=== PATIENT | female | born 1960 | race Caucasian/White ===

== ENCOUNTER 2021-05-08 15:16 | Emergency (ER) | payer MEDICARE, OTHER, SELFPAY ==
--- NOTE | ~2021-05-08 | XR_ITS ---
EXAMINATION: XR hip LT 2V w AP pelvis DATE: 05/08/2021 16:12 INDICATION: Left hip pain. TECHNIQUE: An anteroposterior view of the pelvis and 2 views of left hip were obtained. COMPARISON: None. FINDINGS: Bone alignment is normal. No fracture. There is mild osteoarthritis of the hips. There is m oderate lumbar spondylosis. IMPRESSION: 1. Mild osteoarthritis of the hips. Reviewed, dictated and finalized at location A.
[2021-05-08 15:33] VITALS: BP 139/108; PULSE 59; RESP 16; TEMP 36.3; O2SAT 100
--- NOTE | 2021-05-08 15:37 | ED.GENADULT ---
HPI - General Adult General Chief complaint: Extremity Problem,Nontraumatic Stated complaint: lt hip pain Time Seen by Provider: 05/08/21 15:37 Source: patient, family (spouse (Eva gave permission to speak in front of)) and RN notes reviewed Mode of arrival: wheelchair Limitations: no limitations History of Present Illness HPI narrative: 60-year-old female presents with complaints of left hip pain for the past 4-5 days. Eva reports she started having pain in LT hip without injury. Ibuprofen 400mg last on 05/08/2021 without relief. Denies radiation of pain. ?No numbness or tingling or bleeding. ?No swelling. ?No loss of mobility. Exacerbating factor consists of weight. No relieving factors. Denies recent travel or long car rides. No history of DVT or PE. No chest pain or dyspnea. Remains active. ?The patient reports she has not been diagnosed with COVID-19. The patient reports she received 2 Pfizer COVID-19 vaccines. The patient reports she is not waiting for the results of a COVID-19 lab test. ?The patient reports she does not have fever, chills, weakness, or fatigue. ?The patient reports she does not have a new or worsening cough. The patient reports she does not have any rhinorrhea, congestion, sore throat, loss of taste and/or smell, abdominal pain, and diarrhea. ?Tolerating po intake well. ?Denies concerns for COVID-19 or exposures. ?At this time, the patient is not suspected of having COVID-19. Some parts of this dictation were generated by voice recognition software and may contain typographical and/or grammatical inaccuracies. Related Data Home Medications Medication Instructions Recorded Confirmed hydrocodone 5 mg-acetaminophen 325 1 tablet PO Q6H PRN 03/28/20 03/28/20 mg tablet nadolol 05/08/21 Allergies Allergy/AdvReac Type Severity Reaction Status Date / Time No Known Allergies Allergy Verified 03/28/20 16:20 Review of Systems Review of Systems: CONSTITUTIONAL: Denies fever, chills, sweats. EYES: Denies visual changes, redness, discharge. ENT: Denies rhinorrhea, congestion, sore throat, otalgia. CARDIOVASCULAR: Denies chest pain, palpitations, edema. RESPIRATORY: Denies dyspnea, wheezing, cough. GASTROINTESTINAL: Denies abdominal pain, nausea, vomiting, diarrhea. GENITOURINARY: Denies dysuria, hematuria, abnormal discharge SKIN: Denies rash or itching. MUSCULOSKELETAL: Denies acute back pain or myalgia. Complains of LT hip pain, NEUROLOGIC: Denies numbness, or focal weakness. PSYCHIATRIC: Denies anxiety or depression. All systems reviewed & are unremarkable except as noted in HPI and below. [facility] Past Medical History Medical History (Updated 05/08/21 @ 16:30 by JUAN A Borges) Anxiety Crying for unknown reason Depression Essential (primary) hypertension Fibromyalgia GERD without esophagitis Psoriasis Psoriatic arthritis Seasonal allergies Type 2 diabetes mellitus without complication, without long-term current use of insulin Surgical History Surgical History (Updated 05/08/21 @ 16:02 by JUAN A Borges) History of section History of hernia surgery History of hysterectomy Family History Family History Mother Family history of chronic obstructive pulmonary disease Hypertension Father Patient's father is in good health Grandparent Diabetes mellitus Family history of alcoholism Sibling Diabetes mellitus Other Family history of arthritis Family history of cardiovascular disease Family history of heart disease in male family member before age 55 Social History Social History (Updated 05/08/21 @ 16:03 by JUAN A Borges) Smoking status: Never smoker Tobacco type: cigarettes Second hand tobacco smoke exposure: Yes Alcohol intake: current Alcohol use details: consumes beer socailly Substance use: never Substance use type: does not use Living arrangement
[2021-05-08] MEDS: KETOROLAC (*BKC) 60 MG/2 ML VIAL IM (16:01)
[2021-05-08] MEDS: ONDANSETRON INJ 4 MG/2 ML VIAL 8 MG IM (16:21)
== END 2021-05-08 16:43 | disposition home or self-care (01) ==
PROVIDERS: Emergency Provider Nurse Practitioner Family; PCP Family Medicine
DX: M16.12 Unilateral primary osteoarthritis, left hip (principal); I10 Essential (primary) hypertension; M79.7 Fibromyalgia; G21.9 Secondary parkinsonism, unspecified; L40.50 Arthropathic psoriasis, unspecified; E11.9 Type 2 diabetes mellitus without complications; Z79.4 Long term (current) use of insulin
CPT/HCPCS: 73502; 96372; 99214; G0463; J1885; J2405

== ENCOUNTER 2021-05-24 15:38 | Emergency (ER) | payer MEDICARE, OTHER, SELFPAY ==
[2021-05-24 15:43] VITALS: BP 174/88; PULSE 77; RESP 18; O2SAT 100
[2021-05-24 15:47] LABS: Glucose Point of Care 395 mg/dl (65-105)
[2021-05-24 19:20] VITALS: BP 160/89; PULSE 64; RESP 17; TEMP 36.3; O2SAT 100
[2021-05-24 19:44] LABS: Basophils Absolute Auto 0.1 K/mm3 (0.0-0.1); Eosinophils Absolute Auto 0.2 K/mm3 (0-0.3); Eosinophils Percent Auto 3.4 % (0-4.4); Hematocrit 41.3 % (37.0-47.0); Hemoglobin 14.9 g/dL (12.0-15.0); Immature Granulocyte Absolute 0.01 K/mm3 (0.00-0.031); Immature Granulocyte Percent A 0.1 % (0-0.5); Lymphocytes Absolute Auto 2.53 K/mm3 (0.9-3.2); Lymphocytes Percent Auto 37.8 % (18.3-44.2); Mean Corpuscular HGB Conc 36.1 g/dl (32-36); Mean Corpuscular Hemoglobin 33.3 pg (26-34); Mean Corpuscular Volume 92.4 fl (80-100); Mean Platelet Volume 10.3 fl (7.4-10.4); Monocytes Absolute Auto 0.6 K/mm3 (0.1-0.6); Monocytes Percent Auto 8.7 % (2.6-8.5); Neutrophils Absolute Auto 3.3 K/mm3 (1.3-6.7); Platelet Count Result 179 k/mm3 (150-375); Red Blood Count 4.47 M/mm3 (4.2-5.4); Red Cell Distribution Width 11.5 % (11.5-14.5); White Blood Count 6.7 K/mm3 (4.5-10.0)
[2021-05-24 19:56] LABS: Alanine Aminotransferase 39 U/L (4-35); Albumin Level 3.9 g/dL (3.5-5.1); Alkaline Phosphatase 146 U/L (38-126); Anion Gap 8 mmol/L (8-16); Aspartate Amino Transferase 56 U/L (14-36); Bilirubin,Total 0.9 mg/dL (0.2-1.3); Blood Urea Nitrogen 12 mg/dL (7-17); Calcium 8.9 mg/dL (8.4-10.2); Carbon Dioxide 27 mmol/L (22-30); Chloride 94 mmol/L (98-107); Estimated CRCL calculation 98 ml/min; Estimated Glomerular Filt Rate > 60; Glucose 322 mg/dL (65-110); Potassium 3.5 mmol/L (3.4-5.0); Sodium 129 mmol/L (137-145)
[2021-05-24 20:02] VITALS: BP 164/96; PULSE 58; RESP 14; O2SAT 99
[2021-05-24] MEDS: LACTATED RINGERS 1,000 ML 999 ML IV CONT ×2 (20:09)
--- NOTE | 2021-05-24 20:38 | ED.RECABL ---
HPI - Recheck/Abnormal Lab/Rx General Chief Complaint: Recheck/Abnormal Lab/Rx Stated Complaint: blood sugar >600 Time Seen by Provider: 05/24/21 19:20 Source: patient Mode of arrival: ambulatory Limitations: no limitations History of Present Illness HPI narrative: 60-year-old female Here for high blood sugar Patient had not been to see her PCP for quite some time and had discontinued Metformin on her own months ago Yesterday she had her first scheduled appointment and had blood drawn and received a call from the office in the afternoon stating that her blood sugar was very high and that she ought to be evaluated in the ED She did alter her glipizide to a total of 20 mg a day based upon that visit She does not really feel bad, not having nausea or vomiting, no fever is urinating a lot, maybe a little weak She did wonder if she might of had Covid in mid April because she felt very bad for a few days She has received the [email or web address] Covid vaccination earlier this year Related Data Home Medications Medication Instructions Recorded Confirmed naltrexone 50 mg tablet 3 mg PO DAILY tablet 05/23/21 05/23/21 Allergies Allergy/AdvReac Type Severity Reaction Status Date / Time No Known Allergies Allergy Verified 05/23/21 16:04 Review of Systems Review of Systems: All systems reviewed & are unremarkable except as noted in HPI and below Constitutional: Constitutional: Reports no additional constitutional complaints, Denies chills, Reports fatigue, Denies fever(s) and Denies headache(s) Eyes: Eyes: Reports no additional eye complaints and Denies change in vision ENT: Denies headache(s) and Denies sore throat Cardiovascular: Cardiovascular: Denies chest pain and Denies dyspnea Respiratory: Respiratory: Denies cough and Denies dyspnea Gastrointestinal: Gastrointestinal: Denies abdominal pain, Denies diarrhea, Denies nausea and Denies vomiting Genitourinary: Genitourinary: Denies urinary frequency, Reports nocturia, Denies dysuria and Denies urinary incontinence Musculoskeletal: Musculoskeletal: Denies deformity, Denies arthralgias, Denies joint swelling and Denies numbness Integumentary/Breasts: Skin/Breast: Denies rash and Denies wounds Neurologic: Denies headache(s), Denies focal weakness and Denies numbness Psychiatric: Psychiatric: Reports no additional psychiatric complaints Endocrine: Endocrine: Reports no additional endocrine complaints Hematologic/Lymphatic: Hematologic/Lymphatic: Reports no additional hematologic/lymphatic complaints Allergic/Immunologic: Allergic/Immunologic: Reports no additional allergic/immunologic complaints [facility] Past Medical History Medical History (Updated 05/24/21 @ 20:39 by Mu Ramon MD) Anxiety Depression Essential (primary) hypertension Fibromyalgia GERD without esophagitis Liver disease, chronic Psoriasis Psoriatic arthritis Seasonal allergies Type 2 diabetes mellitus without complication, without long-term current use of insulin Surgical History Surgical History History of section History of hernia surgery History of hysterectomy Family History Family History Mother Family history of chronic obstructive pulmonary disease Hypertension Father Patient's father is in good health Grandparent Diabetes mellitus Family history of alcoholism Sibling Diabetes mellitus Other Family history of arthritis Family history of cardiovascular disease Family history of heart disease in male family member before age 55 Social History Social History Smoking status: Never smoker Tobacco type: cigarettes Second hand tobacco smoke exposure: Yes Alcohol intake: current Alcohol use details: consumes beer socailly Substance use: never Substance use type: does not use Additional occupa
[2021-05-24 21:09] LABS: Hemoglobin A1C 11.7 % (<5.7)
[2021-05-24 21:13] VITALS: BP 157/94; PULSE 60; RESP 14; O2SAT 100
[2021-05-24 21:21] LABS: Glucose Point of Care 258 mg/dl (65-105)
== END 2021-05-24 21:24 | disposition home or self-care (01) ==
PROVIDERS: Emergency Provider Emergency Medicine; PCP Family Medicine
DX: E11.65 Type 2 diabetes mellitus with hyperglycemia (principal); I10 Essential (primary) hypertension; M79.7 Fibromyalgia; K21.9 Gastro-esophageal reflux disease without esophagitis; K76.9 Liver disease, unspecified; L40.50 Arthropathic psoriasis, unspecified; Z79.84 Long term (current) use of oral hypoglycemic drugs; Z91.14 Patient's other noncompliance with medication regimen
CPT/HCPCS: 36415; 80053; 82010; 82948; 83036; 85025; 96360; 99283; J7120

== ENCOUNTER 2022-01-31 11:55 | Emergency (ER) | payer MEDICARE, OTHER, SELFPAY ==
[2022-01-31 12:06] VITALS: BP 169/102; PULSE 75; RESP 20; TEMP 36.2; O2SAT 100
--- NOTE | 2022-01-31 12:32 | ED.GENADULT ---
HPI - General Adult General Chief complaint: Back Pain/Injury Stated complaint: PAIN Time Seen by Provider: 01/31/22 12:20 Source: patient and RN notes reviewed Mode of arrival: ambulatory Limitations: no limitations History of Present Illness HPI narrative: Patient presents today complaining of pain to the soft tissue of her left medial buttock x2 months that has been getting worse recently. She has been taking Tylenol and ibuprofen without relief. Pain is worsened when she sits, and especially when she goes over bumps in her car. Denies recent illness or fever. States she had a boil on her buttock months ago, but this has since resolved. She has an appoint with her GLOST TILE SHADER next week, but could not wait due to pain. Denies pain when she strains to have a bowel movement. MD complaint: Left buttock pain Related Data Home Medications Medication Instructions Recorded Confirmed naltrexone 50 mg tablet 3 mg PO DAILY tablet 05/23/21 01/31/22 aspirin 81 mg tablet,delayed 81 mg PO DAILY 06/14/21 01/31/22 release empagliflozin [Jardiance] mg 01/31/22 semaglutide [Ozempic] mg SUBCUT 01/31/22 Allergies Allergy/AdvReac Type Severity Reaction Status Date / Time No Known Allergies Allergy Verified 01/31/22 12:09 Review of Systems Review of Systems: CONSTITUTIONAL: Denies body aches, fever, chills, or sweats. EYES: Denies visual changes, redness, or discharge. ENT: Denies rhinorrhea, congestion, sore throat, or otalgia. CARDIOVASCULAR: Denies chest pain, palpitations, or edema. RESPIRATORY: Denies cough or dyspnea. GASTROINTESTINAL: Denies abdominal pain, nausea, vomiting, or diarrhea. GENITOURINARY: Denies dysuria or hematuria. SKIN: Denies rash, itching, or wounds+ left buttock pain. MUSCULOSKELETAL: Denies back pain, joint pain, or myalgia. NEUROLOGIC: Denies headache, numbness, tingling, or weakness. PSYCH: Denies depression or anxiety. [facility] Past Medical History Medical History Anxiety Depression Essential (primary) hypertension Fibromyalgia GERD without esophagitis Liver disease, chronic Psoriasis Psoriatic arthritis Seasonal allergies Type 2 diabetes mellitus without complication, without long-term current use of insulin Surgical History Surgical History History of section (~2000) History of hernia surgery (Unknown) History of hysterectomy (Unknown) Family History Family History Mother Family history of chronic obstructive pulmonary disease Hypertension Father Patient's father is in good health Grandparent Diabetes mellitus Family history of alcoholism Sibling Diabetes mellitus Other Family history of arthritis Family history of cardiovascular disease Family history of heart disease in male family member before age 55 Social History Social History Smoking status: Never smoker Tobacco type: cigarettes Second hand tobacco smoke exposure: Yes Alcohol intake: current Alcohol use details: consumes beer socailly Substance use: never Substance use type: does not use 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 Please see nursing chart for further information. There is no relevant family history pertinent to the presenting complaint Exam Narrative: GENERAL: Well-appearing, well-nourished, and in no acute distress. HEAD: Normocephalic, atraumatic. EYES: EOMI. No redness or drainage. Conjunctivae normal. ENT: Mucous membranes pink and mo
[2022-01-31 12:40] VITALS: BP 145/86
== END 2022-01-31 12:40 | disposition home or self-care (01) ==
PROVIDERS: Emergency Provider Nurse Practitioner; PCP Obstetrics & Gynecology
DX: M79.10 Myalgia, unspecified site (principal); I10 Essential (primary) hypertension; M79.7 Fibromyalgia; K21.9 Gastro-esophageal reflux disease without esophagitis; L40.50 Arthropathic psoriasis, unspecified; E11.9 Type 2 diabetes mellitus without complications; K76.9 Liver disease, unspecified; Z79.84 Long term (current) use of oral hypoglycemic drugs
CPT/HCPCS: 99212; G0463

== ENCOUNTER 2022-12-12 14:24 | Outpatient (CLI) | payer MEDICARE, OTHER, SELFPAY ==
--- NOTE | ~2022-12-12 | MM_ITS ---
EXAMINATION: MM screening antoinette BI w sravan HISTORY: Screening mammogram TECHNIQUE: Craniocaudal and mediolateral oblique 3-D tomosynthesis images were obtained and synthetic 2-D images were generated. CAD analysis was submitted and interpreted. COMPARISON: 08/13/2011, 06/06/2009 BREAST PARENCHYMAL COMPOSITION: The breasts are almost entirely fatty. FINDINGS: No suspicious mass, calcification, or architectural distortion are identified in either brigida ast to suggest malignancy. There has been no suspicious interval change. IMPRESSION: 1. No mammographic evidence of malignancy. 2. Recommend routine screening mammography in one year. BI-RADS Category 1: Negative Reviewed, dictated and finalized at location A. MIXER
== END 2022-12-12 14:25 | disposition home or self-care (01) ==
PROVIDERS: PCP Family Medicine; Visit Provider Obstetrics & Gynecology
DX: Z12.31 Encounter for screening mammogram for malignant neoplasm of breast (principal)
CPT/HCPCS: 77063; 77067

== ENCOUNTER 2023-05-29 13:08 | Outpatient (CLI) | payer MEDICARE, OTHER, SELFPAY ==
--- NOTE | ~2023-05-29 | CT_ITS ---
EXAMINATION: CT sinus wo con DATE: 05/29/2023 13:31 INDICATION: Chronic ethmoidal sinusitis TECHNIQUE: Computed tomography (CT) of the paranasal sinuses was performed without intravenous contra st. The dose-length product was 287.97 mGy-cm. Automated exposure control and iterative reconstructio n technique were employed. COMPARISON: None FINDINGS: There is extensive mucosal thickening of the left maxillary, ethmoid, sphenoid and frontal sinuses. Mastoids are pneumatized. No significant nasal septal deviation there is occlusion of the le ft ostiomeatal unit. IMPRESSION: 1. Extensive sinusitis of the left paranasal sinuses with occlusion of the ostiomeatal unit. Reviewed, dictated and finalized at location L. IMPRESSION: 1. Extensive sinusitis of the left paranasal sinuses with occlusion of the osti omeatal unit.
== END 2023-05-29 13:09 ==
LOC: MICIMG 13:10
PROVIDERS: PCP Family Medicine; Visit Provider Otolaryngology
DX: J32.2 Chronic ethmoidal sinusitis (principal)
CPT/HCPCS: 70486

== ENCOUNTER 2023-08-14 12:07 | Outpatient (CLI) | payer MEDICARE, OTHER, SELFPAY ==
--- NOTE | 2023-08-14 12:36 | ECG_ITS ---
Measurements Intervals [place] Rate: 66 P: 31 DE: 245 QRS: -27 QRSD: 91 T: 6 QT: 403 QTc: 422 Interpretive Statements SINUS RHYTHM WITH FIRST DEGREE AV BLOCK VOLTAGE CRITERIA FOR LV POOR R WAVE PROGRESSION, ANTERIOR LEADS BORDERLINE T WAVE ABNORMALITY- ANT/INF LEADS BASELINE ARTIFACT- I, II, III, AVR, AVL, AVF, V1-V6 BORDERLINE ECG NO PREVIOUS ECG AVAILABLE FOR COMPARISON Electronically Signed On 08-14-2023 12:57:15 [employer] by Geoff Bishop D.O.
[2023-08-14 13:12] LABS: Anion Gap 8 mmol/L (8-16); Blood Urea Nitrogen 11 mg/dL (7-17); Calcium 9.5 mg/dL (8.4-10.2); Carbon Dioxide 31 mmol/L (22-30); Chloride 96 mmol/L (98-107); Estimated Glomerular Filt Rate > 60; Glucose 151 mg/dL (65-110); Potassium 4.6 mmol/L (3.4-5.0); Sodium 135 mmol/L (137-145)
[2023-08-14 13:14] LABS: INR 1.1; Partial Thromboplastin Time 30.6 SECONDS (22.3-36.8); Prothrombin Time 14.5 Seconds (11.1-14.7)
== END 2023-08-14 12:08 | disposition home or self-care (01) ==
LOC: ANHSURGERY 12:14
PROVIDERS: Anesthesiology; PCP Family Medicine; Visit Provider Otolaryngology
DX: Z01.818 Encounter for other preprocedural examination (principal); K76.9 Liver disease, unspecified; E11.9 Type 2 diabetes mellitus without complications; R94.31 Abnormal electrocardiogram [ECG] [EKG]
CPT/HCPCS: 36415; 80048; 85610; 85730; 93005

== ENCOUNTER 2023-08-15 02:58 | Day surgery (SDC) | payer MEDICARE, OTHER, SELFPAY ==
[2023-08-12 12:23] VITALS: BMI 32.0
--- NOTE | 2023-08-12 12:30 | PC.NURSE ---
Report to the Outpatient Waiting Room, entrance under the green pavilion located off [facility], at time 10:00 on date 08/15/23. Planned Procedure Time: 12:00. Time changes happen often and if your time is changed the preop area will call you the afternoon before. - You and your visitor will be asked to self-screen and do not enter if you have any COVID symptoms. - A mask is optional within the hospital at this time. Patients may have clear liquids (water, carbonated beverages, clear teas, apple juice) until 3 hours prior to surgery (9:00) with a maximum of 20 ounces. - No food from midnight until time of surgery Take the following medications with a SIP of water the morning of surgery: AMLODIPINE, BUPROPION, DOXYCYCLINE, NADOLOL, PREDNISONE DO NOT STOP ANY OF YOUR OTHER PRESCRIPTION MEDICATIONS PRIOR TO SURGERY ?EXCEPT THE FOLLOWING Medications to discontinue per physician: VITAMINS/SUPPLEMENTS Date to take last dose: NO MORE UNTIL AFTER SURGERY PT HAS ALREADY STOPPED ASPIRIN. Please no make-up, nail cuban, hairspray, perfume, deodorant, or body powder the day of surgery. No jewelry (including any body piercings) or valuables the day of surgery, leave them at home. Please take a shower or bath the night before, or the morning of, surgery with an antibacterial soap. Wear comfortable, loose fitting clothing. - Jewelry must be removed prior to entering the operating room. Rings and piercings that are not removed may be cut off. - The hospital will not accept responsibility for valuables. - Please leave all valuables, including medications, at home the day of surgery. If you are going home after surgery, a licensed sprinkler driver must drive you home. - NO public transportation without another adult if you receive anesthesia. - We recommend that an adult stay with you for 24 hours following discharge. - We also recommend that you do not drive, make important decision, drink alcoholic beverages, or take any drugs that were not prescribed by your health care provider for at least 24 hours after your discharge time. Follow any additional instructions given to you from your surgeon. If you or anyone in your household have experienced Covid symptoms in the past week, please notify your surgeon or the nurse liaison at the phone number below for possible testing. Telephone instructions given to PT - FLAQUITO RIDLEY and asked if any additional questions and then verbalized understanding. Patient advised to call surgeon office or pre surgery nurse liaison [phone] if any additional questions.
--- NOTE | 2023-08-14 17:25 | PM.IMHP ---
H&P: HPI History of Present Illness Date/Time: 08/14/23 17:25 Chief Complaint: Septal deviation chronic sinusitis turbinate hypertrophy Narrative: planned procedure Review of Systems Review of Systems: All systems reviewed & are unremarkable except as noted in HPI and below [facility] Past Medical History Medical History (Updated 07/30/23 @ 12:18 by Christy Eckert APRN) Anxiety Depression Essential (primary) hypertension Fibromyalgia GERD without esophagitis Liver disease, chronic Major depressive disorder, single episode, unspecified Obesity, unspecified Polyosteoarthritis, unspecified Psoriasis Psoriatic arthritis Pure hypercholesterolemia Recurrent URI (upper respiratory infection) Seasonal allergies Type 2 diabetes mellitus without complication, without long-term current use of insulin Surgical History Surgical History History of section (~1999) History of hernia surgery (Unknown) History of hysterectomy (Unknown) History of ovarian cystectomy chocolate cyst Family History Family History Mother Family history of chronic obstructive pulmonary disease Hypertension Depression Father No problems noted. Grandparent Diabetes mellitus Family history of alcoholism Acute myocardial infarction Depression Heart disease Hypertension Sibling Diabetes mellitus Depression Hypertension Other Cerebrovascular accident neice-drug induced Depression aunt Hypertension aunt Other Family history of arthritis Family history of heart disease in male family member before age 55 Social History Social History Smoking status: Never smoker Tobacco type: cigarettes Second hand tobacco smoke exposure: Yes Alcohol intake: current Drinks per week: 4 Alcohol use details: consumes beer socially Substance use: current Substance use type: marijuana Other substance usage details: occasional use Lack of Transportation: YES Lack of Food: Never True Current Housing: I Have Housing Concerned About Future Housing: No Difficulty Paying Gas/Electric Bills: Decline to Answer Difficulty Paying for Meds: No Currently Unemployed: No Education: High School Diploma/GED Difficulty w/ Childcare or Family Care: No Living arrangements: with family Occupation/Education: other 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 concerns: No Meds Home Medications and Allergies Home Medications Medication Instructions Recorded Confirmed Type blood sugar diagnostic #100 ea 05/24/21 07/30/23 Rx blood-glucose meter #1 ea 05/24/21 07/30/23 Rx aspirin 81 mg tablet,delayed 81 mg PO DAILY 06/14/21 08/12/23 History release lancets (Accu-Chek Softclix #100 ea 10/10/21 07/30/23 Rx Lancets) metformin 500 mg tablet,extended 1,000 mg PO BID #360 tabs 03/11/23 08/12/23 Rx release 24hr nadolol 20 mg tablet 40 mg PO DAILY #180 tabs 04/29/23 08/12/23 Rx amlodipine 5 mg tablet 5 mg PO DAILY #90 tabs 05/02/23 08/12/23 Rx atorvastatin 10 mg tablet (Lipitor) 10 mg PO DAILY #90 tabs 05/21/23 08/12/23 Rx blood sugar diagnostic (Accu-Chek #300 ea 05/21/23 07/30/23 Rx Guide test strips) blood-glucose meter (Accu-Chek #1 ea 05/21/23 07/30/23 Rx Guide Glucose Meter) blood-glucose sensor (Dexcom G7 #9 ea 05/21/23 07/30/23 Rx Sensor device) fluticasone propionate 50 See Rx Instructions .Route 05/21/23 08/12/23 History mcg/actuation nasal .COMPLEX PRN Congestion spray,suspension glipizide 10 mg tablet, extended 10 mg PO BID #60 tabs 06/20/23 08/12/23 Rx release 24 hr semaglutide 1 mg/dose (4 mg/3 mL) See Rx Ins
[2023-08-15] VITALS (14 sets, daily range): BP systolic 131–159; BP diastolic 67–95; PULSE 62–66; RESP 11–22; TEMP 36.2–36.6; O2SAT 94–100; BMI 31.6
--- NOTE | 2023-08-15 07:19 | WPDHPUPDATE1 ---
History and Physical Update Update Date/Time: 08/15/23 07:19 History and Physical has been reviewed, including an updated exam of the patient. There are NO changes in the patient's condition. Risks, benefits, and alternatives have been discussed and questions answered. Patient agrees to proceed with procedure.
[2023-08-15 11:04] LABS: Glucose Point of Care 185 mg/dl (65-105)
[2023-08-15] MEDS: ACETAMINOPHEN 500 MG TABLET 1000 MG PO (11:11)
--- NOTE | 2023-08-15 12:02 | WPDANESEPPF ---
Anes - Initial Pre Proc Eval Procedure: Operation Date: 08/15/23 12:00 Proposed Procedures p Image Guided Bilateral Turbinate Reduction with Outfracture, Left Side Maxillary Antrostomy, Left Ethmoidectomy, Left Frontal Sinusotomy, Left Sphenoidotomy with Tissue Removal - Antony Martinez MD s Endoscopic Septoplasty - Antony Martinez MD Date/Time: 08/15/23 12:02 Surgeon: Antony Martinez MD Pre Op Diagnosis: Chr Sinusitis, Dev Nasal Septum (cont) Patient Data Age: 62 Gender: F Height: 1.6 m Weight: 80.9 kg Last Vital Signs Temp 36.6 C 08/15/23 10:06 Pulse 64 08/15/23 10:06 Resp 18 08/15/23 10:06 BP 146/82 H 08/15/23 10:06 Pulse Ox 100 08/15/23 10:06 O2 Del Method Room Air 08/15/23 10:06 Allergies Allergy/AdvReac Type Severity Reaction Status Date / Time No Known Allergies Allergy Verified 08/15/23 10:29 Home Medications Medication Instructions Recorded Confirmed Type blood sugar diagnostic #100 ea 05/24/21 07/30/23 Rx blood-glucose meter #1 ea 05/24/21 07/30/23 Rx aspirin 81 mg tablet,delayed 81 mg PO DAILY 06/14/21 08/15/23 History release lancets (Accu-Chek Softclix #100 ea 10/10/21 07/30/23 Rx Lancets) metformin 500 mg tablet,extended 1,000 mg PO BID #360 tabs 03/11/23 08/15/23 Rx release 24hr nadolol 20 mg tablet 40 mg PO DAILY #180 tabs 04/29/23 08/15/23 Rx amlodipine 5 mg tablet 5 mg PO DAILY #90 tabs 05/02/23 08/15/23 Rx atorvastatin 10 mg tablet (Lipitor) 10 mg PO DAILY #90 tabs 05/21/23 08/15/23 Rx blood sugar diagnostic (Accu-Chek #300 ea 05/21/23 07/30/23 Rx Guide test strips) blood-glucose meter (Accu-Chek #1 ea 05/21/23 07/30/23 Rx Guide Glucose Meter) blood-glucose sensor ([employer] G7 #9 ea 05/21/23 07/30/23 Rx Sensor device) fluticasone propionate 50 See Rx Instructions .Route 05/21/23 08/15/23 History mcg/actuation nasal .COMPLEX PRN Congestion spray,suspension glipizide 10 mg tablet, extended 10 mg PO BID #60 tabs 06/20/23 08/15/23 Rx release 24 hr semaglutide 1 mg/dose (4 mg/3 mL) See Rx Instructions .Route 06/30/23 08/15/23 Rx subcutaneous pen injector (Ozempic) .COMPLEX #3 mL dextromethorphan 20 mg-quinidine 1 cap PO Q12H #60 caps 07/10/23 08/15/23 Rx 10 mg capsule (Nuedexta) empagliflozin 25 mg tablet 25 mg PO DAILY 1 month #30 tabs 07/29/23 08/15/23 Rx (Jardiance) bupropion HCl 300 mg 24 hr tablet, 300 mg PO QAM #90 tabs 07/30/23 08/15/23 Rx extended release (Wellbutrin XL) meloxicam 7.5 mg tablet 7.5 mg PO DAILY #30 tabs 07/30/23 08/15/23 Rx doxycycline hyclate 100 mg capsule 100 mg PO Q12H 14 days #28 caps 08/10/23 08/10/23 Rx prednisone 5 mg tablet 5 mg PO .daily #14 tabs 08/10/23 08/10/23 Rx deucravacitinib 6 mg tablet 6 mg PO DAILY 08/12/23 08/15/23 History (Sotyktu) melatonin 10 mg tablet 10 mg PO HS PRN Insomnia 08/12/23 08/15/23 History valsartan 160 1 tablet PO DAILY #90 tabs 08/13/23 Rx mg-hydrochlorothiazide 12.5 mg tablet Laboratory Tests 08/15/23 10:59 POC Capillary Glucose 185 H mg/dl (65-105) Patient hx anesthesia problems: none Family hx anesthesia problems: none Results Review: All pre-operative results and documents have been reviewed as part of the pre-operative evaluation. [facility] Past Medical History Medical History Anxiety Depression Essential (primary) hypertension Fibromyalgia GERD without esophagitis Liver disease, chronic Major depressive disorder, single episode, unspecified Obesity, unspecified Polyosteoarthritis, unspecified Psoriasis Psoriatic arthritis Pure hypercholesterolemia Recurrent URI (upper respiratory infection) Seasonal allergies Type 2 diabetes mellitus without complication, without long-term current use of insulin Surgical History Surgical History History of section (~1999) History of hernia surgery (Unknown) Histor
[2023-08-15] MEDS: LACTATED RINGERS 1,000 ML 30 ML IV CONT (12:11)
[2023-08-15] MEDS: MIDAZOLAM HCL (*CRX) 2 MG/2 ML VIAL IV PUSH (12:12)
[2023-08-15] MEDS: ceFAZolin 2 GM/D5W 50 ML 2 GM/50 ML BAG IVPB (12:37)
[2023-08-15] MEDS: LIDO 1%/EPINEPHRINE 1:100,000 50 ML VIAL 10 ML INFILTRATE (13:08)
[2023-08-15] MEDS: OXYMETAZOLINE HCL 0.05% NAS 15 ML BTL (*BKC) 1 SPRAY NASAL (13:09)
[2023-08-15] MEDS: ONDANSETRON INJ 4 MG/2 ML VIAL IV PUSH ×2 (15:41→16:03)
--- NOTE | 2023-08-15 15:41 | W.PM.PROC2 ---
Procedure Note - Detailed Date of Procedure 08/15/23 Pre-op Diagnosis Chr Sinusitis, Dev Nasal Septum, odontogenic sinusitis Post-op Diagnosis Same Procedure Performed Left middle turbinectomy, left maxillary antrostomy with tissue removal endoscopic image guided, left total ethmoidectomy image guided endoscopic, left image guided endoscopic sphenoidotomy with tissue removed, bilateral inferior turbinate reduction with outfracture Surgeon Antony Martinez MD Anesthesia General Indications See above Findings Copious amounts of diseased tissue and purulence located within all the aforementioned sinuses. The tissue was so inflamed I was unable to successfully perform frontal sinusotomy. The left lamina appeared thin and from the copious amounts of purulence located against it. When the eyeball was pushed the lamina bulge however the bone still appeared intact. Description of Procedure Patient identified consent verified in the preoperative holding area. The patient was brought to the operating room. Time-out performed. General anesthesia induced endotracheal tube secured airway. Patient prepped draped position procedure confirm 2nd time-out performed. Image guidance initiated confirmed. Afrin-soaked pledgets placed on left side for 5 minutes then. 0 degree endoscope utilized. The septum was slightly obstructive however the middle turbinate appeared nonviable completely full of purulence. Decision was made to perform middle turbinectomy local was injected straight through cuts utilized to cut the middle turbinate stump was cauterized with Bovie suction electrocautery setting of 15. Maxillary antrostomy was performed with double ball-tip probe straight through cut backbiter down-biting stone burger image guidance and microdebrider. Copious amounts of purulence. Inflamed tissue. This was taken from the uncinate all way posteriorly to the back wall the maxillary sinus. Ethmoidectomy performed with Kerrison and microdebrider. Bleeding was an issue we had to stop frequently to packed with Afrin-soaked pledgets and irrigated with warm sterile saline. The same unable to take ethmoids all the way to the skull base. Before the ethmoid along the orbit were completely removed the orbit to the eyeball was pushed on a slight bulge was noted in the nasal passage. The decision was made to avoid debriding any tissue were ethmoids along the orbit given that the infection and likely thin the lamina significantly since the CT scan. Sphenoidotomy was performed with image guidance Kerrison as well as sphenoid punch. The posterior septal artery was cauterized to prevent any bleeding due to hello I had to take the sphenoid to remove all the tissue from it. This was done with the microdebrider and copious amounts of irrigation flushed out all the diseased tissue and purulence. Maxillary sinus on the left had also be copiously irrigated with about half a L saline to remove all the purulence located within it debrider was utilized to remove the diseased tissue from maxillary sinus. I was unable to cannulate the frontal sinus and the decision was made because of the inflammation bleeding as well as possibly dehiscent orbit to avoid performing frontal sinusotomy at this time. Turbinates were outfractured prior for access on the right for breathing on the left for access the inferior turbinates. Blood loss about 150 cc. I performed all dictated portions of procedure. Care the patient given Anesthesiology. No pack was placed on the left side. Patient had vision in the left eye with full extraocular following the procedure. Estimated Blood Loss -150.0 Drains No Packing No Pathology None sent Complications No immediate complications Condition Stable Disposition PACU [facility] Billing Surgery - Charge Forward: Surgery Billing
[2023-08-15 15:46] LABS: Glucose Point of Care 205 mg/dl (65-105)
[2023-08-15] MEDS: fentaNYL CITRATE INJ (*CRX) 100 MCG/2 ML VIAL 25 MCG IV PUSH (16:24)
[2023-08-15] MEDS: SCOPOLAMINE 1.5 MG PATCH TRANSDERM (16:31)
[2023-08-15] MEDS: FAMOTIDINE 20 MG/2 ML VIAL IV PUSH (17:14)
== END 2023-08-15 18:26 | disposition home or self-care (01) ==
PROVIDERS: PCP Family Medicine; Visit Provider Otolaryngology
PROC: (CPT 31267; principal; 2023-08-15 12:00)
DX: J32.9 Chronic sinusitis, unspecified (principal); J34.2 Deviated nasal septum; J34.3 Hypertrophy of nasal turbinates; I10 Essential (primary) hypertension; E11.9 Type 2 diabetes mellitus without complications; K76.9 Liver disease, unspecified; M79.7 Fibromyalgia; K21.9 Gastro-esophageal reflux disease without esophagitis; E78.00 Pure hypercholesterolemia, unspecified; L40.50 Arthropathic psoriasis, unspecified; L40.9 Psoriasis, unspecified; F41.9 Anxiety disorder, unspecified; F32.9 Major depressive disorder, single episode, unspecified; E66.9 Obesity, unspecified; Z68.31 Body mass index [BMI] 31.0-31.9, adult; F12.90 Cannabis use, unspecified, uncomplicated; Z79.82 Long term (current) use of aspirin; Z79.84 Long term (current) use of oral hypoglycemic drugs; Z79.85 Long-term (current) use of injectable non-insulin antidiabetic drugs
CPT/HCPCS: 31267; 31259; 30930; 61782; 82948; A9270; J0690; J1100; J2250; J2405; J2704; J2710; J3010; J7120

== ENCOUNTER 2023-10-01 13:41 | Outpatient (CLI) | payer MEDICARE, OTHER, SELFPAY ==
--- NOTE | ~2023-10-01 | XR_ITS ---
EXAM: XR lumbar spine 2-3V DATE: 10/01/2023 14:07 HISTORY: M79.606 - Pain in leg, unspecified . COMPARISON: None available. FINDINGS: Cholecystectomy clips. Scattered vascular calcifications. Pelvic phleboliths. 5 nonrib-bear ing lumbar-type vertebral bodies. Pedicles intact. 4 mm anterolisthesis at L4-5. Vertebral body heigh ts preserved. Multilevel mild disc space narrowing and moderate marginal osteophytosis. Mild lower nisreen mbar facet hypertrophy and sclerosis. No fracture or dislocation. IMPRESSION: Grade 1 anterolisthesis at L4-5. Multilevel moderate degenerative disc disease. Multileve l mild facet arthropathy. Reviewed, dictated and finalized at location K. ELING STOREKEEPER IMPRESSION: Grade 1 anterolisthesis at L4-5. Multilevel moderate degenerative d isc disease. Multilevel mild facet arthropathy.
--- NOTE | ~2023-10-01 | XR_ITS ---
XR ankle RT 2V 10/01/2023 14:07 Indication: Right ankle pain Procedure: 2 views right ankle Comparison: No prior studies for comparison. Findings: There is anatomic alignment. No acute fracture. There is a degenerative calcaneal enthesoph yte. No foreign bodies. Impression: 1: No significant bone or joint abnormality. Reviewed, dictated and finalized at location B. E STREAM COACH Impression: 1: No significant bone or joint abnormality.
--- NOTE | ~2023-10-01 | XR_ITS ---
EXAM: XR tibia fibula RT 2V DATE: 10/01/2023 14:07 HISTORY: M79.606 - Pain in leg, unspecified . COMPARISON: X-ray ankle 10/01/2023; x-ray knee 06/21/2010. FINDINGS: Minimally decreased mineralization. No fracture or dislocation. No lytic or blastic lesion . Joint spaces are maintained. No erosion or periosteal change. Soft tissues within normal limits. IMPRESSION: No acute osseous finding in the right tibia/fibula. Reviewed, dictated and finalized at location K. NING MULE OPERATOR
== END 2023-10-01 13:42 ==
PROVIDERS: PCP Nurse Practitioner Family; Visit Provider Nurse Practitioner Family
DX: M43.06 Spondylolysis, lumbar region (principal); M51.36 Other intervertebral disc degeneration, lumbar region
CPT/HCPCS: 72100; 73590; 73600

== ENCOUNTER 2023-10-20 19:15 | Outpatient (NON) | payer MEDICARE, SELFPAY | END 2023-10-20 19:16 | disposition home or self-care (01) | LOC: ANHLAB 19:20 | PROVIDERS: PCP Nurse Practitioner Family; Visit Provider Otolaryngology | DX: J32.9 Chronic sinusitis, unspecified (principal) | CPT/HCPCS: 87070; 87075; 87205 ==

== ENCOUNTER 2023-11-05 14:29 | Outpatient (CLI) | payer MEDICARE, SELFPAY ==
--- NOTE | ~2023-11-05 | CT_ITS ---
EXAMINATION: CT sinus wo con DATE: 11/05/2023 15:09 INDICATION: Chronic sinusitis TECHNIQUE: Computed tomography (CT) of the paranasal sinuses was performed without contrast. Iterativ e reconstruction technique was employed. Exam dose: 369.33 mGy-cm total exam DLP. COMPARISON: 05/25/2023 CT sinuses FINDINGS: There is interval surgical intervention with left nasal antral window since 05/25/2023. However, there is severe mucoperiosteal thickening of left maxillary sinus, nearly complete opacifica tion of the left ethmoid air cells and completely opacified left frontal and sphenoid sinuses. With the exception of minimal soft tissue thickening of the right ethmoid air cells, the right perone al sinuses are clear. Normal development and aeration of the mastoid air cells bilaterally. Slight rightward deviation of the nasal septum. There is resection of the left middle nasal turbinate . There is moderate soft tissue swelling of the remaining nasal turbinates. The right ostiomeatal uni t is patent. IMPRESSION: Interval left nasal antral windows since 05/25/2023; however, there is persistent complet e opacification of the left frontal and sphenoid sinuses, extensive opacification of the left ethmoid air cells and severe mucoperiosteal thickening of the left maxillary ostium Reviewed, dictated and finalized at Location A. Reviewed, dictated and finalized at location B. FORMER IMPRESSION: Interval left nasal antral windows since 05/25/2023; however, there is persistent complete opacification of the left frontal and sphenoid sinuses, extensive opacification of the left ethmoid air cells and severe mucoperiostea l thickening of the left maxillary ostium
--- NOTE | ~2023-11-05 | US_ITS ---
EXAMINATION: US venous doppler LE DATE: 11/05/2023 15:35 INDICATION: Right lower limb pain TECHNIQUE: Grayscale ultrasound images without and with compression and Doppler ultrasound images of the right lower extremity veins were obtained. COMPARISON: None. FINDINGS: The visualized portions of right common femoral vein, profunda (deep) femoral vein, femoral vein, pop liteal vein, peroneal trunk, posterior tibial veins, peroneal veins and greater saphenous vein outflo w are patent. IMPRESSION: 1. No deep venous thrombosis in the right lower limb. Reviewed, dictated and finalized at location A. IC HEALTH NUTRITIONIST
== END 2023-11-05 14:30 | disposition home or self-care (01) ==
PROVIDERS: PCP Otolaryngology; Visit Provider Nurse Practitioner Family
DX: J32.9 Chronic sinusitis, unspecified (principal); K04.7 Periapical abscess without sinus
CPT/HCPCS: 70486; 93971

== ENCOUNTER 2023-11-25 13:54 | Outpatient (CLI) | payer MEDICARE, SELFPAY ==
[2023-11-25 15:19] LABS: Anion Gap 9 mmol/L (8-16); Blood Urea Nitrogen 21 mg/dL (7-17); Calcium 10.1 mg/dL (8.4-10.2); Carbon Dioxide 31 mmol/L (22-30); Chloride 93 mmol/L (98-107); Estimated Glomerular Filt Rate 50; Glucose 156 mg/dL (65-110); Potassium 4.2 mmol/L (3.4-5.0); Sodium 133 mmol/L (137-145)
[2023-11-25 15:22] LABS: INR 1.1; Partial Thromboplastin Time 31.6 SECONDS (22.3-36.8); Prothrombin Time 14.5 Seconds (11.1-14.7)
== END 2023-11-25 13:55 | disposition home or self-care (01) ==
LOC: ANHSURGERY 13:57
PROVIDERS: Anesthesiology; PCP Family Medicine; Visit Provider Otolaryngology
DX: E11.9 Type 2 diabetes mellitus without complications (principal); K74.60 Unspecified cirrhosis of liver
CPT/HCPCS: 36415; 80048; 85610; 85730

== ENCOUNTER 2023-11-27 00:25 | Day surgery (SDC) | payer MEDICARE, SELFPAY ==
[2023-11-13 13:45] VITALS: BMI 30.5
--- NOTE | 2023-11-13 14:15 | PC.NURSE ---
Report to the Outpatient Waiting Room, entrance under the green pavilion located off [facility], at time __10:00AM on date ___11/27/23_. Planned Procedure Time: _12:00PM . Time changes happen often and if your time is changed the preop area will call you the afternoon before. - You and your visitor will be asked to self-screen and do not enter if you have any COVID symptoms. - A mask is optional within the hospital at this time. Patients may have clear liquids (water, carbonated beverages, clear teas, apple juice) until 3 hours prior to surgery with a maximum of 20 ounces. - No food from midnight until time of surgery. Take the following medications with a SIP of water the morning of surgery: _AMLODIPINE, BUPROPION, NADOLOL, NUEDEXTA. TAKE OXYCODONE NEEDED DO NOT STOP ANY OF YOUR OTHER PRESCRIPTION MEDICATIONS PRIOR TO SURGERY ?EXCEPT THE FOLLOWING Medications to discontinue per physician __HOLD ASPIRIN 7 DAYS PRE-OP PER DR DIAZ- LAST DOSE 11/19/23.____ HOLD ALL VITAMINS/SUPPLEMENTS 3 DAYS PRE-OP PER ANESTHESIA- LAST DOSE 11/23/23. Please no make-up, nail czech, hairspray, perfume, deodorant, or body powder the day of surgery. No jewelry (including any body piercings) or valuables the day of surgery, leave them at home. Please take a shower or bath the night before, or the morning of, surgery with an antibacterial soap. Wear comfortable, loose fitting clothing. - Jewelry must be removed prior to entering the operating room. Rings and piercings that are not removed may be cut off. - The hospital will not accept responsibility for valuables. - Please leave all valuables, including medications, at home the day of surgery. If you are going home after surgery, a licensed stock car driver must drive you home. - NO public transportation without another adult if you receive anesthesia. - We recommend that an adult stay with you for 24 hours following discharge. - We also recommend that you do not drive, make important decision, drink alcoholic beverages, or take any drugs that were not prescribed by your health care provider for at least 24 hours after your discharge time. Follow any additional instructions given to you from your surgeon. If you or anyone in your household have experienced Covid symptoms in the past week, please notify your surgeon or the nurse liaison at the phone number below for possible testing. Telephone instructions given to ____PATIENT and asked if any additional questions and then verbalized understanding. Patient advised to call surgeon office or pre surgery nurse liaison [phone] if any additional questions.
--- NOTE | 2023-11-26 16:11 | PM.IMHP ---
H&P: HPI History of Present Illness Date/Time: 11/26/23 16:11 Chief Complaint: chronic sinusitis recurrent sinusitis Narrative: planned procedure Review of Systems Review of Systems: All systems reviewed & are unremarkable except as noted in HPI and below PMFSH Past Medical History Medical History Anxiety Depression Essential (primary) hypertension Fibromyalgia GERD without esophagitis Liver disease, chronic Major depressive disorder, single episode, unspecified Obesity, unspecified Polyosteoarthritis, unspecified Psoriasis Psoriatic arthritis Pure hypercholesterolemia Recurrent URI (upper respiratory infection) Seasonal allergies Type 2 diabetes mellitus without complication, without long-term current use of insulin Surgical History Surgical History History of section (~1999) History of hernia surgery (Unknown) History of hysterectomy (Unknown) History of ovarian cystectomy chocolate cyst Family History Family History Mother Family history of chronic obstructive pulmonary disease Hypertension Depression Father No problems noted. Grandparent Diabetes mellitus Family history of alcoholism Acute myocardial infarction Depression Heart disease Hypertension Sibling Diabetes mellitus Depression Hypertension Other Cerebrovascular accident neice-drug induced Depression aunt Hypertension aunt Other Family history of arthritis Family history of heart disease in male family member before age 55 Social History Social History Smoking status: Never smoker Tobacco type: cigarettes Second hand tobacco smoke exposure: Yes Alcohol intake: current Drinks per week: 4 Alcohol use details: consumes beer socially Substance use: current Substance use type: marijuana Other substance usage details: OCCASSIONALLY SMOKES MARIJUANA FOR PAIN RELIEF Lack of Transportation: YES Lack of Food: Never True Current Housing: I Have Housing Concerned About Future Housing: No Difficulty Paying Gas/Electric Bills: Decline to Answer Difficulty Paying for Meds: No Currently Unemployed: No Education: High School Diploma/GED Difficulty w/ Childcare or Family Care: No Living arrangements: with family Additional living arrangements comments: HUSB Occupation/Education: other 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 concerns: No Meds Home Medications and Allergies Home Medications Medication Instructions Recorded Confirmed Type blood sugar diagnostic #100 ea 05/24/21 10/20/23 Rx blood-glucose meter #1 ea 05/24/21 10/20/23 Rx aspirin 81 mg tablet,delayed 81 mg PO DAILY 06/14/21 11/13/23 History release lancets (Accu-Chek Softclix #100 ea 10/10/21 10/20/23 Rx Lancets) blood sugar diagnostic (Accu-Chek #300 ea 05/21/23 10/20/23 Rx Guide test strips) blood-glucose meter (Accu-Chek #1 ea 05/21/23 10/20/23 Rx Guide Glucose Meter) blood-glucose sensor ([employer] G7 #9 ea 05/21/23 10/20/23 Rx Sensor device) fluticasone propionate 50 See Rx Instructions .Route 05/21/23 11/13/23 History mcg/actuation nasal .COMPLEX PRN Congestion spray,suspension empagliflozin 25 mg tablet 25 mg PO DAILY 1 month #30 tabs 07/29/23 11/13/23 Rx (Jardiance) deucravacitinib 6 mg tablet 6 mg PO DAILY 08/12/23 11/13/23 History (Sotyktu) melatonin 10 mg tablet 10 mg PO HS PRN Insomnia 08/12/23 11/13/23 History atorvastatin 10 mg tablet (Lipitor) 10 mg PO DAILY #90 tabs 08/19/23 11/13/23 Rx glipizide 10 mg tablet, extended 10 mg PO BID #60 tabs
[2023-11-27] VITALS (12 sets, daily range): BP systolic 88–144; BP diastolic 51–103; PULSE 55–64; RESP 12–20; TEMP 36.1–36.4; O2SAT 98–100
[2023-11-27 10:39] LABS: Glucose Point of Care 114 mg/dl (65-105)
[2023-11-27] MEDS: LACTATED RINGERS 1,000 ML 30 ML IV CONT ×2 (10:50→15:24)
--- NOTE | 2023-11-27 11:04 | SUR.PREOP ---
1010-Pt states she hasn't sleep for days and have such sinus drainage and have had nausea and vomiting for 2 days Denies fever or covid exposure-states is because I need to have this sinus surgery Pt also reports she has taken DM medicines as documented and has only eaten jello for last 2 days. Pt has called nurse liason and left messages since last Friday reporting she feels so bad she did not want to come for testing and multiple reschedules for testing. 1035-Dr. Gregory aware of above and will initiate IV and bolus with 1 liter.
--- NOTE | 2023-11-27 11:12 | SUR.PREOP ---
1040-Pt aware Dr. Martinez delays self 15-30 . Late [id number] w/pt that she does want to continue with surgery today.
--- NOTE | 2023-11-27 11:19 | SUR.PREOP ---
1115-IV bolus continues-pt states I feel better .
--- NOTE | 2023-11-27 11:48 | WPDANESEPPF ---
Anes - Initial Pre Proc Eval Procedure: Operation Date: 11/27/23 12:00 Proposed Procedures p Revision Image Guided Left Side Maxillary Antrostomy, Left Total Ethmoidectomy, Left Sphenotomy, Left Frontal Sinusotomy - Antony Martinez MD Date/Time: 11/27/23 11:48 Surgeon: Antony Martinez MD Pre Op Diagnosis: chronic sinusitis Patient Data Age: 63 Gender: F Height: 1.59 m Weight: 73.5 kg Last Vital Signs Temp 36.4 C 11/27/23 10:14 Pulse 64 11/27/23 10:14 Resp 20 11/27/23 10:14 BP 121/77 11/27/23 10:14 Pulse Ox 100 11/27/23 10:14 O2 Del Method Room Air 11/27/23 10:14 Allergies Allergy/AdvReac Type Severity Reaction Status Date / Time No Known Allergies Allergy Verified 11/13/23 13:34 Home Medications Medication Instructions Recorded Confirmed Type blood sugar diagnostic #100 ea 05/24/21 10/20/23 Rx blood-glucose meter #1 ea 05/24/21 10/20/23 Rx aspirin 81 mg tablet,delayed 81 mg PO DAILY 06/14/21 11/27/23 History release lancets (Accu-Chek Softclix #100 ea 10/10/21 10/20/23 Rx Lancets) blood sugar diagnostic (Accu-Chek #300 ea 05/21/23 10/20/23 Rx Guide test strips) blood-glucose meter (Accu-Chek #1 ea 05/21/23 10/20/23 Rx Guide Glucose Meter) blood-glucose sensor ([employer] G7 #9 ea 05/21/23 10/20/23 Rx Sensor device) fluticasone propionate 50 See Rx Instructions .Route 05/21/23 11/13/23 History mcg/actuation nasal .COMPLEX PRN Congestion spray,suspension empagliflozin 25 mg tablet 25 mg PO DAILY 1 month #30 tabs 07/29/23 11/27/23 Rx (Jardiance) deucravacitinib 6 mg tablet 6 mg PO DAILY 08/12/23 11/27/23 History (Sotyktu) melatonin 10 mg tablet 10 mg PO HS PRN Insomnia 08/12/23 11/27/23 History atorvastatin 10 mg tablet (Lipitor) 10 mg PO DAILY #90 tabs 08/19/23 11/27/23 Rx glipizide 10 mg tablet, extended 10 mg PO BID #60 tabs 08/25/23 11/27/23 Rx release 24 hr meloxicam 7.5 mg tablet 7.5 mg PO DAILY #30 tabs 09/02/23 11/27/23 Rx oxycodone 5 mg tablet 5 mg PO QHS PRN pain #2 tabs 10/24/23 11/27/23 Rx bupropion HCl 300 mg 24 hr tablet, 300 mg PO QAM #90 tabs 11/04/23 11/13/23 Rx extended release (Wellbutrin XL) pantoprazole 40 mg tablet,delayed 40 mg PO QAM #90 tabs 11/05/23 11/27/23 Rx release amlodipine 5 mg tablet 5 mg PO QAM 11/13/23 11/27/23 History metformin 500 mg tablet,extended 1,000 mg PO BID 11/13/23 11/27/23 History release 24hr (osmotic) nadolol 20 mg tablet 40 mg PO QAM 11/13/23 11/27/23 History semaglutide 2 mg/dose (8 mg/3 mL) 2 mg (0.75 mL) subcut WEEKLY #3 mL 11/13/23 11/27/23 Rx subcutaneous pen injector (Ozempic) valsartan 160 1 tablet PO QAM 11/13/23 11/27/23 History mg-hydrochlorothiazide 12.5 mg tablet dextromethorphan 20 mg-quinidine 1 cap PO Q12H #60 caps 11/17/23 11/27/23 Rx 10 mg capsule (Nuedexta) doxycycline hyclate 100 mg capsule 100 mg PO BID #20 caps 11/21/23 11/21/23 Rx prednisone 10 mg tablet 10 mg PO .daily 7 days #7 tabs 11/21/23 11/21/23 Rx ondansetron 8 mg disintegrating 8 mg PO Q8H PRN nausea and 11/24/23 11/27/23 Rx tablet vomiting #15 tabs Laboratory Tests 11/27/23 10:26 POC Capillary Glucose 114 H mg/dl (65-105) Patient hx anesthesia problems: none Family hx anesthesia problems: none Results Review: All pre-operative results and documents have been reviewed as part of the pre-operative evaluation. [facility] Past Medical History Medical History Anxiety Depression Essential (primary) hypertension Fibromyalgia GERD without esophagitis Liver disease, chronic Major depressive disorder, single episode, unspecified Obesity, unspecified Polyosteoarthritis, unspecified Psoriasis Psoriatic arthritis Pure hypercholesterolemia Recurrent URI (upper respiratory infection) Seasonal allergies Type 2 diabetes mellitus without complication, without long-term current use of insulin Surgical History Surgical History
[2023-11-27] MEDS: MIDAZOLAM HCL (*CRX) 2 MG/2 ML VIAL IV PUSH (11:54)
[2023-11-27] MEDS: ACETAMINOPHEN 500 MG TABLET 1000 MG PO (11:54)
--- NOTE | 2023-11-27 12:16 | WPDHPUPDATE1 ---
History and Physical Update Update Date/Time: 11/27/23 12:16 History and Physical has been reviewed, including an updated exam of the patient. There are NO changes in the patient's condition. Risks, benefits, and alternatives have been discussed and questions answered. Patient agrees to proceed with procedure.
[2023-11-27] MEDS: ceFAZolin 2 GM/D5W 50 ML 2 GM/50 ML BAG IVPB (12:32)
[2023-11-27] MEDS: LIDO 1%/EPINEPHRINE 1:100,000 50 ML VIAL INFILTRATE (13:13)
--- NOTE | 2023-11-27 13:40 | SUR.OPER ---
Surgical Culture was taken from patient by and handed to Ashtyn florez. I, Myself, Sanjay Marina RN called DUSTIN Lyman to deliver specimen to pathology. The recipient of the pathological specimen was
[2023-11-27] MEDS: TOBRAMYCIN SULFATE 80 MG/2 ML VIAL 400 MG IRRIGATION ×2 (14:13→14:15)
[2023-11-27] MEDS: OXYMETAZOLINE HCL 0.05% NAS 15 ML BTL (*BKC) 1 SPRAY NASAL (14:17)
[2023-11-27 15:33] LABS: Glucose Point of Care 181 mg/dl (65-105)
--- NOTE | 2023-11-27 15:45 | W.PM.PROC2 ---
Procedure Note - Detailed Date of Procedure 11/27/23 Pre-op Diagnosis chronic sinusitis Post-op Diagnosis Same Procedure Performed Left left-sided image guided endoscopic maxillary antrostomy total ethmoidectomy sphenoidotomy frontal sinusotomy with propel stent placement Surgeon Antony Martinez MD Anesthesia General Indications see above Findings copious amounts of disease infected tissue copious amounts of purulence in the sphenoid and frontal. Description of Procedure Patient identified consent verified preop. Patient brought to the operating. Time-out performed. General anesthesia induced endotracheal tube secured airway. Patient prepped draped position procedure confirmed. Second time-out performed. Image guidance initiated confirmed less than 1 mm throughout. Afrin-soaked pledgets placed for 5 minutes on the left side than removed. 0 degree scope utilized. Entire case was performed under image guidance ethmoids performed with Kerrison microdebrider. Sphenoid performed with [place] Kerrison sphenoid punch frontals performed with PluggedInemann drill Kerrison draft instruments. The frontal outflow tracts which were 2 were drilled down to connect was widely patent propel stent was placed. Maxillary sinus was revised with backbiter straight through cut microdebrider 70 scope was utilized to ensure it connected. No injury to the anterior ethmoidal artery skull base orbit. Orbit was intact. Throughout the case was copiously irrigated with 2 L of sterile normal saline infused with 400 mg of tobramycin portal per L. bleeding was well controlled with intermittent application of Afrin-soaked pledgets and FloSeal. At the end we irrigated with 500 cc of sterile normal saline infused with tobramycin. Patient tolerated the procedure well. The purulence was also cultured prior to irrigation. Blood loss 100 cc. Propel stent placed in the frontal. Estimated Blood Loss 100 Drains No Packing No Pathology None sent Complications No immediate complications Condition Stable Disposition PACU [facility] Billing Surgery - Charge Forward: Surgery Billing
[2023-11-27] MEDS: ONDANSETRON INJ 4 MG/2 ML VIAL IV PUSH (15:57)
[2023-11-27] MEDS: diphenhydrAMINE HCl INJ 50 MG/ML VIAL 25 MG IV PUSH (16:32)
[2023-11-27] MEDS: SCOPOLAMINE 1 MG PATCH 1 PATCH TRANSDERM (16:34)
[2023-11-27] MEDS: oxyCODONE (*CRX) 5 MG/5 ML ORAL SOLN IR PO (17:17)
== END 2023-11-27 17:47 | disposition home or self-care (01) ==
PROVIDERS: PCP Family Medicine; Visit Provider Otolaryngology
PROC: (CPT 31256; principal; 2023-11-27 12:00)
DX: J01.90 Acute sinusitis, unspecified (principal); J34.89 Other specified disorders of nose and nasal sinuses; I10 Essential (primary) hypertension; E11.9 Type 2 diabetes mellitus without complications; K21.9 Gastro-esophageal reflux disease without esophagitis; E78.00 Pure hypercholesterolemia, unspecified; F41.9 Anxiety disorder, unspecified; F32.A Depression, unspecified; K76.9 Liver disease, unspecified; F32.9 Major depressive disorder, single episode, unspecified; F12.90 Cannabis use, unspecified, uncomplicated; J30.2 Other seasonal allergic rhinitis; Z98.890 Other specified postprocedural states; Z79.82 Long term (current) use of aspirin; Z79.84 Long term (current) use of oral hypoglycemic drugs; Z79.891 Long term (current) use of opiate analgesic; Z79.85 Long-term (current) use of injectable non-insulin antidiabetic drugs; Z79.52 Long term (current) use of systemic steroids; Z82.49 Family history of ischemic heart disease and other diseases of the circulatory system
CPT/HCPCS: 31256; 31287; 31253; 61782; 82948; 87070; 87075; 87205; A9270; C2625; J0690; J1100; J1200; J2250; J2405; J2704; J3010; J3260; J7120

== ENCOUNTER 2023-12-13 13:41 | Emergency (ER) | payer OTHER, MEDICARE, SELFPAY ==
[2023-12-13] VITALS (34 sets, daily range): BP systolic 127–159; BP diastolic 74–93; PULSE 61–70; RESP 12–25; TEMP 36–36.7; O2SAT 96–100
--- NOTE | ~2023-12-13 | XR_ITS ---
EXAMINATION: XR chest 1V portable DATE: 12/13/2023 14:43 INDICATION: Cough. Dyspnea. TECHNIQUE: A single frontal view of the chest was obtained. COMPARISON: Chest 2 views 01/14/2015 FINDINGS: There is mild atelectasis in right middle lower lung zones. No pleural effusion or pneumoth orax. The heart size is normal. IMPRESSION: 1. Mild atelectasis in right mid and lower lung zones. Reviewed, dictated and finalized at location E. ACUTE
--- NOTE | ~2023-12-13 | CT_ITS ---
EXAMINATION: CTA chest PE protocol DATE: 12/13/2023 14:55 INDICATION: Dyspnea. Recent surgery. TECHNIQUE: Computed tomography angiography (CTA) of the chest was performed with 100 mL Omnipaque-350 intravenous contrast timed to evaluate the pulmonary arteries. Coronal maximum intensity projection 3D-reconstructions were created by the technologist. Automated exposure control and iterative reconst ruction technique were employed. The dose-length product was 462.73 mGy-cm. COMPARISON: Chest CT 06/03/2018 FINDINGS: The lungs demonstrate mild atelectasis. No pleural effusion. The heart size is normal. No p ericardial effusion. There are changes of cholecystectomy. There is liver surface nodularity, consist ent with cirrhosis. There is mild thoracic spondylosis. IMPRESSION: 1. No pulmonary embolus. 2. Cirrhosis of the liver. Reviewed, dictated and finalized at location E. [facility] [employer]
--- NOTE | 2023-12-13 13:54 | ED.GENADULT ---
HPI - General Adult General Chief complaint: Shortness of Breath/Dyspnea Stated complaint: sob Time Seen by Provider: 12/13/23 13:48 Source: patient Mode of arrival: ambulatory Limitations: no limitations History of Present Illness HPI narrative: This is a 63-year-old female with history of DM, HTN, chronic sinusitis s/p sinus surgery 2 weeks ago who presents to the ED for chief complaint of shortness of breath. Reports she has felt very generally weak since surgery and that ?everything is getting worse? since the surgery. When I asked her to elaborate on everything she says ?I don't know. ? When asked about a cough she again tells me she does not know. She then goes on to tell me that she has been having a cough every night. Denies hemoptysis. Overall patient is a poor historian. Intermittently a arrives in tears during the history taking. Unable to tell me if she has had fevers or chills. Endorses nausea and poor appetite over the last couple of weeks. Denies chest pain, leg swelling. Related Data Home Medications Medication Instructions Recorded Confirmed aspirin 81 mg tablet,delayed 81 mg PO DAILY 06/14/21 12/08/23 release deucravacitinib 6 mg tablet 6 mg PO DAILY 08/12/23 12/08/23 (Sotyktu) melatonin 10 mg tablet 10 mg PO HS PRN Insomnia 08/12/23 12/08/23 amlodipine 5 mg tablet 5 mg PO QAM 11/13/23 12/08/23 metformin 500 mg tablet,extended 1,000 mg PO BID 11/13/23 12/08/23 release 24hr (osmotic) nadolol 20 mg tablet 40 mg PO QAM 11/13/23 12/08/23 valsartan 160 1 tablet PO QAM 11/13/23 12/08/23 mg-hydrochlorothiazide 12.5 mg tablet Allergies Allergy/AdvReac Type Severity Reaction Status Date / Time No Known Allergies Allergy Verified 12/08/23 16:07 Review of Systems Review of Systems: All systems as dictated in [facility] Past Medical History Medical History Anxiety Depression Essential (primary) hypertension Fibromyalgia GERD without esophagitis Liver disease, chronic Major depressive disorder, single episode, unspecified Obesity, unspecified Polyosteoarthritis, unspecified Psoriasis Psoriatic arthritis Pure hypercholesterolemia Recurrent URI (upper respiratory infection) Seasonal allergies Type 2 diabetes mellitus without complication, without long-term current use of insulin Surgical History Surgical History History of section (~1999) History of hernia surgery (Unknown) History of hysterectomy (Unknown) History of ovarian cystectomy chocolate cyst Family History Family History Mother Family history of chronic obstructive pulmonary disease Hypertension Depression Father No problems noted. Grandparent Diabetes mellitus Family history of alcoholism Acute myocardial infarction Depression Heart disease Hypertension Sibling Diabetes mellitus Depression Hypertension Other Cerebrovascular accident neice-drug induced Depression aunt Hypertension aunt Other Family history of arthritis Family history of heart disease in male family member before age 55 Social History Social History Smoking status: Never smoker Tobacco type: cigarettes Second hand tobacco smoke exposure: Yes Alcohol intake: current Drinks per week: 4 Alcohol use details: consumes beer socially Substance use: current Substance use type: marijuana Other substance usage details: OCCASSIONALLY SMOKES MARIJUANA FOR PAIN RELIEF Lack of Transportation: YES Lack of Food: Never True Current Housing: I Have Housing Concerned About Future Housing: No Difficulty Paying Gas/Electric Bills: Decline to Answer Difficulty Paying for Meds: No Currently Unemployed: No Education: High School Diploma/GED
--- NOTE | 2023-12-13 13:55 | ECG_ITS ---
Measurements Intervals [place] Rate: 66 P: 22 NM: 235 QRS: -28 QRSD: 88 T: 8 QT: 393 QTc: 412 Interpretive Statements SINUS RHYTHM WITH FIRST DEGREE AV BLOCK POOR R WAVE PROGRESSION, ANTERIOR LEADS BORDERLINE T WAVE ABNORMALITY- ANT/INF LEADS BASELINE ARTIFACT- I, II, III, AVL, AVF BORDERLINE ECG COMPARED TO ECG 08/14/2023 12:49:59 NO SIGNIFICANT CHANGES Electronically Signed On 12-13-2023 14:26:41 INDUSTRIAL HYGIENE TECHNICIAN by Geoff Bishop D.O.
[2023-12-13 14:15] LABS: Basophils Percent Auto 0.5 % (0.2-1.2); Eosinophils Absolute Auto 0.1 K/mm3 (0-0.3); Eosinophils Percent Auto 1.4 % (0-4.4); Hematocrit 42.1 % (37.0-47.0); Hemoglobin 15.2 g/dL (12.0-15.0); Immature Granulocyte Absolute 0.02 K/mm3 (0.00-0.031); Immature Granulocyte Percent A 0.2 % (0-0.5); Lymphocytes Absolute Auto 2.55 K/mm3 (0.9-3.2); Lymphocytes Percent Auto 29.9 % (18.3-44.2); Mean Corpuscular HGB Conc 36.1 g/dl (32-36); Mean Corpuscular Hemoglobin 31.8 pg (26-34); Mean Corpuscular Volume 88.1 fl (80-100); Mean Platelet Volume 9.7 fl (7.4-10.4); Monocytes Absolute Auto 0.8 K/mm3 (0.1-0.6); Monocytes Percent Auto 8.8 % (2.6-8.5); Neutrophils Absolute Auto 5.1 K/mm3 (1.3-6.7); Neutrophils Percent Auto 59.2 % (45.5-73.1); Platelet Count Result 230 k/mm3 (150-375); Red Blood Count 4.78 M/mm3 (4.2-5.4); Red Cell Distribution Width 13.1 % (11.5-14.5); White Blood Count 8.5 K/mm3 (4.5-10.0)
[2023-12-13 14:25] LABS: Lactic Acid Reflex 3.1 mmol/L (0.7-2.0)
[2023-12-13 14:30] LABS: Alanine Aminotransferase 15 U/L (6-35); Albumin Level 4.3 g/dL (3.5-5.1); Alkaline Phosphatase 84 U/L (38-126); Anion Gap 9 mmol/L (8-16); Aspartate Amino Transferase 33 U/L (14-36); Blood Urea Nitrogen 10 mg/dL (7-17); Calcium 9.7 mg/dL (8.4-10.2); Carbon Dioxide 26 mmol/L (22-30); Chloride 97 mmol/L (98-107); Estimated CRCL calculation 61 ml/min; Estimated Glomerular Filt Rate > 60; Glucose 117 mg/dL (65-110); Potassium 4.1 mmol/L (3.4-5.0); Sodium 132 mmol/L (137-145)
[2023-12-13 14:36] LABS: NT Pro B Type Natriuretic Pept 149 pg/mL (19.9-100)
[2023-12-13] MEDS: SODIUM CHLORIDE 0.9% IV 1,000 ML 999 ML IV CONT ×2 (14:37→15:25)
[2023-12-13 14:38] LABS: Troponin I < 0.012 ng/mL (0.000-0.034)
[2023-12-13 14:42] LABS: Appearance Urine Clear (Clear); Bilirubin Urine Negative (Negative); Blood Urine Negative (Negative); Color Urine Yellow (Yellow); Glucose Urine UA 3+ mg/dL (Negative); Ketones Urine Negative (Negative); Leukocyte Esterase Ur Negative LEU/UL (Negative); Nitrate Urine Negative (Negative); Protein Urine Negative (Negative); Specific Grav Ur 1.007 (1.001-1.035); Urobilinogen Urine 0.2 mg/dL (<2.0); pH Urine 7.5 (5.0-9.0)
[2023-12-13 15:02] LABS: Influenza A QL RT-PCR Negative (Negative); Influenza B QL RT-PCR Negative (Negative); RSV RNA, RT-PCR Negative (Negative); SARS-CoV-2 RNA PCR Negative (Negative)
[2023-12-13 15:12] LABS: Add Urine Microscopic? NO
[2023-12-13] MEDS: ONDANSETRON INJ 4 MG/2 ML VIAL IV PUSH (15:25)
[2023-12-13 17:18] LABS: Reflex Lactic Acid Yes or No Add Lactic
[2023-12-13 17:30] LABS: Lactic Acid Reflex 2.5 mmol/L (0.7-2.0)
== END 2023-12-13 17:57 | disposition home or self-care (01) ==
PROVIDERS: Emergency Provider Physician Assistant; PCP Family Medicine
DX: R53.81 Other malaise (principal); R53.83 Other fatigue; E11.9 Type 2 diabetes mellitus without complications; I10 Essential (primary) hypertension; Z20.822 Contact with and (suspected) exposure to COVID-19
CPT/HCPCS: 36415; 71045; 71275; 80053; 81003; 83605; 83880; 84484; 85025; 87637; 93005; 96361; 96374; 99284; J2405; J7030; Q9967

== ENCOUNTER 2024-04-27 11:27 | Emergency (ER) | payer OTHER, MEDICARE, SELFPAY ==
--- NOTE | ~2024-04-27 | CT_ITS ---
EXAMINATION: CT abdomen pelvis w con DATE: 04/27/2024 14:35 INDICATION: Suspicion. Abdominal discomfort and distention. TECHNIQUE: Computed tomography (CT) of the abdomen and pelvis was performed with 100 mL Omnipaque-350 intravenous contrast. Automated exposure control and iterative reconstruction technique were employe d. The dose-length product was 777.84 mGy-cm. COMPARISON: CT studies dated 09/14/2010 and 06/03/2018 FINDINGS: Mild bibasilar dependent atelectasis. Heart size is normal. No pericardial or pleural effusion. Focal hepatic steatosis at the ligamentum teres. Mild intra and extra hepatic biliary ductal dilation whic h is within normal limits post cholecystectomy with surgical clips the gallbladder fossa. Spleen, hendrickson creas, bilateral adrenal glands and kidneys are normal. No bowel obstruction. The appendix is not vis ualized. No pericecal inflammatory change to suggest acute appendicitis. There is been continued incr ease in size of a likely complex fluid collection with greater than simple fluid attenuation and some coarse calcifications located within the midline anterior abdominal wall loculated along the superfi cial margin of a likely ventral hernia mesh repair. The collection measures 13.2 cm craniocaudally an d 6.8 x 5.7 cm in maximal transaxial dimensions. No surrounding inflammatory stranding to suggest inf ection/abscess although blood could potentially account for the increased density. Differential would also include endometrioma. Bladder is normal. The uterus is not identified and has likely been surgi irais resected. No free intraperitoneal gas or fluid. No pathologically enlarged abdominal or pelvic lymphadenopathy. Mild lumbar and lower thoracic spondylosis. IMPRESSION: 1. Continued increase in size of a chronic likely loculated complex fluid collection along the superf icial margin of the mass of a likely prior ventral hernia repair as detailed above, now measuring 13. 2 x 6.8 x 5.7 cm. Reviewed, dictated and finalized at location A. IMPRESSION: 1. Continued increase in size of a chronic likely loculated complex fluid colle ction along the superficial margin of the mass of a likely prior ventral hernia repair as detailed above, now measuring 13.2 x 6.8 x 5.7 cm.
[2024-04-27 12:02] VITALS: BP 130/99; PULSE 65; RESP 15; O2SAT 98
[2024-04-27 12:15] LABS: Basophils Absolute Auto 0.1 K/mm3 (0.0-0.1); Eosinophils Absolute Auto 0.1 K/mm3 (0-0.3); Eosinophils Percent Auto 2.3 % (0-4.4); Hematocrit 40.8 % (37.0-47.0); Hemoglobin 13.7 g/dL (12.0-15.0); Immature Granulocyte Absolute 0.01 K/mm3 (0.00-0.031); Immature Granulocyte Percent A 0.2 % (0-0.5); Lymphocytes Absolute Auto 1.74 K/mm3 (0.9-3.2); Lymphocytes Percent Auto 30.2 % (18.3-44.2); Mean Corpuscular HGB Conc 33.6 g/dl (32-36); Mean Corpuscular Hemoglobin 31.2 pg (26-34); Mean Corpuscular Volume 92.9 fl (80-100); Monocytes Absolute Auto 0.7 K/mm3 (0.1-0.6); Monocytes Percent Auto 11.6 % (2.6-8.5); Neutrophils Absolute Auto 3.2 K/mm3 (1.3-6.7); Neutrophils Percent Auto 54.7 % (45.5-73.1); Platelet Count Result 223 k/mm3 (150-375); Red Blood Count 4.39 M/mm3 (4.2-5.4); Red Cell Distribution Width 13.7 % (11.5-14.5); White Blood Count 5.8 K/mm3 (4.5-10.0)
[2024-04-27 12:32] LABS: Alanine Aminotransferase 11 U/L (6-35); Albumin Level 4.2 g/dL (3.5-5.1); Alkaline Phosphatase 83 U/L (38-126); Anion Gap 13 mmol/L (4-12); Aspartate Amino Transferase 29 U/L (14-36); Bilirubin,Total 0.7 mg/dL (0.2-1.3); Blood Urea Nitrogen 13 mg/dL (7-17); Calcium 8.8 mg/dL (8.4-10.2); Carbon Dioxide 27 mmol/L (22-30); Chloride 99 mmol/L (98-107); Estimated CRCL calculation 68 ml/min; Estimated Glomerular Filt Rate > 60; Glucose 131 mg/dL (65-110); Lipase 165 U/L (23-300); Potassium 3.9 mmol/L (3.4-5.0); Sodium 139 mmol/L (137-145)
[2024-04-27 12:43] LABS: Appearance Urine Clear (Clear); Bacteria Urine None Seen /hpf; Bilirubin Urine Negative (Negative); Blood Urine Non-Hemolyzed Trace (Negative); Color Urine Yellow (Yellow); Glucose Urine UA Negative (Negative); Ketones Urine Negative (Negative); Leukocyte Esterase Ur Trace LEU/UL (Negative); Need Manual Microscopic Reviewed; Nitrate Urine Negative (Negative); Non Pathogenic Casts 0-2; Protein Urine Trace mg/dL (Negative); Specific Grav Ur 1.023 (1.001-1.035); Squamous Epithelial Cell Urine Moderate /hpf (Few); pH Urine 5.5 (5.0-9.0)
[2024-04-27 12:45] LABS: Add Urine Microscopic? YES
--- NOTE | 2024-04-27 14:13 | ED.ABDPAIN ---
HPI - Abdominal Pain General Chief Complaint: Abdominal Pain Stated Complaint: abdominal distention Time Seen by Provider: 04/27/24 12:49 History of Present Illness HPI narrative: 63-year-old female with history of hypertension, hyperlipidemia, diabetes presenting with abdominal distension. Patient states that she has not had a bowel movement for several weeks. States that her abdomen has been distending especially over the last few days. She has had some intermittent nausea with some decreased appetite but no vomiting. States that she has not passed gas for 2 days. Complains of abdominal discomfort but not outright pain. No dysuria or hematuria. No further complaints. Related Data Home Medications Medication Instructions Recorded Confirmed aspirin 81 mg tablet,delayed 81 mg PO DAILY 06/14/21 04/05/24 release melatonin 10 mg tablet 10 mg PO HS PRN Insomnia 08/12/23 04/05/24 amlodipine 5 mg tablet 5 mg PO QAM 11/13/23 04/05/24 metformin 500 mg tablet,extended 1,000 mg PO BID 11/13/23 04/05/24 release 24hr (osmotic) nadolol 20 mg tablet 40 mg PO QAM 11/13/23 04/05/24 valsartan 160 1 tablet PO QAM 11/13/23 04/05/24 mg-hydrochlorothiazide 12.5 mg tablet Allergies Allergy/AdvReac Type Severity Reaction Status Date / Time No Known Allergies Allergy Verified 04/05/24 13:41 Review of Systems Review of Systems: All systems reviewed & are unremarkable except as noted in HPI and below PMFSH Past Medical History Medical History Anxiety Depression Essential (primary) hypertension Fibromyalgia GERD without esophagitis Liver disease, chronic Major depressive disorder, single episode, unspecified Obesity, unspecified Polyosteoarthritis, unspecified Psoriasis Psoriatic arthritis Pure hypercholesterolemia Recurrent URI (upper respiratory infection) Seasonal allergies Type 2 diabetes mellitus without complication, without long-term current use of insulin Surgical History Surgical History History of section (~1999) History of hernia surgery (Unknown) History of hysterectomy (Unknown) History of ovarian cystectomy chocolate cyst Family History Family History Mother Family history of chronic obstructive pulmonary disease Hypertension Depression Father No problems noted. Grandparent Diabetes mellitus Family history of alcoholism Acute myocardial infarction Depression Heart disease Hypertension Sibling Diabetes mellitus Depression Hypertension Other Cerebrovascular accident neice-drug induced Depression aunt Hypertension aunt Other Family history of arthritis Family history of heart disease in male family member before age 55 Social History Social History Smoking status: Never smoker Tobacco type: cigarettes Second hand tobacco smoke exposure: Yes Alcohol intake: current Drinks per week: 4 Alcohol use details: consumes beer socially Substance use: current Substance use type: marijuana Other substance usage details: OCCASSIONALLY SMOKES MARIJUANA FOR PAIN RELIEF Lack of Transportation: YES Lack of Food: Never True Current Housing: I Have Housing Concerned About Future Housing: No Difficulty Paying Gas/Electric Bills: Decline to Answer Difficulty Paying for Meds: No Currently Unemployed: No Education: High School Diploma/GED Difficulty w/ Childcare or Family Care: No Living arrangements: with family Additional living arrangements comments: [place] Occupation/Education: other 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
[2024-04-27 14:16] VITALS: BP 143/86; PULSE 68; RESP 13; O2SAT 100
[2024-04-27] MEDS: SODIUM CHLORIDE 0.9% IV 1,000 ML 999 ML IV CONT (14:41)
[2024-04-27 15:01] VITALS: BP 115/94; PULSE 72; RESP 14; O2SAT 100
== END 2024-04-27 16:43 | disposition home or self-care (01) ==
PROVIDERS: Student in an Organized Health Care Education/Training Program; Emergency Provider Emergency Medicine; PCP Family Medicine
DX: K59.00 Constipation, unspecified (principal); K43.9 Ventral hernia without obstruction or gangrene; E78.5 Hyperlipidemia, unspecified; I10 Essential (primary) hypertension; E11.9 Type 2 diabetes mellitus without complications; Z79.84 Long term (current) use of oral hypoglycemic drugs; Z79.899 Other long term (current) drug therapy; Z79.82 Long term (current) use of aspirin
CPT/HCPCS: 36415; 74177; 80053; 81001; 83690; 85025; 87086; 87088; 96360; 99284; J7030; Q9967

== ENCOUNTER 2024-05-06 19:31 | Outpatient (NON) | payer OTHER, MEDICARE, SELFPAY | END 2024-05-06 19:32 | disposition home or self-care (01) | LOC: ANHOBOP 19:38 | PROVIDERS: PCP Family Medicine; Visit Provider Otolaryngology | DX: J34.89 Other specified disorders of nose and nasal sinuses (principal); J01.90 Acute sinusitis, unspecified | CPT/HCPCS: 87070; 87075; 87077; 87181; 87205 ==

== ENCOUNTER 2024-07-13 08:27 | Outpatient (CLI) | payer OTHER, MEDICARE, SELFPAY ==
--- NOTE | ~2024-07-13 | NM_ITS ---
EXAMINATION: NM kera stress w perfusion DATE: 07/13/2024 12:11 CDT INDICATION: Chest pain TECHNIQUE: Rest images were obtained following intravenous administration of 10.5 mCi Tc99m tetrofosm in (Myoview). The patient was infused intravenously with Lexiscan (regadenoson). Then, 34.3 mCi Tc99m tetrofosmin (Myoview) was administered intravenously, and stress images were obtained. Data was jinny nstructed into short axis and horizontal and vertical long axis SPECT images. Gated SPECT images were also obtained. COMPARISON: None. FINDINGS: There is no definite reversible or fixed perfusion abnormality to suggest ischemia or infar ction. There is no segmental wall motion abnormality. Left ventricular ejection fraction measures 7 4%. IMPRESSION: 1. No definite ischemia or infarct. 2. Normal left ventricular ejection fraction measuring 74%. Reviewed, dictated and finalized at location B.
--- NOTE | 2024-07-13 08:36 | ECHO_ITS ---
Patient Info Name: Eva Bergman Age: 63 years : 1960 Gender: Female Ht: 63 in Wt: 170 lbs BSA: 1.88 m2 HR: 63 bpm BP: 136 / 81 mmHg Technical Quality: Poor, Fair Exam Date: 07/13/2024 8:55 AM Exam Location: Echo Lab Patient Status: Outpatient Admit Date: 07/13/2024 Staff Ordering Physician: Geoff Bishop DO Autism Motor Specialist: Avis Strange RDCS Attending Provider: Geoff Bishop DO Referring Physician: Dario VILLALOBOS; Exam Type: CA echo dop color flow w con Study Info Indications R06.09 - Other forms of dyspnea Complete two-dimensional, color flow and Doppler transthoracic echocardiogram is performed with contrast to opacify the left ventricle and to improve the deliniation of the left ventricle endocardial borders. Contrast/Agitated Saline Contrast/Ag. Saline: Definity Amount: 3.00 ml Administered By: Avis Strange RDCS New IV Access: Antecubital Space and Left Reason for Poor Study: poor echocardiographic windows Summary 1. Definity contrast administered improved wall motion interpretation. 2. Left ventricular chamber dimension is normal. 3. Left ventricular systolic function is normal, estimated at 65-70%. 4. The left ventricular diastolic function is grade I diastolic dysfunction. 5. E/e' 12 is mildly elevated. 6. There is mild aortic valve sclerosis. 7. No pulmonary hypertension, estimated pulmonary arterial systolic pressure is 24 mmHg. Left Ventricle E/e' 12 is mildly elevated. Definity contrast administered improved wall motion interpretation. Left ventricular chamber dimension is normal. Left ventricular systolic function is normal, estimated at 65-70%. The left ventricular diastolic function is grade I diastolic dysfunction. Right Ventricle Right ventricular chamber dimension is normal. Right ventricular systolic function is normal. Left Atria Left atrial chamber dimension is normal. Right Atria Right atrial chamber dimension is normal. Aortic Valve The aortic valve is trileaflet. There is mild aortic valve sclerosis. There is no aortic valve stenosis. There is no aortic valve regurgitation. Pulmonic Valve There is no pulmonic regurgitation. Mitral Valve There is no mitral valve stenosis. There is no mitral valve regurgitation. Tricuspid Valve There is no tricuspid valve regurgitation. No pulmonary hypertension, estimated pulmonary arterial systolic pressure is 24 mmHg. Pericardium/Pleural There is no pericardial effusion. Inferior Vena Cava Normal inferior vena cava with >50% collapse upon inspiration consistent with normal right atrial pressure, 5 mmHg. Aorta The aortic root size at the sinus of Valsalva is normal. Left Ventricular Outflow Tract Name Value Normal LVOT 2D LVOT Diameter 1.88 cm LVOT Doppler LVOT Peak Gradient 5 mmHg LVOT Mean Gradient 3 mmHg LVOT VTI 25.27 cm LVOT VTI/AV VTI Ratio 0.99 LVOT Stroke Volume 70.06 ml LVOT CO 4.29 l/min LVOT CI 2.29 L/min/m2 Pulmonic Valve
--- NOTE | 2024-07-13 08:36 | EST_ITS ---
Patient Info Name: Eva Bergman Age: 63 years : 1960 Gender: Female Ht: 63 in Wt: 170 lbs BSA: 1.88 m2 HR: 63 bpm BP: 135 / 78 mmHg Heart Rhythm: Sinus Rhythm Exam Date: 07/13/2024 10:35 AM Exam Location: Echo Lab Patient Status: Outpatient Admit Date: 07/13/2024 Staff Ordering Physician: Geoff Bishop DO Attending Provider: Geoff Bishop DO Exercise Technologist: Karen Moulton CT Exam Type: CA stress kera w NM Study Info Indications R06.09 - Other forms of dyspnea A regadenoson stress test was performed. Summary 1. 1. Negative lexiscan stress test for ischemic ST changes by ECG criteria. 2. 2. Stable hemodynamics throughout the test. 3. 3. Nuclear scan to follow and will be reported separately. Please correlate with it. 4. 4. Patient informed of the above results. Protocol: Lexiscan Stress ECG Details Stage: REST Duration (min): 2 min : 30 sec HR (bpm): 63 SBP (mmHg): 135 DBP (mmHg): 78 Stage: REST Duration (min): 7 min : 31 sec HR (bpm): 62 SBP (mmHg): 135 DBP (mmHg): 78 Stage: STAGE 1 Duration (min): 1 min : 0 sec HR (bpm): 71 SBP (mmHg): 139 DBP (mmHg): 77 Stage: RECOVERY Duration (min): 1 min : 0 sec HR (bpm): 69 SBP (mmHg): 139 DBP (mmHg): 77 Stage: RECOVERY Duration (min): 2 min : 0 sec HR (bpm): 67 SBP (mmHg): 139 DBP (mmHg): 77 Stage: RECOVERY Duration (min): 3 min : 0 sec HR (bpm): 67 SBP (mmHg): 132 DBP (mmHg): 75 Stage: RECOVERY Duration (min): 4 min : 0 sec HR (bpm): 68 SBP (mmHg): 132 DBP (mmHg): 75 Stage: RECOVERY Duration (min): 5 min : 0 sec HR (bpm): 67 SBP (mmHg): 128 DBP (mmHg): 75 Stage: RECOVERY Duration (min): 6 min : 0 sec HR (bpm): 67 SBP (mmHg): 128 DBP (mmHg): 75 Stage: RECOVERY Duration (min): 7 min : 0 sec HR (bpm): 67 SBP (mmHg): 130 DBP (mmHg): 75 Stage: RECOVERY Duration (min): 7 min : 46 sec HR (bpm): 67 SBP (mmHg): 130 DBP (mmHg): 75 Rest HR: 62 bpm Peak HR: 73 bpm Rest Sys BP: 135 mmHg Peak Sys BP: 139 mmHg Max Pred HR: 155 bpm % Max Pred HR: 47 % Target HR: 132 bpm Max RPP: 10,147 bpm*mmHg Termination Reason: Completed protocol Cardiac Symptoms: Shortness of breath Total Time: 1 min : 0 sec Rest Dodge BP: 78 mmHg Peak Dodge BP: 77 mmHg Total Dose: 0.4 mg Resting ECG Sinus rhythm. Stress ECG No ST changes. Arrhythmias None. Report Signatures
[2024-07-13] MEDS: PERFLUTREN LIPID MICROSPHERES 1.5 ML VIAL DILUTED TO 10 ML TOTAL VOLUME IV PUSH (09:50)
--- NOTE | 2024-07-13 10:12 | IVDEFINITY ---
Prior to administration of IV Definity the patient was educated on the risks and benefits of the imaging enhancing agent including potential adverse side effects. The patient verbalized understanding. Allergies were verified. No exclusion criteria were identified and at least one of the following inclusion criteria were met: 1) physician request, 2) patient technically difficult to image (per the [place] Society of Echocardiography guidelines of two or more segments not discernable within the apical view), or 3) questionable left ventricular function. ?
== END 2024-07-13 08:28 | disposition home or self-care (01) ==
PROVIDERS: PCP Family Medicine; Visit Provider Internal Medicine Cardiovascular Disease
DX: R07.9 Chest pain, unspecified (principal); R06.09 Other forms of dyspnea
CPT/HCPCS: 78452; 93017; A9502; C8929; J2785; Q9957

== ENCOUNTER 2024-12-29 17:00 | Outpatient (CLI) | payer OTHER, MEDICARE, SELFPAY ==
--- OUTSIDE RECORDS SUMMARY | 2024-12-29 17:22 | XMS_ITS | Encounter Summary ---
Author Organization [facility] Address 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
--- OUTSIDE RECORDS SUMMARY | 2024-12-29 17:22 | XMS_ITS | Encounter Summary ---
Author Organization [facility] Address [address] [place] [address] Care Team Providers Care Reliability Technicians Name Role Phone Unavailable Primary Care Provider Unavailabl e Encounter Details Date Type Department Care Team (Late st Contact Info) Description 01/25/1999 Outpatient Historical HIS MD Ld VO Jorge A, MD [address] [facility] [address] [place] [address] Social History Tobacco Use Types Packs/Day Years Used Date Smoking Tobacco: Never Assessed Comments Unknown Sex and Gender Information Value Date Recorded Sex Assigned at Not on file Legal Sex Female 4:27 AM DATA CONTROL CLERK Gender Identity Not on file Sexual Orientation Not on file documented as of this encounter Plan of Treatment Not on file documented as of this encounter Visit Diagnoses Not on filedocumented in this encounter
--- OUTSIDE RECORDS SUMMARY | 2024-12-29 17:22 | XMS_ITS | Encounter Summary ---
Author Organization [facility] Address [address] [place] [address] Care Team Providers Care Ramp Boss Name Role Phone Unavailable Primary Care Provider Unavailabl e Encounter Details Date Type Department Care Team (Late st Contact Info) Description 02/13/1999 Outpatient Historical HIS MD Ld VO Jorge A, MD [address] [facility] [address] [place] [address] Social History Tobacco Use Types Packs/Day Years Used Date Smoking Tobacco: Never Assessed Comments Unknown Sex and Gender Information Value Date Recorded Sex Assigned at Not on file Legal Sex Female 4:27 AM JUKE BOX SERVICER Gender Identity Not on file Sexual Orientation Not on file documented as of this encounter Plan of Treatment Not on file documented as of this encounter Visit Diagnoses Not on filedocumented in this encounter
--- OUTSIDE RECORDS SUMMARY | 2024-12-29 17:22 | XMS_ITS | Encounter Summary ---
Author Organization [facility] Address [address] [place] [address] Care Team Providers Care Polarity Tester Name Role Phone Unavailable Primary Care Provider Unavailabl e Encounter Details Date Type Department Care Team (Late st Contact Info) Description 02/24/1999 Outpatient Historical HIS MD Ld VO Jorge A, MD [address] [facility] [address] [place] [address] Social History Tobacco Use Types Packs/Day Years Used Date Smoking Tobacco: Never Assessed Comments Unknown Sex and Gender Information Value Date Recorded Sex Assigned at Not on file Legal Sex Female 4:27 AM ISOTOPE TECHNICIAN Gender Identity Not on file Sexual Orientation Not on file documented as of this encounter Plan of Treatment Not on file documented as of this encounter Visit Diagnoses Not on filedocumented in this encounter
--- OUTSIDE RECORDS SUMMARY | 2024-12-29 17:22 | XMS_ITS | Encounter Summary ---
Author Organization [facility] Address 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
--- OUTSIDE RECORDS SUMMARY | 2024-12-29 17:22 | XMS_ITS | Encounter Summary ---
Author Organization [facility] Address [address] [place] [address] Care Team Providers Care Epic Interface Analyst Name Role Phone Unavailable Primary Care Provider Unavailabl e Encounter Details Date Type Department Care Team (Late st Contact Info) Description 02/28/1999 Outpatient Historical HIS MD Ld VO Jorge A, MD [address] [facility] [address] [place] [address] Social History Tobacco Use Types Packs/Day Years Used Date Smoking Tobacco: Never Assessed Comments Unknown Sex and Gender Information Value Date Recorded Sex Assigned at Not on file Legal Sex Female 4:27 AM MEDICATION MANAGER Gender Identity Not on file Sexual Orientation Not on file documented as of this encounter Plan of Treatment Not on file documented as of this encounter Visit Diagnoses Not on filedocumented in this encounter
--- OUTSIDE RECORDS SUMMARY | 2024-12-29 17:22 | XMS_ITS | Clinical Summary ---
Author Organization [facility] Address [address] Rodriguez: Epic Prelude ADT [place] [address] Care Team Providers Care Real Estate Valuer Name Role Phone Unavailable Primary Care Provider Unavailabl e Social History Tobacco Use Types Packs/Day Years Used Date Smoking Tobacco: Never Assessed Comments Unknown Sex and Gender Information Value Date Recorded Sex Assigned at Not on file Legal Sex Female 4:27 AM ACCOUNTING ANALYST Gender Identity Not on file Sexual Orientation Not on file Plan of Treatment Health Maintenance Due Date Last Done Comments DTAP/TDAP/TD VACCINES (1 - Tdap) 1977 BREAST CANCER SCREENING 1998 COLORECTAL SCREENING 2003 Colorectal Cancer Screening 2003 FIT-DNA Q 3 years 2003 FIT/FOBT Q 1 year 2003 Flex Sig/CT Colonography Q 5 years 2003 PNEUMOCOCCAL VACCINE 50+ YEARS (1 of 1 - PCV) 10/03/20 08 ZOSTER VACCINE (1 of 2) 2008 OSTEOPOROSIS SCREENING 2023 INFLUENZA VACCINE (#1) 2024 RSV VACCINE (60+ or ) (1 - 1-dose 75+ series) 2033
--- OUTSIDE RECORDS SUMMARY | 2024-12-29 17:22 | XMS_ITS | Encounter Summary ---
Author Organization [facility] Address [address] [place] [address] Care Team Providers Care Sign Artist Name Role Phone Unavailable Primary Care Provider Unavailabl e Encounter Details Date Type Department Care Team (Late st Contact Info) Description 01/02/1999 Outpatient Historical HIS MD Ld VO Jorge A, MD [address] [facility] [address] [place] [address] Social History Tobacco Use Types Packs/Day Years Used Date Smoking Tobacco: Never Assessed Comments Unknown Sex and Gender Information Value Date Recorded Sex Assigned at Not on file Legal Sex Female 4:27 AM FINE SANDER Gender Identity Not on file Sexual Orientation Not on file documented as of this encounter Plan of Treatment Not on file documented as of this encounter Visit Diagnoses Not on filedocumented in this encounter
--- OUTSIDE RECORDS SUMMARY | 2024-12-29 17:22 | XMS_ITS | Continuity of Care Document ---
Author Organization [facility] Address [address] [place] [address] Phone Care Team Providers Care Feller Buncher Operator Name Role Phone Kain Tellez Unavailable Unavailable Advance Directives Directive Yes / No Effective Date File Name No Information Encounters Encounter Description Practice Location Reason(s) For Visit Diagnoses Date Provider Providers Copied on Encounter [facility], [address], [place], [place], [id number], [place] tel:[phone] [facility] No Information [phone] Doisy Edward. [address] , [address], [place], [address], [place]. tel:[phone] Family History Family Member Type Diagnosis Age At Onset No Information Payers Payer name Insurance type Covered democrat ID Authoriza tion(s) No Information Social History [...]
--- OUTSIDE RECORDS SUMMARY | 2024-12-29 17:22 | XMS_ITS | Encounter Summary ---
Author Organization [facility] Address [address] [place] [address] Care Team Providers Care Mortgage Loan Underwriter Name Role Phone Unavailable Primary Care Provider Unavailabl e Encounter Details Date Type Department Care Team (Late st Contact Info) Description 02/22/1999 Outpatient Historical HIS MD Ld VO Jorge A, MD [address] [facility] [address] [place] [address] Social History Tobacco Use Types Packs/Day Years Used Date Smoking Tobacco: Never Assessed Comments Unknown Sex and Gender Information Value Date Recorded Sex Assigned at Not on file Legal Sex Female 4:27 AM CORE CUTTER AND REAMER Gender Identity Not on file Sexual Orientation Not on file documented as of this encounter Plan of Treatment Not on file documented as of this encounter Visit Diagnoses Not on filedocumented in this encounter
--- OUTSIDE RECORDS SUMMARY | 2024-12-29 17:22 | XMS_ITS | Encounter Summary ---
Author Organization [facility] Address [address] [place] [address] Care Team Providers Care Size Tester Name Role Phone Unavailable Primary Care Provider Unavailabl e Encounter Details Date Type Department Care Team (Late st Contact Info) Description 12/26/1998 Outpatient Historical HIS MD Ld VO Jorge A, MD [address] [facility] [address] [place] [address] Social History Tobacco Use Types Packs/Day Years Used Date Smoking Tobacco: Never Assessed Comments Unknown Sex and Gender Information Value Date Recorded Sex Assigned at Not on file Legal Sex Female 4:27 AM FLORICULTURIST Gender Identity Not on file Sexual Orientation Not on file documented as of this encounter Plan of Treatment Not on file documented as of this encounter Visit Diagnoses Not on filedocumented in this encounter
--- OUTSIDE RECORDS SUMMARY | 2024-12-29 17:22 | XMS_ITS | Encounter Summary ---
Author Organization [facility] Address [address] [place] [address] Care Team Providers Care Ruling Machine Operator Name Role Phone Unavailable Primary Care Provider Unavailabl e Encounter Details Date Type Department Care Team (Late st Contact Info) Description 02/26/1999 Outpatient Historical HIS MD Ld VO Jorge A, MD [address] [facility] [address] [place] [address] Social History Tobacco Use Types Packs/Day Years Used Date Smoking Tobacco: Never Assessed Comments Unknown Sex and Gender Information Value Date Recorded Sex Assigned at Not on file Legal Sex Female 4:27 AM SOCIAL SCIENCE TEACHER Gender Identity Not on file Sexual Orientation Not on file documented as of this encounter Plan of Treatment Not on file documented as of this encounter Visit Diagnoses Not on filedocumented in this encounter
--- OUTSIDE RECORDS SUMMARY | 2024-12-29 17:22 | XMS_ITS | Encounter Summary ---
Author Organization [facility] Address [address] [place] [address] Care Team Providers Care Threat Monitoring Analyst Name Role Phone Unavailable Primary Care Provider Unavailabl e Encounter Details Date Type Department Care Team (Late st Contact Info) Description 03/20/1999 Outpatient Historical HIS MD Ld VO Jorge A, MD [address] [facility] [address] [place] [address] Social History Tobacco Use Types Packs/Day Years Used Date Smoking Tobacco: Never Assessed Comments Unknown Sex and Gender Information Value Date Recorded Sex Assigned at Not on file Legal Sex Female 4:27 AM CARD LACER JACQUARD Gender Identity Not on file Sexual Orientation Not on file documented as of this encounter Plan of Treatment Not on file documented as of this encounter Visit Diagnoses Not on filedocumented in this encounter
--- OUTSIDE RECORDS SUMMARY | 2024-12-29 17:22 | XMS_ITS | Encounter Summary ---
Author Organization [facility] Address [address] [place] [address] Care Team Providers Care Soft Sugar Cutter Name Role Phone Unavailable Primary Care Provider Unavailabl e Encounter Details Date Type Department Care Team (Late st Contact Info) Description 11/03/1998 Outpatient Historical HIS MD Ld VO Jorge A, MD [address] [facility] [address] [place] [address] Social History Tobacco Use Types Packs/Day Years Used Date Smoking Tobacco: Never Assessed Comments Unknown Sex and Gender Information Value Date Recorded Sex Assigned at Not on file Legal Sex Female 4:27 AM ACADEMIC ASSOCIATE Gender Identity Not on file Sexual Orientation Not on file documented as of this encounter Plan of Treatment Not on file documented as of this encounter Visit Diagnoses Not on filedocumented in this encounter
--- OUTSIDE RECORDS SUMMARY | 2024-12-29 17:22 | XMS_ITS | Clinical Summary ---
Author Organization [email or web address] Address [address] [place] [address] Care Team Providers Care Dixonac Operator Name Role Phone Amado Juan MD Primary Care Provider Unavail able Source Comments [email or web address],non-owned Affiliates and Associated Physician Practices is amultiple site organization consisting of ambulatory clinics and hospital sitesin [place], [place], [place] and [place]. This disclosure is being madepursuant to the Care Everywhere program and may not contain all information available regarding this patient. Last updated 18.[email or web address] Allergies Active Allergy Reactions Criticality Noted Date Comments Ibuprofen Nausea and/or Vomiting 05/19/2019 Medications * Be aware that medications may not be up to date on this document. Alwaysverify current medications with the patient. Medication Sig Dispensed Refills Start Date End Date Status aspirin (ASPIRIN) 81 MG tabletIndications:O ther psoriasis,High risk medications (not anticoagulants) long-term use Take 1 tablet by mouth Active clonazePAM (KLONOPIN) 0.5 MG tabletIndications:O ther psoriasis,High risk medications (not anticoagulants) long-term use TAKE ONE TABLET 3 TIMES DAILY AND 1 ADDITIONAL TABLET NEEDED 0 03/31/2018 Active dextromethorphan-qu iNIDine (NUEDEXTA) 20-10 MG capsuleIndications: Other psoriasis,High risk medications (not anticoagulants) long-term use Take 1 capsule by mouth every 12 hours Active escitalopram (LEXAPRO) 20 MG tabletIndications:O ther psoriasis,High risk medications (not anticoagulants) long-term use Take 20 mg by mouth once daily 5 03/31/2018 Active glipiZIDE (GLUCOTROL) 5 MG tabletIndications:O ther psoriasis,High risk medications (not anticoagulants) long-term use TAKE ONE TABLET 3 TIMES DAILY 2 03/06/2018 Active metFORMIN (GLUCOPHAGE) 500 MG tabletIndications:O ther psoriasis,High risk medications (not anticoagulants) long-term use TAKE 1 TABLET 3 TIMES EVERY DAY WITH MEALS 3 03/06/2018 Active pantoprazole EC (PROTONIX) 40 MG tabletIndications:O ther psoriasis,High risk medications (not anticoagulants) long-term use 40 mg once daily 3 03/06/2018 Activ e valsartan-hydroCHLO ROthiazide (DIOVAN HCT) 160-12.5 MG tabletIndications:O ther psoriasis,High risk medications (not anticoagulants) long-term use Take 1 tablet by mouth once daily 2 03/23/2018 Active ibuprofen (MOTRIN) 800 MG tablet TK 1 T PO Q 6 H PRN 0 05/20/2018 Active adalimumab (HUMIRA PEN) 40 MG/0.8ML injectionIndication s:Other psoriasis Inject 2 pens as loading dose, then start maintenance in 8 days. 1 week supply. 2 Pen 05/19/2019 Active Additional Information Patient not taking.Reported on 11/29/2019 calcipotriene (DOVONEX) 0.005 % ointmentIndications :Other psoriasis Apply to plaques on extremities in the morning. 30 day supply. 120 g 5 05/19/2019 Active Ergocalciferol (VITAMIN D2 PO) Take 50,000 Units by mouth every 7 days Active nadolol (CORGARD) 20 MG tablet TAKE 2 TABLETS DAILY 60 tablet 11 11/21/2020 Active fluocinonide (LIDEX) 0.05 % ointmentIndications :Other psoriasis Apply to affected area for psoriasis twice daily as needed. 30 DS 60 g 2 12/07/2020 Active naltrexone 3 MG capsuleIndications: Psoriasis Take 1 (one) capsule by mouth at bedtime . 30 day supply 30 capsule 5 03/01/2021 Active Active Problems Problem Noted Date Diagnosed Date Anxiety and depression 05/17/2018 Arthritis 05/17/2018 Hypertension 05/17/2018 Psoriasis 05/17/2018 Type 2 diabetes mellitus 05/17/2018 Esophageal varices 02/27/2016 Overview (05/17/2018): Overview: 02/27/16 EGD: small esophageal varices, small gastric varix, mod PHG Granulomatous disease 10/19/2012 Overview (05/17/2018): Overview: Adenopathy in abdomen, granulomas on liver biopsy, PAUL 83. No official dx of sarcoidosis. 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 I'm opposed. 02/27/16 US: no focal lesions, no ascites mcm GERD (gastroesophageal reflux disease) 3 Overview (05/17/2018): Overview: 11/13/10 EGD: LA class A esophagitis, irregular z-line suggestive of Gama's (no biopsies due to cirrhosis) 02/27/16 EGD: no esophagitis, z-line still irregular suggestive of Gama's, no biopsies due to varices Hyperlipidemia 10/18/2012 Obesity 10/18/2012 Psoriatic arthritis 10/18/2012 Vitamin D deficiency 10/18/2012 Overview (05/17/2018): Overview: 03/12/11: 21.6 ng/ml 03/30/13: 25 ng/ml (discuss at next appt) Immunizations Name Administration Dates Next Due INFLUENZA VACCINE 08/05/2019 Family History Medical History Relation Name Comments Asthma Neg Hx CVA Neg Hx Cancer - Breast Neg Hx Cancer - Other Neg Hx Cancer - Skin, Melanoma Neg Hx Cancer - Skin, Non Melanoma Neg Hx Eczema Neg Hx Hemophilia Neg Hx Psoriasis Neg Hx Social History Tobacco Use Types Packs/Day Years Used Date Smoking Tobacco: Never Smokeless Tobacco: Never Alcohol Use Standard Drinks/Week Comments Yes 0 (1 standard drink = 0.6 oz pur e alcohol) occasionally Sex and Gender Information Value Date Recorded Sex Assigned at Not on file Gender Identity Not on file Sexual Orientation Not on file Last Filed Vital Signs Vital Sign Reading Time Taken Comments Blood Pressure 166/85 08/03/2018 1:30 PM CDT Pulse 54 08/03/2018 1:30 PM CDT Temperature 36.2 C (97.2 F) 08/03/2018 1:30 PM CDT Respiratory Rate 14 05/19/2017 12:57 PM CDT Oxygen Saturation 98% 08/03/2018 1:30 PM CDT Inhaled Oxygen Concentration - - Weight 97.5 kg (215 lb) 08/03/2018 1:30 PM CDT Height 157.5 cm (5' 2 ) 08/03/2018 1:30 PM CDT Body Mass Index 39.32 08/03/2018 1:30 PM CDT Plan of Treatment Health Maintenance Due Date Last Done Comments BONE DENSITY TESTING 1958 COLOGUARD (AGES 45-75) - COLON CA SCREENING 1958 COLON MONITORING 1958 COLONOSCOPY - COLON CA SCREENING 1958 CT COLONOGRAPHY - COLON CA SCREENING 1958 Colorectal Cancer Screening 1958 FIT - COLON CA SCREENING 1958 FLEX SIG - COLON CA SCREENING 1958 MAMMOGRAM 1958 MEDICARE AWV 12 MONTHS 1958 Opioid Medication Agreement - Annual 1958 HEPATITIS C SCREENING 09/28/1976 DTAP/TDAP/TD VACCINES (1 - Tdap) 1977 PNEUMOCOCCAL VACCINE 50+ (1 of 2 - PCV) 1977 DIABETES-STATIN 1998 ZOSTER VACCINE (1 of 2) 2008 HEPATITIS B VACCINE (1 of 3 - Risk 3-dose series) 2018 Respiratory Syncytial Virus (RSV) Vaccine Pt: or over 60 yrs (1 - Risk 60-74 years 1-dose series) 2018 DIABETES RETINOPATHY SCREENING 11/19/2018 03/08/2013 DIABETES-FOOT EXAM WITH MONOFILAMENT 11/19/2018 DIABETES-HGB A1C 11/19/2018 DIABETES-SERUM CREATININE 04/19/20202018, 06/02/2018, 05/16/2017, Additional history exists COVID-19 VACCINE ( - 2023- season) 2024 INFLUENZA VACCINE (#1) 2024 08/05/2019 DEPRESSION SCREENING 10/06/2024 DIABETES - URINE PROTEIN SCREENING 10/06/2024 HIB VACCINE Aged Out No longer eligi ble based on patient's age to complete this topic HPV VACCINE Aged Out No longer eligi ble based on patient's age to complete this topic MENINGOCOCCAL (Group B) VACCINE SHARED DECISION-MAKING Aged Out No longer eligible based on patient's age to complete this topic MENINGOCOCCAL GROUPS A/C/Y/W VACCINE Aged Out No longer eligible based on patient's age to complete this topic Procedures Procedure Name Priority Date/Time Associated Diagnosis Comments COMPREHENSIVE METABOLIC PANEL 04/19/2019 9:59 AM CDT from Last 3 Months or Most Recently Relevant to Health Maintenance Results * (ABNORMAL) COMPREHENSIVE METABOLIC PANEL (04/19/2019 9:59 AM CDT) Glucose 250(H) 65 - 99 mg/dL [facility] Comment: Fasting reference interval For someone without known diabetes, a glucose value >125 mg/dL indicates that they may have diabetes and this should be confirmed with a follow-up test. BUN 8 7 - 25 mg/dL [facility] Creatinine 0.69 0.50 - 0.99 mg/dL [facility] Comment: For patients >49 years of age, the reference limit for Creatinine is approximately 13% higher for people identified as -Bermudian. eGFR by MDRD 95 > OR = 60 mL/min/1 .73m2 [facility] eGFR by MDRD 110 > OR = 60 mL/min/1 .73m2 [facility] BUN/Creatinine Ratio NOT APPLICABLE 6 - 22 (calc) [facility] Sodium 135 135 - 146 mmol/L [facility] Potassium 4.7 3.5 - 5.3 mmol/L [facility] Chloride 94(L) 98 - 110 mmol/L [facility] CO2 32 20 - 32 mmol/L [facility] Calcium 9.1 8.6 - 10.4 mg/dL [facility] Protein Total 7.4 6.1 - 8.1 g/dL [facility] Albumin 3.7 3.6 - 5.1 g/dL [facility] Globulin Total 3.7 1.9 - 3.7 g/dL (calc) [facility] Albumin/Globulin Ratio 1.0 1.0 - 2.5 (calc) [facility] Bilirubin Total 0.8 0.2 - 1.2 mg/dL [facility] Alkaline Phosphatase 95 33 - 130 U/L [facility] AST 52(H) 10 - 35 U/L [facility] ALT 26 6 - 29 U/L [facility] Comment: REPORT COMMENT: NO DRAW FEE 2ND ORDER FASTING:YES Test Performed at: [email or web address] [id number] [id number] NITIN INFANTE DO,MPH 04/19/2019 9:59 AM CDT 04/19/2019 10:00 AM CDT Nasra Dsouza MD LAB - CHEMISTRY NICOLE MARTÍNEZ [facility] [address] [place] [address] from Last 3 Months or Most Recently Relevant to Health Maintenance Care Teams Dixonac Operator Relationship Specialty Start Date End Date Amado Juan MD PCP - General 03/17/18
--- OUTSIDE RECORDS SUMMARY | 2024-12-29 17:22 | XMS_ITS | Encounter Summary ---
Author Organization [facility] Address [address] [place] [address] Care Team Providers Care Mutuel Department Manager Name Role Phone Unavailable Primary Care Provider Unavailabl e Encounter Details Date Type Department Care Team (Late st Contact Info) Description 03/29/1999 Outpatient Historical HIS MD Ld VO Jorge A, MD [address] [facility] [address] [place] [address] Social History Tobacco Use Types Packs/Day Years Used Date Smoking Tobacco: Never Assessed Comments Unknown Sex and Gender Information Value Date Recorded Sex Assigned at Not on file Legal Sex Female 4:27 AM CANVAS WORKER Gender Identity Not on file Sexual Orientation Not on file documented as of this encounter Plan of Treatment Not on file documented as of this encounter Visit Diagnoses Not on filedocumented in this encounter
--- OUTSIDE RECORDS SUMMARY | 2024-12-29 17:22 | XMS_ITS | Encounter Summary ---
Author Organization [facility] Address [address] [place] [address] Care Team Providers Care Software Performance Engineer Name Role Phone Unavailable Primary Care Provider Unavailabl e Encounter Details Date Type Department Care Team (Late st Contact Info) Description 02/08/1999 Outpatient Historical HIS MD Ld VO Jorge A, MD [address] [facility] [address] [place] [address] Social History Tobacco Use Types Packs/Day Years Used Date Smoking Tobacco: Never Assessed Comments Unknown Sex and Gender Information Value Date Recorded Sex Assigned at Not on file Legal Sex Female 4:27 AM DRUM STOCK CLERK Gender Identity Not on file Sexual Orientation Not on file documented as of this encounter Plan of Treatment Not on file documented as of this encounter Visit Diagnoses Not on filedocumented in this encounter
--- OUTSIDE RECORDS SUMMARY | 2024-12-29 17:22 | XMS_ITS | Encounter Summary ---
Author Organization [facility] Address [address] [place] [address] Care Team Providers Care Turf Grower Name Role Phone Unavailable Primary Care Provider Unavailabl e Encounter Details Date Type Department Care Team (Late st Contact Info) Description 03/20/1999 Outpatient Historical HIS MD Ld VO Jorge A, MD [address] [facility] [address] [place] [address] Social History Tobacco Use Types Packs/Day Years Used Date Smoking Tobacco: Never Assessed Comments Unknown Sex and Gender Information Value Date Recorded Sex Assigned at Not on file Legal Sex Female 4:27 AM STRAINER MILL OPERATOR Gender Identity Not on file Sexual Orientation Not on file documented as of this encounter Plan of Treatment Not on file documented as of this encounter Visit Diagnoses Not on filedocumented in this encounter
--- OUTSIDE RECORDS SUMMARY | 2024-12-29 17:22 | XMS_ITS | Encounter Summary ---
Author Organization [facility] Address [address] [place] [address] Care Team Providers Care Sweep Press Operator Name Role Phone Unavailable Primary Care Provider Unavailabl e Encounter Details Date Type Department Care Team (Late st Contact Info) Description 02/08/1999 Outpatient Historical HIS MD Ld VO Jorge A, MD [address] [facility] [address] [place] [address] Social History Tobacco Use Types Packs/Day Years Used Date Smoking Tobacco: Never Assessed Comments Unknown Sex and Gender Information Value Date Recorded Sex Assigned at Not on file Legal Sex Female 4:27 AM SMALL ANIMAL CARETAKER Gender Identity Not on file Sexual Orientation Not on file documented as of this encounter Plan of Treatment Not on file documented as of this encounter Visit Diagnoses Not on filedocumented in this encounter
--- OUTSIDE RECORDS SUMMARY | 2024-12-29 17:22 | XMS_ITS | Encounter Summary ---
Author Organization [facility] Address [address] [place] [address] Care Team Providers Care Coding Validator Name Role Phone Unavailable Primary Care Provider Unavailabl e Encounter Details Date Type Department Care Team (Late st Contact Info) Description 02/08/1999 Outpatient Historical HIS MD Ld VO Jorge A, MD [address] [facility] [address] [place] [address] Social History Tobacco Use Types Packs/Day Years Used Date Smoking Tobacco: Never Assessed Comments Unknown Sex and Gender Information Value Date Recorded Sex Assigned at Not on file Legal Sex Female 4:27 AM PRODUCTION TESTER Gender Identity Not on file Sexual Orientation Not on file documented as of this encounter Plan of Treatment Not on file documented as of this encounter Visit Diagnoses Not on filedocumented in this encounter
--- OUTSIDE RECORDS SUMMARY | 2024-12-29 17:22 | XMS_ITS | Encounter Summary ---
Author Organization [facility] Address [address] [place] [address] Care Team Providers Care Photographer Scientific Name Role Phone Unavailable Primary Care Provider Unavailabl e Encounter Details Date Type Department Care Team (Late st Contact Info) Description 02/27/1999 Outpatient Historical HIS MD Ld VO Jorge A, MD [address] [facility] [address] [place] [address] Social History Tobacco Use Types Packs/Day Years Used Date Smoking Tobacco: Never Assessed Comments Unknown Sex and Gender Information Value Date Recorded Sex Assigned at Not on file Legal Sex Female 4:27 AM FLOOR SWEEPER Gender Identity Not on file Sexual Orientation Not on file documented as of this encounter Plan of Treatment Not on file documented as of this encounter Visit Diagnoses Not on filedocumented in this encounter
--- OUTSIDE RECORDS SUMMARY | 2024-12-29 17:22 | XMS_ITS | Encounter Summary ---
Author Organization [facility] Address [address] [place] [address] Care Team Providers Care Word Processing Specialist Name Role Phone Unavailable Primary Care Provider Unavailabl e Encounter Details Date Type Department Care Team (Late st Contact Info) Description 05/19/1999 Outpatient Historical HIS MD Ld VO Jorge A, MD [address] [facility] [address] [place] [address] Social History Tobacco Use Types Packs/Day Years Used Date Smoking Tobacco: Never Assessed Comments Unknown Sex and Gender Information Value Date Recorded Sex Assigned at Not on file Legal Sex Female 4:27 AM BRACE MAKER Gender Identity Not on file Sexual Orientation Not on file documented as of this encounter Plan of Treatment Not on file documented as of this encounter Visit Diagnoses Not on filedocumented in this encounter
[2024-12-29 17:47] LABS: Influenza A QL RT-PCR Negative (Negative); Influenza B QL RT-PCR Negative (Negative); SARS-CoV-2 RNA PCR Positive (Negative)
== END 2024-12-29 17:01 | disposition home or self-care (01) ==
LOC: ANHLAB 17:01
PROVIDERS: Visit Provider Family Medicine
DX: U07.1 COVID-19 (principal)
CPT/HCPCS: 87636

== ENCOUNTER 2025-02-17 10:42 | Outpatient (CLI) | payer MEDICARE, OTHER, SELFPAY ==
--- NOTE | ~2025-02-17 | CT_ITS ---
Non-contrast CT scan of the Abdomen and Pelvis Clinical indication: Contusion of abdominal wall Technique: 2.5 mm axial scans were obtained through the abdomen and pelvis without intravenous or or al contrast. Dose reduction technique was used on this scan by utilizing automated exposure control a nd iterative reconstruction technique. The dose-length product (DLP) was 762.35 mGy-cm. COMPARISON: 04/27/2024 Findings: Images through the lung bases reveal no abnormalities. There is no evidence of renal or ureteral calculi. The kidneys and the ureters are nondilated. The liver, spleen, pancreas, and adrenals appear normal. Cholecystectomy clips are present. There are atherosclerotic calcifications of the aorta. . There is no evidence of bowel obstruction. There is a prior herniorrhaphy, with masslike lesion or cy st encapsulated with the mesh, measuring 7.0 x 5.7 x 10.6 cm in size, essentially stable from prior e xam. Images through the pelvis were performed. There is no evidence of ascites or lymphadenopathy. Urinary bladder unremarkable. No pelvic mass. Impression: Stable large probable cystic collection adherent to or involving the anterior mesh from prior ventral herniorrhaphy. Reviewed, dictated and finalized at location M. Impression: Stable large probable cystic collection adherent to or involving the anterior m esh from prior ventral herniorrhaphy.
== END 2025-02-17 10:43 | disposition home or self-care (01) ==
LOC: MICIMG 10:44
PROVIDERS: PCP Family Medicine; Visit Provider Surgery
DX: S30.1XXD Contusion of abdominal wall, subsequent encounter (principal); Z98.890 Other specified postprocedural states; Z87.19 Personal history of other diseases of the digestive system
CPT/HCPCS: 74176

== ENCOUNTER 2025-03-08 14:12 | Outpatient (CLI) | payer MEDICARE, OTHER, SELFPAY ==
--- OUTSIDE RECORDS SUMMARY | 2025-03-08 14:16 | XMS_ITS | Encounter Summary ---
Author Organization [facility] Address [address] [place] [address] Care Team Providers Care Design Verification Engineer Name Role Phone Unavailable Primary Care Provider Unavailabl e Encounter Details Date Type Department Care Team (Late st Contact Info) Description 11/03/1998 Outpatient Historical HIS MD Ld VO Jorge A, MD [address] [facility] [address] [place] [address] Social History Tobacco Use Types Packs/Day Years Used Date Smoking Tobacco: Never Assessed Comments Unknown Sex and Gender Information Value Date Recorded Sex Assigned at Not on file Legal Sex Female 4:27 AM COLD WORKING SUPERVISOR Gender Identity Not on file Sexual Orientation Not on file documented as of this encounter Plan of Treatment Not on file documented as of this encounter Visit Diagnoses Not on filedocumented in this encounter
--- OUTSIDE RECORDS SUMMARY | 2025-03-08 14:16 | XMS_ITS | Encounter Summary ---
Author Organization [facility] Address [address] [place] [address] Care Team Providers Care Insulation Blanket Maker Name Role Phone Unavailable Primary Care Provider Unavailabl e Encounter Details Date Type Department Care Team (Late st Contact Info) Description 02/08/1999 Outpatient Historical HIS MD Ld VO Jorge A, MD [address] [facility] [address] [place] [address] Social History Tobacco Use Types Packs/Day Years Used Date Smoking Tobacco: Never Assessed Comments Unknown Sex and Gender Information Value Date Recorded Sex Assigned at Not on file Legal Sex Female 4:27 AM STOCKING INSPECTOR Gender Identity Not on file Sexual Orientation Not on file documented as of this encounter Plan of Treatment Not on file documented as of this encounter Visit Diagnoses Not on filedocumented in this encounter
--- OUTSIDE RECORDS SUMMARY | 2025-03-08 14:16 | XMS_ITS | Encounter Summary ---
Author Organization [facility] Address [address] [place] [address] Care Team Providers Care Machine Icer Name Role Phone Unavailable Primary Care Provider Unavailabl e Encounter Details Date Type Department Care Team (Late st Contact Info) Description 02/26/1999 Outpatient Historical HIS MD Ld VO Jorge A, MD [address] [facility] [address] [place] [address] Social History Tobacco Use Types Packs/Day Years Used Date Smoking Tobacco: Never Assessed Comments Unknown Sex and Gender Information Value Date Recorded Sex Assigned at Not on file Legal Sex Female 4:27 AM PARTS CLERK PLANT MAINTENANCE Gender Identity Not on file Sexual Orientation Not on file documented as of this encounter Plan of Treatment Not on file documented as of this encounter Visit Diagnoses Not on filedocumented in this encounter
--- OUTSIDE RECORDS SUMMARY | 2025-03-08 14:16 | XMS_ITS | Encounter Summary ---
Author Organization [facility] Address [address] [place] [address] Care Team Providers Care Hat Blocker Name Role Phone Unavailable Primary Care Provider Unavailabl e Encounter Details Date Type Department Care Team (Late st Contact Info) Description 12/26/1998 Outpatient Historical HIS MD Ld VO Jorge A, MD [address] [facility] [address] [place] [address] Social History Tobacco Use Types Packs/Day Years Used Date Smoking Tobacco: Never Assessed Comments Unknown Sex and Gender Information Value Date Recorded Sex Assigned at Not on file Legal Sex Female 4:27 AM SHOP BLACKSMITH Gender Identity Not on file Sexual Orientation Not on file documented as of this encounter Plan of Treatment Not on file documented as of this encounter Visit Diagnoses Not on filedocumented in this encounter
--- OUTSIDE RECORDS SUMMARY | 2025-03-08 14:16 | XMS_ITS | Encounter Summary ---
Author Organization [facility] Address [address] [place] [address] Care Team Providers Care Commercial Lender Name Role Phone Unavailable Primary Care Provider Unavailabl e Encounter Details Date Type Department Care Team (Late st Contact Info) Description 02/22/1999 Outpatient Historical HIS MD Ld VO Jorge A, MD [address] [facility] [address] [place] [address] Social History Tobacco Use Types Packs/Day Years Used Date Smoking Tobacco: Never Assessed Comments Unknown Sex and Gender Information Value Date Recorded Sex Assigned at Not on file Legal Sex Female 4:27 AM DIRECTOR SPECIALTY Gender Identity Not on file Sexual Orientation Not on file documented as of this encounter Plan of Treatment Not on file documented as of this encounter Visit Diagnoses Not on filedocumented in this encounter
--- OUTSIDE RECORDS SUMMARY | 2025-03-08 14:16 | XMS_ITS | Encounter Summary ---
Author Organization [facility] Address [address] [place] [address] Care Team Providers Care Cat And Dog Bather Name Role Phone Unavailable Primary Care Provider Unavailabl e Encounter Details Date Type Department Care Team (Late st Contact Info) Description 02/27/1999 Outpatient Historical HIS MD Ld VO Jorge A, MD [address] [facility] [address] [place] [address] Social History Tobacco Use Types Packs/Day Years Used Date Smoking Tobacco: Never Assessed Comments Unknown Sex and Gender Information Value Date Recorded Sex Assigned at Not on file Legal Sex Female 4:27 AM CONTRACT NEGOTIATOR Gender Identity Not on file Sexual Orientation Not on file documented as of this encounter Plan of Treatment Not on file documented as of this encounter Visit Diagnoses Not on filedocumented in this encounter
--- OUTSIDE RECORDS SUMMARY | 2025-03-08 14:16 | XMS_ITS | Encounter Summary ---
Author Organization [facility] Address [address] [place] [address] Care Team Providers Care Inventory Control Planner Name Role Phone Unavailable Primary Care Provider Unavailabl e Encounter Details Date Type Department Care Team (Late st Contact Info) Description 11/03/1998 Outpatient Historical HIS MD Ld VO Jorge A, MD [address] [facility] [address] [place] [address] Social History Tobacco Use Types Packs/Day Years Used Date Smoking Tobacco: Never Assessed Comments Unknown Sex and Gender Information Value Date Recorded Sex Assigned at Not on file Legal Sex Female 4:27 AM TOOL COORDINATOR Gender Identity Not on file Sexual Orientation Not on file documented as of this encounter Plan of Treatment Not on file documented as of this encounter Visit Diagnoses Not on filedocumented in this encounter
--- OUTSIDE RECORDS SUMMARY | 2025-03-08 14:16 | XMS_ITS | Encounter Summary ---
Author Organization [facility] Address [address] [place] [address] Care Team Providers Care Tool Die Maker Name Role Phone Unavailable Primary Care Provider Unavailabl e Encounter Details Date Type Department Care Team (Late st Contact Info) Description 03/29/1999 Outpatient Historical HIS MD Ld VO Jorge A, MD [address] [facility] [address] [place] [address] Social History Tobacco Use Types Packs/Day Years Used Date Smoking Tobacco: Never Assessed Comments Unknown Sex and Gender Information Value Date Recorded Sex Assigned at Not on file Legal Sex Female 4:27 AM PRACTICAL MINISTRIES PROFESSOR Gender Identity Not on file Sexual Orientation Not on file documented as of this encounter Plan of Treatment Not on file documented as of this encounter Visit Diagnoses Not on filedocumented in this encounter
--- OUTSIDE RECORDS SUMMARY | 2025-03-08 14:16 | XMS_ITS | Encounter Summary ---
Author Organization [facility] Address [address] [place] [address] Care Team Providers Care Patient Appointment Coordinator Name Role Phone Unavailable Primary Care Provider Unavailabl e Encounter Details Date Type Department Care Team (Late st Contact Info) Description 05/19/1999 Outpatient Historical HIS MD Ld VO Jorge A, MD [address] [facility] [address] [place] [address] Social History Tobacco Use Types Packs/Day Years Used Date Smoking Tobacco: Never Assessed Comments Unknown Sex and Gender Information Value Date Recorded Sex Assigned at Not on file Legal Sex Female 4:27 AM HOSPITAL PLAN ADMINISTRATOR Gender Identity Not on file Sexual Orientation Not on file documented as of this encounter Plan of Treatment Not on file documented as of this encounter Visit Diagnoses Not on filedocumented in this encounter
--- OUTSIDE RECORDS SUMMARY | 2025-03-08 14:16 | XMS_ITS | Clinical Summary ---
Author Organization [facility] Address [address] [facility] [address] Rodriguez: Epic Prelude ADT [place] [address] Care Team Providers Care Dispute Specialist Name Role Phone Unavailable Primary Care Provider Unavailabl e Social History Tobacco Use Types Packs/Day Years Used Date Smoking Tobacco: Never Assessed Comments Unknown Sex and Gender Information Value Date Recorded Sex Assigned at Not on file Legal Sex Female 4:27 AM DICTIONARY EDITOR Gender Identity Not on file Sexual Orientation [...]
--- OUTSIDE RECORDS SUMMARY | 2025-03-08 14:16 | XMS_ITS | Encounter Summary ---
Author Organization [facility] Address [address] [place] [address] Care Team Providers Care Certified Pathology Assistant Name Role Phone Unavailable Primary Care Provider Unavailabl e Encounter Details Date Type Department Care Team (Late st Contact Info) Description 02/24/1999 Outpatient Historical HIS MD Ld VO Jorge A, MD [address] [facility] [address] [place] [address] Social History Tobacco Use Types Packs/Day Years Used Date Smoking Tobacco: Never Assessed Comments Unknown Sex and Gender Information Value Date Recorded Sex Assigned at Not on file Legal Sex Female 4:27 AM HAT FORMING MACHINE OPERATOR Gender Identity Not on file Sexual Orientation Not on file documented as of this encounter Plan of Treatment Not on file documented as of this encounter Visit Diagnoses Not on filedocumented in this encounter
--- OUTSIDE RECORDS SUMMARY | 2025-03-08 14:16 | XMS_ITS | Encounter Summary ---
Author Organization [facility] Address [address] [place] [address] Care Team Providers Care Wood Casket Maker Name Role Phone Unavailable Primary Care Provider Unavailabl e Encounter Details Date Type Department Care Team (Late st Contact Info) Description 01/02/1999 Outpatient Historical HIS MD Ld VO Jorge A, MD [address] [facility] [address] [place] [address] Social History Tobacco Use Types Packs/Day Years Used Date Smoking Tobacco: Never Assessed Comments Unknown Sex and Gender Information Value Date Recorded Sex Assigned at Not on file Legal Sex Female 4:27 AM FICTION WRITER Gender Identity Not on file Sexual Orientation Not on file documented as of this encounter Plan of Treatment Not on file documented as of this encounter Visit Diagnoses Not on filedocumented in this encounter
--- OUTSIDE RECORDS SUMMARY | 2025-03-08 14:16 | XMS_ITS | Continuity of Care Document ---
Author Organization [facility] Address [address] [place] [address] Phone Care Team Providers Care Data Reviewer Name Role Phone Kain eTllez Unavailable Unavailable Advance Directives Directive Yes / No Effective Date File Name No Information Encounters Encounter Description Practice Location Reason(s) For Visit Diagnoses Date Provider Providers Copied on Encounter [facility], [address], [place], [place], [id number], [place] tel:[phone] [facility])[3] No Information [phone] Edward. [address] , [address], [place], [address], [place]. tel:[phone] Family History Family Member Type Diagnosis Age [...]
--- OUTSIDE RECORDS SUMMARY | 2025-03-08 14:16 | XMS_ITS | Encounter Summary ---
Author Organization [facility] Address [address] [place] [address] Care Team Providers Care Bi Technical Lead Name Role Phone Unavailable Primary Care Provider Unavailabl e Encounter Details Date Type Department Care Team (Late st Contact Info) Description 03/20/1999 Outpatient Historical HIS MD Ld VO Jorge A, MD [address] [facility] [address] [place] [address] Social History Tobacco Use Types Packs/Day Years Used Date Smoking Tobacco: Never Assessed Comments Unknown Sex and Gender Information Value Date Recorded Sex Assigned at Not on file Legal Sex Female 4:27 AM EMERGENCY COMMUNICATIONS OFFICER Gender Identity Not on file Sexual Orientation Not on file documented as of this encounter Plan of Treatment Not on file documented as of this encounter Visit Diagnoses Not on filedocumented in this encounter
--- OUTSIDE RECORDS SUMMARY | 2025-03-08 14:16 | XMS_ITS | Clinical Summary ---
Author Organization [facility] Address [address] [place] [address] Care Team Providers Care Bottle Dealer Name Role Phone Amado Juan MD Primary Care Provider Unavail able Source Comments [facility],non-owned Affiliates and Associated Physician Practices is amultiple site organization consisting of ambulatory clinics and hospital sitesin [place], [place], [place] and [place]. This disclosure is being madepursuant to the Care Everywhere program and may not contain all information available regarding this patient. Last updated 18.[facility] Allergies Active Allergy Reactions Criticality Noted Date Comments Ibuprofen Nausea and/or Vomiting 05/19/2019 Medications * Be aware that medications may not be up to date on this document. Alwaysverify current medications with the patient. aspirin (ASPIRIN) 81 MG tabletIndication s:Other psoriasis,High risk medications (not anticoagulants) long-term use Take 1 tablet by mouth Active clonazePAM (KLONOPIN) 0.5 MG tabletIndication s:Other psoriasis,High risk medications (not anticoagulants) long-term use TAKE ONE TABLET 3 TIMES DAILY AND 1 ADDITIONAL TABLET NEEDED 0 8 Active dextromethorphan -quiNIDine (NUEDEXTA) 20-10 MG capsuleIndicatio ns:Other psoriasis,High risk medications (not anticoagulants) long-term use Take 1 capsule by mouth every 12 hours Active escitalopram (LEXAPRO) 20 MG tabletIndication s:Other psoriasis,High risk medications (not anticoagulants) long-term use Take 20 mg by mouth once daily 5 8 Active glipiZIDE (GLUCOTROL) 5 MG tabletIndication s:Other psoriasis,High risk medications (not anticoagulants) long-term use TAKE ONE TABLET 3 TIMES DAILY 2 8 Active metFORMIN (GLUCOPHAGE) 500 MG tabletIndication s:Other psoriasis,High risk medications (not anticoagulants) long-term use TAKE 1 TABLET 3 TIMES EVERY DAY WITH MEALS 3 8 Active pantoprazole EC (PROTONIX) 40 MG tabletIndication s:Other psoriasis,High risk medications (not anticoagulants) long-term use 40 mg once daily 3 8 Active valsartan-hydroC HLOROthiazide (DIOVAN HCT) 160-12.5 MG tabletIndication s:Other psoriasis,High risk medications (not anticoagulants) long-term use Take 1 tablet by mouth once daily 2 8 Active ibuprofen (MOTRIN) 800 MG tablet TK 1 T PO Q 6 H PRN 0 8 Active adalimumab (HUMIRA PEN) 40 MG/0.8ML injectionIndicat ions:Other psoriasis Inject 2 pens as loading dose, then start maintenance in 8 days. 1 week supply. 2 Pen 9 Active Additional Information Patient not taking.Reported on 11/29/2019 calcipotriene (DOVONEX) 0.005 % ointmentIndicati ons:Other psoriasis Apply to plaques on extremities in the morning. 30 day supply. 120 g 5 9 Active Ergocalciferol (VITAMIN D2 PO) Take 50,000 Units by mouth every 7 days Active nadolol (CORGARD) 20 MG tablet TAKE 2 TABLETS DAILY 60 tablet 11 1 Active fluocinonide (LIDEX) 0.05 % ointmentIndicati ons:Other psoriasis Apply to affected area for psoriasis twice daily as needed. 30 DS 60 g 2 1 Active naltrexone 3 MG capsuleIndicatio ns:Psoriasis Take 1 (one) capsule by mouth at bedtime . 30 day supply 30 capsule 5 1 Active Active Problems Problem Noted Date Diagnosed [...] 25 ng/ml (discuss at next appt) Immunizations Immunization Administration Dates Next Due INFLUENZA VACCINE 08/05/2019 [...] = 0.6 oz pur e alcohol) occasionally Comments Unknown Sex and Gender Information Value Date Recorded Sex Assigned at Not on file Legal Sex Female 5:37 AM BUSINESS DEVELOPMENT AGENT Gender Identity Not on file Sexual Orientation [...] 1:30 PM CDT Height 157.5 cm (5' 2) 08/03/2018 1:30 PM CDT Body Mass Index [...] - COLON CA SCREENING 1958 MAMMOGRAM 1958 Opioid Medication Agreement - Annual 1958 HEPATITIS C SCREENING 09/28/1976 DTAP/TDAP/TD VACCINES (1 - Tdap) 1977 DIABETES-STATIN 1998 PNEUMOCOCCAL VACCINE 50+ (1 of 1 - PCV) 2008 ZOSTER VACCINE (1 of 2) 2008 DIABETES-FOOT EXAM WITH MONOFILAMENT 11/19/2018 DIABETES-HGB A1C 11/19/2018 DIABETES-SERUM CREATININE 04/19/20202018, 06/02/2018, 05/16/2017, Additional history exists COVID-19 VACCINE (1 - season) 2024 DEPRESSION SCREENING 10/06/2024 DIABETES - URINE PROTEIN SCREENING 10/06/2024 INFLUENZA VACCINE (Season Ended) 2025 08/05/2019 Respiratory Syncytial Virus (RSV) Vaccine Pt: or over 60 yrs (1 - 1-dose 75+ series) 2033 HEPATITIS B VACCINE Aged Out No longe r eligible based on patient's age to complete this topic HIB VACCINE Aged Out No longer eligi [...] approximately 13% higher for people identified as -Citizen Of [place]. eGFR by MDRD 95 > OR = [...] FEE 2ND ORDER FASTING:YES Test Performed at: [facility] [address] [id number] NITIN INFANTE DO,MPH 04/19/2019 9:59 AM CDT 04/19/2019 10:00 AM CDT us Aimauro Dsouza MD LAB - CHEMISTRY ORDERABLES Fi nal Result [facility] [address] [place] [address] from Last 3 Months or Most Recently Relevant to Health Maintenance Insurance MEDICARE [facility] MEDICARE Care Teams Bottle Dealer Relationship Specialty Start Date End Date Amado Juan MD PCP - General 03/17/18
--- OUTSIDE RECORDS SUMMARY | 2025-03-08 14:16 | XMS_ITS | Encounter Summary ---
Author Organization [facility] Address [address] [place] [address] Care Team Providers Care Sales And Marketing Intern Name Role Phone Unavailable Primary Care Provider Unavailabl e Encounter Details Date Type Department Care Team (Late st Contact Info) Description 03/20/1999 Outpatient Historical HIS MD Ld VO Jorge A, MD [address] [facility] [address] [place] [address] Social History Tobacco Use Types Packs/Day Years Used Date Smoking Tobacco: Never Assessed Comments Unknown Sex and Gender Information Value Date Recorded Sex Assigned at Not on file Legal Sex Female 4:27 AM NEON LIGHT INSTALLER Gender Identity Not on file Sexual Orientation Not on file documented as of this encounter Plan of Treatment Not on file documented as of this encounter Visit Diagnoses Not on filedocumented in this encounter
--- OUTSIDE RECORDS SUMMARY | 2025-03-08 14:16 | XMS_ITS | Encounter Summary ---
Author Organization [facility] Address [address] [place] [address] Care Team Providers Care Showcase Trimmer Name Role Phone Unavailable Primary Care Provider Unavailabl e Encounter Details Date Type Department Care Team (Late st Contact Info) Description 02/08/1999 Outpatient Historical HIS MD Ld VO Jorge A, MD [address] [facility] [address] [place] [address] Social History Tobacco Use Types Packs/Day Years Used Date Smoking Tobacco: Never Assessed Comments Unknown Sex and Gender Information Value Date Recorded Sex Assigned at Not on file Legal Sex Female 4:27 AM ACQUISITIONS EDITOR Gender Identity Not on file Sexual Orientation Not on file documented as of this encounter Plan of Treatment Not on file documented as of this encounter Visit Diagnoses Not on filedocumented in this encounter
--- OUTSIDE RECORDS SUMMARY | 2025-03-08 14:16 | XMS_ITS | Encounter Summary ---
Author Organization [facility] Address [address] [place] [address] Care Team Providers Care Tortilla Maker Name Role Phone Unavailable Primary Care Provider Unavailabl e Encounter Details Date Type Department Care Team (Late st Contact Info) Description 02/28/1999 Outpatient Historical HIS MD Ld VO Jorge A, MD [address] [facility] [address] [place] [address] Social History Tobacco Use Types Packs/Day Years Used Date Smoking Tobacco: Never Assessed Comments Unknown Sex and Gender Information Value Date Recorded Sex Assigned at Not on file Legal Sex Female 4:27 AM CREDIT CORRESPONDENCE CLERK Gender Identity Not on file Sexual Orientation Not on file documented as of this encounter Plan of Treatment Not on file documented as of this encounter Visit Diagnoses Not on filedocumented in this encounter
--- OUTSIDE RECORDS SUMMARY | 2025-03-08 14:16 | XMS_ITS | Encounter Summary ---
Author Organization [facility] Address [address] [place] [address] Care Team Providers Care Machinist Linotype Name Role Phone Unavailable Primary Care Provider Unavailabl e Encounter Details Date Type Department Care Team (Late st Contact Info) Description 02/13/1999 Outpatient Historical HIS MD Ld VO Jorge A, MD [address] [facility] [address] [place] [address] Social History Tobacco Use Types Packs/Day Years Used Date Smoking Tobacco: Never Assessed Comments Unknown Sex and Gender Information Value Date Recorded Sex Assigned at Not on file Legal Sex Female 4:27 AM LOZENGE MAKER HELPER Gender Identity Not on file Sexual Orientation Not on file documented as of this encounter Plan of Treatment Not on file documented as of this encounter Visit Diagnoses Not on filedocumented in this encounter
--- OUTSIDE RECORDS SUMMARY | 2025-03-08 14:16 | XMS_ITS | Encounter Summary ---
Author Organization [facility] Address [address] [place] [address] Care Team Providers Care Inside Sales Person Name Role Phone Unavailable Primary Care Provider Unavailabl e Encounter Details Date Type Department Care Team (Late st Contact Info) Description 02/08/1999 Outpatient Historical HIS MD Ld VO Jorge A, MD [address] [facility] [address] [place] [address] Social History Tobacco Use Types Packs/Day Years Used Date Smoking Tobacco: Never Assessed Comments Unknown Sex and Gender Information Value Date Recorded Sex Assigned at Not on file Legal Sex Female 4:27 AM AERIAL PHOTOGRAPH INTERPRETER Gender Identity Not on file Sexual Orientation Not on file documented as of this encounter Plan of Treatment Not on file documented as of this encounter Visit Diagnoses Not on filedocumented in this encounter
--- OUTSIDE RECORDS SUMMARY | 2025-03-08 14:16 | XMS_ITS | Encounter Summary ---
Author Organization [facility] Address [address] [place] [address] Care Team Providers Care Brim Plater Name Role Phone Unavailable Primary Care Provider Unavailabl e Encounter Details Date Type Department Care Team (Late st Contact Info) Description 01/25/1999 Outpatient Historical HIS MD Ld VO Jorge A, MD [address] [facility] [address] [place] [address] Social History Tobacco Use Types Packs/Day Years Used Date Smoking Tobacco: Never Assessed Comments Unknown Sex and Gender Information Value Date Recorded Sex Assigned at Not on file Legal Sex Female 4:27 AM CUTTING MACHINE TENDER Gender Identity Not on file Sexual Orientation Not on file documented as of this encounter Plan of Treatment Not on file documented as of this encounter Visit Diagnoses Not on filedocumented in this encounter
--- OUTSIDE RECORDS SUMMARY | 2025-03-08 14:16 | XMS_ITS | Encounter Summary ---
Author Organization [facility] Address [address] [place] [address] Care Team Providers Care Product Support Sales Representative Name Role Phone Unavailable Primary Care Provider Unavailabl e Encounter Details Date Type Department Care Team (Late st Contact Info) Description 03/20/1999 Outpatient Historical HIS MD Ld VO Jorge A, MD [address] [facility] [address] [place] [address] Social History Tobacco Use Types Packs/Day Years Used Date Smoking Tobacco: Never Assessed Comments Unknown Sex and Gender Information Value Date Recorded Sex Assigned at Not on file Legal Sex Female 4:27 AM SUEDING MACHINE TENDER Gender Identity Not on file Sexual Orientation Not on file documented as of this encounter Plan of Treatment Not on file documented as of this encounter Visit Diagnoses Not on filedocumented in this encounter
[2025-03-08 22:17] LABS: Rheumatoid Factor < 12.0 IU/ML (<12)
[2025-03-08 22:21] LABS: Alanine Aminotransferase 11 U/L (6-35); Albumin Level 4.1 g/dL (3.5-5.1); Alkaline Phosphatase 112 U/L (38-126); Anion Gap 9 mmol/L (4-12); Aspartate Amino Transferase 45 U/L (14-36); Bilirubin,Total 0.6 mg/dL (0.2-1.3); Blood Urea Nitrogen 18 mg/dL (7-17); CRP < 0.5 mg/dL (<1.0); Calcium 9.3 mg/dL (8.4-10.2); Carbon Dioxide 27 mmol/L (22-30); Chloride 97 mmol/L (98-107); Cholesterol 169 mg/dL (0-200); Estimated Glomerular Filt Rate 52; Glucose 175 mg/dL (65-110); HDL Direct 48 mg/dL; Potassium 4.4 mmol/L (3.4-5.0); Sodium 133 mmol/L (137-145); Total Protein 8.4 g/dL (6.3-8.2); Triglycerides 121 mg/dL (<150)
[2025-03-08 22:29] LABS: LDL Cholesterol Direct 83 mg/dL
[2025-03-08 23:29] LABS: Hemoglobin A1C 4.8 % (<5.7)
[2025-03-11 12:29] LABS: Anti Nuclear Antibody Pattern Nuclear, Speckled; Anti Nuclear Antibody Titer 1:40 titer
== END 2025-03-08 14:13 | disposition home or self-care (01) ==
PROVIDERS: PCP Family Medicine; Visit Provider Family Medicine
DX: M79.89 Other specified soft tissue disorders (principal); E11.9 Type 2 diabetes mellitus without complications; E55.9 Vitamin D deficiency, unspecified; E78.5 Hyperlipidemia, unspecified; I10 Essential (primary) hypertension
CPT/HCPCS: 36415; 80053; 80061; 82306; 83036; 86038; 86039; 86140; 86430

== ENCOUNTER 2025-03-08 14:35 | Outpatient (CLI) | payer OTHER, MEDICARE, SELFPAY ==
--- NOTE | ~2025-03-08 | XR_ITS ---
Thoracic spine: Clinical Indication: Back pain AP and lateral views were performed. No fracture is seen. There is normal alignment of the vertebrae. The intervertebral disc spaces appe ar normal. Paravertebral soft tissues appear normal. Impression: No significant abnormalities noted. Reviewed, dictated and finalized at [facility]. Impression: No significant abnormalities noted.
== END 2025-03-08 14:36 | disposition home or self-care (01) ==
PROVIDERS: PCP Nurse Practitioner Family; Visit Provider Nurse Practitioner Family
DX: M54.6 Pain in thoracic spine (principal)
CPT/HCPCS: 72070

== ENCOUNTER 2025-03-15 15:54 | Outpatient (NON) | payer OTHER, MEDICARE, SELFPAY ==
--- OUTSIDE RECORDS SUMMARY | 2025-03-15 17:06 | XMS_ITS | Encounter Summary ---
Author Organization [facility] Address [address] [place] [address] Care Team Providers Care Dairy Science Teacher Name Role Phone Unavailable Primary Care Provider Unavailabl e Encounter Details Date Type Department Care Team (Late st Contact Info) Description 03/29/1999 Outpatient Historical HIS MD Ld VO Jorge A, MD [address] [facility] [address] [place] [address] Social History Tobacco Use Types Packs/Day Years Used Date Smoking Tobacco: Never Assessed Comments Unknown Sex and Gender Information Value Date Recorded Sex Assigned at Not on file Legal Sex Female 4:27 AM DIANETIC COUNSELOR Gender Identity Not on file Sexual Orientation Not on file documented as of this encounter Plan of Treatment Not on file documented as of this encounter Visit Diagnoses Not on filedocumented in this encounter
--- OUTSIDE RECORDS SUMMARY | 2025-03-15 17:06 | XMS_ITS | Encounter Summary ---
Author Organization [facility] Address [address] [place] [address] Care Team Providers Care Accessioner Name Role Phone Unavailable Primary Care Provider Unavailabl e Encounter Details Date Type Department Care Team (Late st Contact Info) Description 02/08/1999 Outpatient Historical HIS MD Ld VO Jorge A, MD [address] [facility] [address] [place] [address] Social History Tobacco Use Types Packs/Day Years Used Date Smoking Tobacco: Never Assessed Comments Unknown Sex and Gender Information Value Date Recorded Sex Assigned at Not on file Legal Sex Female 4:27 AM FIG CAPRIFIER Gender Identity Not on file Sexual Orientation Not on file documented as of this encounter Plan of Treatment Not on file documented as of this encounter Visit Diagnoses Not on filedocumented in this encounter
--- OUTSIDE RECORDS SUMMARY | 2025-03-15 17:06 | XMS_ITS | Encounter Summary ---
Author Organization [facility] Address [address] [place] [address] Care Team Providers Care Patient Access Name Role Phone Unavailable Primary Care Provider Unavailabl e Encounter Details Date Type Department Care Team (Late st Contact Info) Description 02/24/1999 Outpatient Historical HIS MD Ld VO Jorge A, MD [address] [facility] [address] [place] [address] Social History Tobacco Use Types Packs/Day Years Used Date Smoking Tobacco: Never Assessed Comments Unknown Sex and Gender Information Value Date Recorded Sex Assigned at Not on file Legal Sex Female 4:27 AM CAR TRIMMER Gender Identity Not on file Sexual Orientation Not on file documented as of this encounter Plan of Treatment Not on file documented as of this encounter Visit Diagnoses Not on filedocumented in this encounter
--- OUTSIDE RECORDS SUMMARY | 2025-03-15 17:06 | XMS_ITS | Encounter Summary ---
Author Organization [facility] Address [address] [place] [address] Care Team Providers Care Email Marketing Assistant Name Role Phone Unavailable Primary Care Provider Unavailabl e Encounter Details Date Type Department Care Team (Late st Contact Info) Description 11/03/1998 Outpatient Historical HIS MD Ld VO Jorge A, MD [address] [facility] [address] [place] [address] Social History Tobacco Use Types Packs/Day Years Used Date Smoking Tobacco: Never Assessed Comments Unknown Sex and Gender Information Value Date Recorded Sex Assigned at Not on file Legal Sex Female 4:27 AM SUPERVISOR CAPACITOR PROCESSING Gender Identity Not on file Sexual Orientation Not on file documented as of this encounter Plan of Treatment Not on file documented as of this encounter Visit Diagnoses Not on filedocumented in this encounter
--- OUTSIDE RECORDS SUMMARY | 2025-03-15 17:06 | XMS_ITS | Encounter Summary ---
Author Organization [facility] Address [address] [place] [address] Care Team Providers Care Administrative Personal Assistant Name Role Phone Unavailable Primary Care Provider Unavailabl e Encounter Details Date Type Department Care Team (Late st Contact Info) Description 05/19/1999 Outpatient Historical HIS MD Ld VO Jorge A, MD [address] [facility] [address] [place] [address] Social History Tobacco Use Types Packs/Day Years Used Date Smoking Tobacco: Never Assessed Comments Unknown Sex and Gender Information Value Date Recorded Sex Assigned at Not on file Legal Sex Female 4:27 AM WHOLESALE BUYER Gender Identity Not on file Sexual Orientation Not on file documented as of this encounter Plan of Treatment Not on file documented as of this encounter Visit Diagnoses Not on filedocumented in this encounter
--- OUTSIDE RECORDS SUMMARY | 2025-03-15 17:06 | XMS_ITS | Encounter Summary ---
Author Organization [facility] Address [address] [place] [address] Care Team Providers Care Messenger Floorperson Name Role Phone Unavailable Primary Care Provider Unavailabl e Encounter Details Date Type Department Care Team (Late st Contact Info) Description 02/28/1999 Outpatient Historical HIS MD Ld VO Jorge A, MD [address] [facility] [address] [place] [address] Social History Tobacco Use Types Packs/Day Years Used Date Smoking Tobacco: Never Assessed Comments Unknown Sex and Gender Information Value Date Recorded Sex Assigned at Not on file Legal Sex Female 4:27 AM ROTATIONAL MOULDING OPERATOR Gender Identity Not on file Sexual Orientation Not on file documented as of this encounter Plan of Treatment Not on file documented as of this encounter Visit Diagnoses Not on filedocumented in this encounter
--- OUTSIDE RECORDS SUMMARY | 2025-03-15 17:06 | XMS_ITS | Encounter Summary ---
Author Organization [facility] Address [address] [place] [address] Care Team Providers Care Brush Filler Hand Name Role Phone Unavailable Primary Care Provider Unavailabl e Encounter Details Date Type Department Care Team (Late st Contact Info) Description 02/13/1999 Outpatient Historical HIS MD Ld VO Jorge A, MD [address] [facility] [address] [place] [address] Social History Tobacco Use Types Packs/Day Years Used Date Smoking Tobacco: Never Assessed Comments Unknown Sex and Gender Information Value Date Recorded Sex Assigned at Not on file Legal Sex Female 4:27 AM ETL APPLICATION DEVELOPER Gender Identity Not on file Sexual Orientation Not on file documented as of this encounter Plan of Treatment Not on file documented as of this encounter Visit Diagnoses Not on filedocumented in this encounter
--- OUTSIDE RECORDS SUMMARY | 2025-03-15 17:06 | XMS_ITS | Encounter Summary ---
Author Organization [facility] Address [address] [place] [address] Care Team Providers Care Senior Engineering Associate Name Role Phone Unavailable Primary Care Provider Unavailabl e Encounter Details Date Type Department Care Team (Late st Contact Info) Description 03/20/1999 Outpatient Historical HIS MD Ld VO Jorge A, MD [address] [facility] [address] [place] [address] Social History Tobacco Use Types Packs/Day Years Used Date Smoking Tobacco: Never Assessed Comments Unknown Sex and Gender Information Value Date Recorded Sex Assigned at Not on file Legal Sex Female 4:27 AM TECHNICAL TRAINING INSTRUCTOR Gender Identity Not on file Sexual Orientation Not on file documented as of this encounter Plan of Treatment Not on file documented as of this encounter Visit Diagnoses Not on filedocumented in this encounter
--- OUTSIDE RECORDS SUMMARY | 2025-03-15 17:06 | XMS_ITS | Encounter Summary ---
Author Organization [facility] Address [address] [place] [address] Care Team Providers Care Photogrammetric Surveyor Name Role Phone Unavailable Primary Care Provider Unavailabl e Encounter Details Date Type Department Care Team (Late st Contact Info) Description 02/27/1999 Outpatient Historical HIS MD Ld VO Jorge A, MD [address] [facility] [address] [place] [address] Social History Tobacco Use Types Packs/Day Years Used Date Smoking Tobacco: Never Assessed Comments Unknown Sex and Gender Information Value Date Recorded Sex Assigned at Not on file Legal Sex Female 4:27 AM BIAS CUTTER HELPER Gender Identity Not on file Sexual Orientation Not on file documented as of this encounter Plan of Treatment Not on file documented as of this encounter Visit Diagnoses Not on filedocumented in this encounter
--- OUTSIDE RECORDS SUMMARY | 2025-03-15 17:06 | XMS_ITS | Encounter Summary ---
Author Organization [facility] Address [address] [place] [address] Care Team Providers Care Patternator Name Role Phone Unavailable Primary Care Provider Unavailabl e Encounter Details Date Type Department Care Team (Late st Contact Info) Description 01/02/1999 Outpatient Historical HIS MD Ld VO Jorge A, MD [address] [facility] [address] [place] [address] Social History Tobacco Use Types Packs/Day Years Used Date Smoking Tobacco: Never Assessed Comments Unknown Sex and Gender Information Value Date Recorded Sex Assigned at Not on file Legal Sex Female 4:27 AM STAFFING BRANCH MANAGER Gender Identity Not on file Sexual Orientation Not on file documented as of this encounter Plan of Treatment Not on file documented as of this encounter Visit Diagnoses Not on filedocumented in this encounter
--- OUTSIDE RECORDS SUMMARY | 2025-03-15 17:06 | XMS_ITS | Encounter Summary ---
Author Organization [facility] Address [address] [place] [address] Care Team Providers Care Elevator Serviceman Name Role Phone Unavailable Primary Care Provider Unavailabl e Encounter Details Date Type Department Care Team (Late st Contact Info) Description 01/25/1999 Outpatient Historical HIS MD Ld VO Jorge A, MD [address] [facility] [address] [place] [address] Social History Tobacco Use Types Packs/Day Years Used Date Smoking Tobacco: Never Assessed Comments Unknown Sex and Gender Information Value Date Recorded Sex Assigned at Not on file Legal Sex Female 4:27 AM SUPERVISOR TYPE PHOTOGRAPHY Gender Identity Not on file Sexual Orientation Not on file documented as of this encounter Plan of Treatment Not on file documented as of this encounter Visit Diagnoses Not on filedocumented in this encounter
--- OUTSIDE RECORDS SUMMARY | 2025-03-15 17:06 | XMS_ITS | Clinical Summary ---
Author Organization [facility] Address [address] [facility] [address]: Epic Prelude ADT [place] [address] Care Team Providers Care Operations/Dispatch Name Role Phone Unavailable Primary Care Provider Unavailabl e Social History Tobacco Use Types Packs/Day Years Used Date Smoking Tobacco: Never Assessed Comments Unknown Sex and Gender Information Value Date Recorded Sex Assigned at Not on file Legal Sex Female 4:27 AM FORESTRY CONTRACTOR Gender Identity Not on file Sexual Orientation [...]
--- OUTSIDE RECORDS SUMMARY | 2025-03-15 17:06 | XMS_ITS | Encounter Summary ---
Author Organization [facility] Address [address] [place] [address] Care Team Providers Care Hand Tire Trimmer Name Role Phone Unavailable Primary Care Provider Unavailabl e Encounter Details Date Type Department Care Team (Late st Contact Info) Description 03/20/1999 Outpatient Historical HIS MD Ld VO Jorge A, MD [address] [facility] [address] [place] [address] Social History Tobacco Use Types Packs/Day Years Used Date Smoking Tobacco: Never Assessed Comments Unknown Sex and Gender Information Value Date Recorded Sex Assigned at Not on file Legal Sex Female 4:27 AM CONSTRUCTION ENGINEER Gender Identity Not on file Sexual Orientation Not on file documented as of this encounter Plan of Treatment Not on file documented as of this encounter Visit Diagnoses Not on filedocumented in this encounter
--- OUTSIDE RECORDS SUMMARY | 2025-03-15 17:06 | XMS_ITS | Encounter Summary ---
Author Organization [facility] Address [address] [place] [address] Care Team Providers Care Mechanical Service Specialist Name Role Phone Unavailable Primary Care Provider Unavailabl e Encounter Details Date Type Department Care Team (Late st Contact Info) Description 02/22/1999 Outpatient Historical HIS MD Ld VO Jorge A, MD [address] [facility] [address] [place] [address] Social History Tobacco Use Types Packs/Day Years Used Date Smoking Tobacco: Never Assessed Comments Unknown Sex and Gender Information Value Date Recorded Sex Assigned at Not on file Legal Sex Female 4:27 AM HOME HOUSEKEEPER Gender Identity Not on file Sexual Orientation Not on file documented as of this encounter Plan of Treatment Not on file documented as of this encounter Visit Diagnoses Not on filedocumented in this encounter
--- OUTSIDE RECORDS SUMMARY | 2025-03-15 17:06 | XMS_ITS | Encounter Summary ---
Author Organization [facility] Address [address] [place] [address] Care Team Providers Care Cosmetician Name Role Phone Unavailable Primary Care Provider Unavailabl e Encounter Details Date Type Department Care Team (Late st Contact Info) Description 11/03/1998 Outpatient Historical HIS MD Ld VO Jorge A, MD [address] [facility] [address] [place] [address] Social History Tobacco Use Types Packs/Day Years Used Date Smoking Tobacco: Never Assessed Comments Unknown Sex and Gender Information Value Date Recorded Sex Assigned at Not on file Legal Sex Female 4:27 AM PICKLE SORTER Gender Identity Not on file Sexual Orientation Not on file documented as of this encounter Plan of Treatment Not on file documented as of this encounter Visit Diagnoses Not on filedocumented in this encounter
--- OUTSIDE RECORDS SUMMARY | 2025-03-15 17:06 | XMS_ITS | Encounter Summary ---
Author Organization [facility] Address [address] [place] [address] Care Team Providers Care Glass Checker Name Role Phone Unavailable Primary Care Provider Unavailabl e Encounter Details Date Type Department Care Team (Late st Contact Info) Description 02/08/1999 Outpatient Historical HIS MD Ld VO Jorge A, MD [address] [facility] [address] [place] [address] Social History Tobacco Use Types Packs/Day Years Used Date Smoking Tobacco: Never Assessed Comments Unknown Sex and Gender Information Value Date Recorded Sex Assigned at Not on file Legal Sex Female 4:27 AM TECHNOLOGY METHODOLOGY CONSULTANT Gender Identity Not on file Sexual Orientation Not on file documented as of this encounter Plan of Treatment Not on file documented as of this encounter Visit Diagnoses Not on filedocumented in this encounter
--- OUTSIDE RECORDS SUMMARY | 2025-03-15 17:06 | XMS_ITS | Encounter Summary ---
Author Organization [facility] Address [address] [place] [address] Care Team Providers Care Telecom Coordinator Name Role Phone Unavailable Primary Care Provider Unavailabl e Encounter Details Date Type Department Care Team (Late st Contact Info) Description 02/26/1999 Outpatient Historical HIS MD Ld VO Jorge A, MD [address] [facility] [address] [place] [address] Social History Tobacco Use Types Packs/Day Years Used Date Smoking Tobacco: Never Assessed Comments Unknown Sex and Gender Information Value Date Recorded Sex Assigned at Not on file Legal Sex Female 4:27 AM GRINDER OPERATOR EXTERNAL TOOL Gender Identity Not on file Sexual Orientation Not on file documented as of this encounter Plan of Treatment Not on file documented as of this encounter Visit Diagnoses Not on filedocumented in this encounter
--- OUTSIDE RECORDS SUMMARY | 2025-03-15 17:06 | XMS_ITS | Encounter Summary ---
Author Organization [facility] Address [address] [place] [address] Care Team Providers Care Conservation Science Teacher Name Role Phone Unavailable Primary Care Provider Unavailabl e Encounter Details Date Type Department Care Team (Late st Contact Info) Description 12/26/1998 Outpatient Historical HIS MD Ld VO Jorge A, MD [address] [facility] [address] [place] [address] Social History Tobacco Use Types Packs/Day Years Used Date Smoking Tobacco: Never Assessed Comments Unknown Sex and Gender Information Value Date Recorded Sex Assigned at Not on file Legal Sex Female 4:27 AM MEDICAL RECORDS AUDITOR Gender Identity Not on file Sexual Orientation Not on file documented as of this encounter Plan of Treatment Not on file documented as of this encounter Visit Diagnoses Not on filedocumented in this encounter
--- OUTSIDE RECORDS SUMMARY | 2025-03-15 17:06 | XMS_ITS | Clinical Summary ---
Author Organization [facility] Address [address] [place] [address] Care Team Providers Care Commission Broker Name Role Phone Amado Juan MD Primary Care Provider Unavail able Source Comments [facility],non-owned Affiliates and Associated Physician Practices is amultiple site organization consisting of ambulatory clinics and hospital sitesin [place], [place], [place] and [place]. This disclosure is being madepursuant to the Care Everywhere program and may not contain all information available regarding this patient. Last updated 18.[facility] Allergies Active Allergy Reactions Criticality Noted Date [...] on file Legal Sex Female 5:37 AM BAR MANAGER Gender Identity Not on file Sexual [...] approximately 13% higher for people identified as -Bhutanese. eGFR by MDRD 95 > OR = [...] FEE 2ND ORDER FASTING:YES Test Performed at: [facility] [address] [id number] NITIN INFANTE DO,MPH 04/19/2019 9:59 AM CDT 04/19/2019 10:00 AM CDT us Aimauro Dsouza MD LAB - CHEMISTRY ORDERABLES Fi nal Result [facility] [address] [place] [address] from Last 3 Months or Most Recently Relevant to Health Maintenance Insurance MEDICARE [facility] MEDICARE Care Teams Commission Broker Relationship Specialty Start Date End Date Amado Juan MD PCP - General 03/17/18
--- OUTSIDE RECORDS SUMMARY | 2025-03-15 17:06 | XMS_ITS | Encounter Summary ---
Author Organization [facility] Address [address] [place] [address] Care Team Providers Care Sewing Machines Salesperson Name Role Phone Unavailable Primary Care Provider Unavailabl e Encounter Details Date Type Department Care Team (Late st Contact Info) Description 03/20/1999 Outpatient Historical HIS MD Ld VO Jorge A, MD [address] [facility] [address] [place] [address] Social History Tobacco Use Types Packs/Day Years Used Date Smoking Tobacco: Never Assessed Comments Unknown Sex and Gender Information Value Date Recorded Sex Assigned at Not on file Legal Sex Female 4:27 AM CLEANER FURNITURE Gender Identity Not on file Sexual Orientation Not on file documented as of this encounter Plan of Treatment Not on file documented as of this encounter Visit Diagnoses Not on filedocumented in this encounter
--- OUTSIDE RECORDS SUMMARY | 2025-03-15 17:06 | XMS_ITS | Encounter Summary ---
Author Organization [facility] Address [address] [place] [address] Care Team Providers Care Heating Equipment Installer Name Role Phone Unavailable Primary Care Provider Unavailabl e Encounter Details Date Type Department Care Team (Late st Contact Info) Description 02/08/1999 Outpatient Historical HIS MD Ld VO Jorge A, MD [address] [facility] [address] [place] [address] Social History Tobacco Use Types Packs/Day Years Used Date Smoking Tobacco: Never Assessed Comments Unknown Sex and Gender Information Value Date Recorded Sex Assigned at Not on file Legal Sex Female 4:27 AM CLAY STRUCTURE BUILDER AND SERVICER Gender Identity Not on file Sexual Orientation Not on file documented as of this encounter Plan of Treatment Not on file documented as of this encounter Visit Diagnoses Not on filedocumented in this encounter
--- OUTSIDE RECORDS SUMMARY | 2025-03-15 17:06 | XMS_ITS | Continuity of Care Document ---
Author Organization [facility] Address [address] [place] [address] Phone Care Team Providers Care Student Assistant Name Role Phone Kain Tellez Unavailable Unavailable Advance Directives Directive Yes / No Effective Date File Name No Information Encounters Encounter Description Practice Location Reason(s) For Visit Diagnoses Date Provider Providers Copied on Encounter [facility], [address], [place], [place], [id number], [place] tel:[phone] [facility] No Information [phone] Doisy Edward. [address] , [address], [place], [address], [place]. tel:[phone] Family History Family Member Type Diagnosis Age At Onset No Information Payers Payer name Insurance type Covered alliance party ID Authoriza tion(s) No Information Social [...]
== END 2025-03-15 15:55 | disposition home or self-care (01) ==
LOC: ANHGOSHLAB 15:55
PROVIDERS: PCP Nurse Practitioner Family; Visit Provider Otolaryngology
DX: J32.9 Chronic sinusitis, unspecified (principal)
CPT/HCPCS: 87070; 87075; 87181; 87205

== ENCOUNTER 2025-04-22 14:10 | Outpatient (CLI) | payer OTHER, MEDICARE, SELFPAY ==
--- NOTE | ~2025-04-22 | CT_ITS ---
EXAMINATION: CT sinus wo con DATE: 04/22/2025 14:34 INDICATION: Chronic maxillary sinusitis TECHNIQUE: Computed tomography (CT) of the paranasal sinuses was performed without intravenous contra st. The dose-length product was 184.92 mGy-cm. Automated exposure control and iterative reconstructio n technique were employed. COMPARISON: CT dated 11/05/2023 FINDINGS: There is near complete opacification of the left maxillary sinus with mucoperiosteal reacti on. There is mucosal thickening of the right maxillary sinus. There is opacification of the ethmoid, left frontal and sphenoid sinuses. Mastoids are pneumatized. There are changes of resection of the le ft ostiomeatal unit. IMPRESSION: 1. Severe pansinusitis with chronic findings of the left maxillary sinus. Reviewed, dictated and finalized at location A.
--- OUTSIDE RECORDS SUMMARY | 2025-04-22 14:15 | XMS_ITS | Encounter Summary ---
Author Organization [facility] Address [address] [place] [address] Care Team Providers Care Cnc Mill Set Up Operator Name Role Phone Unavailable Primary Care Provider Unavailabl e Encounter Details Date Type Department Care Team (Late st Contact Info) Description 01/25/1999 Outpatient Historical HIS MD Ld VO Jorge A, MD [address] [facility] [address] [place] [address] Social History Tobacco Use Types Packs/Day Years Used Date Smoking Tobacco: Never Assessed Comments Unknown Sex and Gender Information Value Date Recorded Sex Assigned at Not on file Legal Sex Female 4:27 AM DEPARTMENT TRAFFIC FREIGHT ROUTER Gender Identity Not on file Sexual Orientation Not on file documented as of this encounter Plan of Treatment Not on file documented as of this encounter Visit Diagnoses Not on filedocumented in this encounter
--- OUTSIDE RECORDS SUMMARY | 2025-04-22 14:15 | XMS_ITS | Encounter Summary ---
Author Organization [facility] Address [address] [place] [address] Care Team Providers Care Scout Sniper Name Role Phone Unavailable Primary Care Provider Unavailabl e Encounter Details Date Type Department Care Team (Late st Contact Info) Description 02/08/1999 Outpatient Historical HIS MD Ld VO Jorge A, MD [address] [facility] [address] [place] [address] Social History Tobacco Use Types Packs/Day Years Used Date Smoking Tobacco: Never Assessed Comments Unknown Sex and Gender Information Value Date Recorded Sex Assigned at Not on file Legal Sex Female 4:27 AM CLAY ARTISAN Gender Identity Not on file Sexual Orientation Not on file documented as of this encounter Plan of Treatment Not on file documented as of this encounter Visit Diagnoses Not on filedocumented in this encounter
--- OUTSIDE RECORDS SUMMARY | 2025-04-22 14:15 | XMS_ITS | Encounter Summary ---
Author Organization [facility] Address [address] [place] [address] Care Team Providers Care Lehr Tender Name Role Phone Unavailable Primary Care Provider Unavailabl e Encounter Details Date Type Department Care Team (Late st Contact Info) Description 02/08/1999 Outpatient Historical HIS MD Ld VO Jorge A, MD [address] [facility] [address] [place] [address] Social History Tobacco Use Types Packs/Day Years Used Date Smoking Tobacco: Never Assessed Comments Unknown Sex and Gender Information Value Date Recorded Sex Assigned at Not on file Legal Sex Female 4:27 AM HOME HEALTH CARE PROVIDER Gender Identity Not on file Sexual Orientation Not on file documented as of this encounter Plan of Treatment Not on file documented as of this encounter Visit Diagnoses Not on filedocumented in this encounter
--- OUTSIDE RECORDS SUMMARY | 2025-04-22 14:16 | XMS_ITS | Encounter Summary ---
Author Organization [facility] Address [address] [place] [address] Care Team Providers Care Assistant Bookkeeper Name Role Phone Unavailable Primary Care Provider Unavailabl e Encounter Details Date Type Department Care Team (Late st Contact Info) Description 11/03/1998 Outpatient Historical HIS MD Ld VO Jorge A, MD [address] [facility] [address] [place] [address] Social History Tobacco Use Types Packs/Day Years Used Date Smoking Tobacco: Never Assessed Comments Unknown Sex and Gender Information Value Date Recorded Sex Assigned at Not on file Legal Sex Female 4:27 AM CHANGE PERSON Gender Identity Not on file Sexual Orientation Not on file documented as of this encounter Plan of Treatment Not on file documented as of this encounter Visit Diagnoses Not on filedocumented in this encounter
--- OUTSIDE RECORDS SUMMARY | 2025-04-22 14:16 | XMS_ITS | Clinical Summary ---
Author Organization [facility] Address [address] Rodriguez: Epic Prelude ADT [place] [address] Care Team Providers Care Breeder Hen Service Technician Name Role Phone Unavailable Primary Care Provider Unavailabl e Social History Tobacco Use Types Packs/Day Years Used Date Smoking Tobacco: Never Assessed Comments Unknown Sex and Gender Information Value Date Recorded Sex Assigned at Not on file Legal Sex Female 4:27 AM CIGARETTE EXAMINER Gender Identity Not on file Sexual Orientation [...] 2008 OSTEOPOROSIS SCREENING 2023 INFLUENZA VACCINE (#1) 2025 RSV VACCINE (60+ or ) (1 - 1-dose 75+ series) 2033
--- OUTSIDE RECORDS SUMMARY | 2025-04-22 14:16 | XMS_ITS | Encounter Summary ---
Author Organization [facility] Address [address] [place] [address] Care Team Providers Care Sales Operations Lead Name Role Phone Unavailable Primary Care Provider Unavailabl e Encounter Details Date Type Department Care Team (Late st Contact Info) Description 02/13/1999 Outpatient Historical HIS MD Ld VO Jorge A, MD [address] [facility] [address] [place] [address] Social History Tobacco Use Types Packs/Day Years Used Date Smoking Tobacco: Never Assessed Comments Unknown Sex and Gender Information Value Date Recorded Sex Assigned at Not on file Legal Sex Female 4:27 AM RECEIVING TEAM MEMBER Gender Identity Not on file Sexual Orientation Not on file documented as of this encounter Plan of Treatment Not on file documented as of this encounter Visit Diagnoses Not on filedocumented in this encounter
--- OUTSIDE RECORDS SUMMARY | 2025-04-22 14:16 | XMS_ITS | Encounter Summary ---
Author Organization [facility] Address [address] [place] [address] Care Team Providers Care Power Regulator Name Role Phone Unavailable Primary Care Provider Unavailabl e Encounter Details Date Type Department Care Team (Late st Contact Info) Description 02/26/1999 Outpatient Historical HIS MD Ld VO Jorge A, MD [address] [facility] [address] [place] [address] Social History Tobacco Use Types Packs/Day Years Used Date Smoking Tobacco: Never Assessed Comments Unknown Sex and Gender Information Value Date Recorded Sex Assigned at Not on file Legal Sex Female 4:27 AM SENIOR PHP WEB DEVELOPER Gender Identity Not on file Sexual Orientation Not on file documented as of this encounter Plan of Treatment Not on file documented as of this encounter Visit Diagnoses Not on filedocumented in this encounter
--- OUTSIDE RECORDS SUMMARY | 2025-04-22 14:16 | XMS_ITS | Encounter Summary ---
Author Organization [facility] Address [address] [place] [address] Care Team Providers Care Set Up Mechanic Heading Machines Name Role Phone Unavailable Primary Care Provider Unavailabl e Encounter Details Date Type Department Care Team (Late st Contact Info) Description 02/22/1999 Outpatient Historical HIS MD Ld VO Jorge A, MD [address] [facility] [address] [place] [address] Social History Tobacco Use Types Packs/Day Years Used Date Smoking Tobacco: Never Assessed Comments Unknown Sex and Gender Information Value Date Recorded Sex Assigned at Not on file Legal Sex Female 4:27 AM CONSOLIDATION ACCOUNTANT Gender Identity Not on file Sexual Orientation Not on file documented as of this encounter Plan of Treatment Not on file documented as of this encounter Visit Diagnoses Not on filedocumented in this encounter
--- OUTSIDE RECORDS SUMMARY | 2025-04-22 14:16 | XMS_ITS | Encounter Summary ---
Author Organization [facility] Address [address] [place] [address] Care Team Providers Care Boarder Machine Name Role Phone Unavailable Primary Care Provider Unavailabl e Encounter Details Date Type Department Care Team (Late st Contact Info) Description 03/20/1999 Outpatient Historical HIS MD Ld VO Jorge A, MD [address] [facility] [address] [place] [address] Social History Tobacco Use Types Packs/Day Years Used Date Smoking Tobacco: Never Assessed Comments Unknown Sex and Gender Information Value Date Recorded Sex Assigned at Not on file Legal Sex Female 4:27 AM CHILDREN'S INSTITUTION ATTENDANT Gender Identity Not on file Sexual Orientation Not on file documented as of this encounter Plan of Treatment Not on file documented as of this encounter Visit Diagnoses Not on filedocumented in this encounter
--- OUTSIDE RECORDS SUMMARY | 2025-04-22 14:16 | XMS_ITS | Clinical Summary ---
Author Organization [facility] Address [address] [place] [address] Care Team Providers Care Construction Inspector Name Role Phone Amado Juan MD Primary Care Provider Unavail able Source Comments [facility],non-owned Affiliates and Associated Physician Practices is amultiple site organization consisting of ambulatory clinics and hospital sitesin [place], [place], [place] and [place]. This disclosure is being madepursuant to the Care Everywhere program and may not contain all information available regarding this patient. Last updated 18.[facility] Allergies Active Allergy Reactions Criticality Noted Date [...] on file Legal Sex Female 5:37 AM HOOKMAN Gender Identity Not on file Sexual Orientation [...] - URINE PROTEIN SCREENING 10/06/2024 INFLUENZA VACCINE (#1) 2025 08/05/2019 Respiratory Syncytial Virus (RSV) Vaccine [...] approximately 13% higher for people identified as -Faroese. eGFR by MDRD 95 > OR = [...] FEE 2ND ORDER FASTING:YES Test Performed at: [facility] [address] [address] NITIN INFANTE DO,MPH 04/19/2019 9:59 AM CDT 04/19/2019 10:00 AM CDT us Aimauro Dsouza MD LAB - CHEMISTRY ORDERABLES Fi nal Result [facility] [address] [place] [address] from Last 3 Months or Most Recently Relevant to Health Maintenance [place] [address] [place] [address] MEDICARE Care Teams Construction Inspector Relationship Specialty Start Date End Date Amado Juan MD PCP - General 03/17/18
--- OUTSIDE RECORDS SUMMARY | 2025-04-22 14:16 | XMS_ITS | Encounter Summary ---
Author Organization [facility] Address [address] [place] [address] Care Team Providers Care Crown Attacher Name Role Phone Unavailable Primary Care Provider Unavailabl e Encounter Details Date Type Department Care Team (Late st Contact Info) Description 03/29/1999 Outpatient Historical HIS MD Ld VO Jorge A, MD [address] [facility] [address] [place] [address] Social History Tobacco Use Types Packs/Day Years Used Date Smoking Tobacco: Never Assessed Comments Unknown Sex and Gender Information Value Date Recorded Sex Assigned at Not on file Legal Sex Female 4:27 AM NEUROLOGIST Gender Identity Not on file Sexual Orientation Not on file documented as of this encounter Plan of Treatment Not on file documented as of this encounter Visit Diagnoses Not on filedocumented in this encounter
--- OUTSIDE RECORDS SUMMARY | 2025-04-22 14:16 | XMS_ITS | Encounter Summary ---
Author Organization [facility] Address [address] [place] [address] Care Team Providers Care Carnival Worker Name Role Phone Unavailable Primary Care Provider Unavailabl e Encounter Details Date Type Department Care Team (Late st Contact Info) Description 03/20/1999 Outpatient Historical HIS MD Ld VO Jorge A, MD [address] [facility] [address] [place] [address] Social History Tobacco Use Types Packs/Day Years Used Date Smoking Tobacco: Never Assessed Comments Unknown Sex and Gender Information Value Date Recorded Sex Assigned at Not on file Legal Sex Female 4:27 AM LINER INSERTER Gender Identity Not on file Sexual Orientation Not on file documented as of this encounter Plan of Treatment Not on file documented as of this encounter Visit Diagnoses Not on filedocumented in this encounter
--- OUTSIDE RECORDS SUMMARY | 2025-04-22 14:16 | XMS_ITS | Encounter Summary ---
Author Organization [facility] Address [address] [place] [address] Care Team Providers Care Employment Interviewer Name Role Phone Unavailable Primary Care Provider Unavailabl e Encounter Details Date Type Department Care Team (Late st Contact Info) Description 02/27/1999 Outpatient Historical HIS MD Ld VO Jorge A, MD [address] [facility] [address] [place] [address] Social History Tobacco Use Types Packs/Day Years Used Date Smoking Tobacco: Never Assessed Comments Unknown Sex and Gender Information Value Date Recorded Sex Assigned at Not on file Legal Sex Female 4:27 AM ELECTRICAL PARTS RECONDITIONER Gender Identity Not on file Sexual Orientation Not on file documented as of this encounter Plan of Treatment Not on file documented as of this encounter Visit Diagnoses Not on filedocumented in this encounter
--- OUTSIDE RECORDS SUMMARY | 2025-04-22 14:16 | XMS_ITS | Encounter Summary ---
Author Organization [facility] Address 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
--- OUTSIDE RECORDS SUMMARY | 2025-04-22 14:16 | XMS_ITS | Encounter Summary ---
Author Organization [facility] Address [address] [place] [address] Care Team Providers Care Manager Shell Name Role Phone Unavailable Primary Care Provider Unavailabl e Encounter Details Date Type Department Care Team (Late st Contact Info) Description 01/02/1999 Outpatient Historical HIS MD Ld VO Jorge A, MD [address] [facility] [address] [place] [address] Social History Tobacco Use Types Packs/Day Years Used Date Smoking Tobacco: Never Assessed Comments Unknown Sex and Gender Information Value Date Recorded Sex Assigned at Not on file Legal Sex Female 4:[address] Gender Identity Not on file Sexual Orientation Not on file documented as of this encounter Plan of Treatment Not on file documented as of this encounter Visit Diagnoses Not on filedocumented in this encounter
--- OUTSIDE RECORDS SUMMARY | 2025-04-22 14:16 | XMS_ITS | Encounter Summary ---
Author Organization [facility] Address [address] [place] [address] Care Team Providers Care Morning Nanny Name Role Phone Unavailable Primary Care Provider Unavailabl e Encounter Details Date Type Department Care Team (Late st Contact Info) Description 11/03/1998 Outpatient Historical HIS MD Ld VO Jorge A, MD [address] [facility] [address] [place] [address] Social History Tobacco Use Types Packs/Day Years Used Date Smoking Tobacco: Never Assessed Comments Unknown Sex and Gender Information Value Date Recorded Sex Assigned at Not on file Legal Sex Female 4:27 AM LOCUM TENENS HOSPITALIST Gender Identity Not on file Sexual Orientation Not on file documented as of this encounter Plan of Treatment Not on file documented as of this encounter Visit Diagnoses Not on filedocumented in this encounter
--- OUTSIDE RECORDS SUMMARY | 2025-04-22 14:16 | XMS_ITS | Encounter Summary ---
Author Organization [facility] Address [address] [place] [address] Care Team Providers Care Unishear Operator Name Role Phone Unavailable Primary Care Provider Unavailabl e Encounter Details Date Type Department Care Team (Late st Contact Info) Description 12/26/1998 Outpatient Historical HIS MD Ld VO Jorge A, MD [address] [facility] [address] [place] [address] Social History Tobacco Use Types Packs/Day Years Used Date Smoking Tobacco: Never Assessed Comments Unknown Sex and Gender Information Value Date Recorded Sex Assigned at Not on file Legal Sex Female 4:27 AM QUENCHER OPERATOR Gender Identity Not on file Sexual Orientation Not on file documented as of this encounter Plan of Treatment Not on file documented as of this encounter Visit Diagnoses Not on filedocumented in this encounter
--- OUTSIDE RECORDS SUMMARY | 2025-04-22 14:16 | XMS_ITS | Encounter Summary ---
Author Organization [facility] Address [address] [place] [address] Care Team Providers Care Inspector Health Care Facilities Name Role Phone Unavailable Primary Care Provider Unavailabl e Encounter Details Date Type Department Care Team (Late st Contact Info) Description 02/08/1999 Outpatient Historical HIS MD Ld VO Jorge A, MD [address] [facility] [address] [place] [address] Social History Tobacco Use Types Packs/Day Years Used Date Smoking Tobacco: Never Assessed Comments Unknown Sex and Gender Information Value Date Recorded Sex Assigned at Not on file Legal Sex Female 4:27 AM PULMONARY CARE NURSE Gender Identity Not on file Sexual Orientation Not on file documented as of this encounter Plan of Treatment Not on file documented as of this encounter Visit Diagnoses Not on filedocumented in this encounter
--- OUTSIDE RECORDS SUMMARY | 2025-04-22 14:16 | XMS_ITS | Encounter Summary ---
Author Organization [facility] Address [address] [place] [address] Care Team Providers Care Green House Manager Name Role Phone Unavailable Primary Care Provider Unavailabl e Encounter Details Date Type Department Care Team (Late st Contact Info) Description 03/20/1999 Outpatient Historical HIS MD Ld VO Jorge A, MD [address] [facility] [address] [place] [address] Social History Tobacco Use Types Packs/Day Years Used Date Smoking Tobacco: Never Assessed Comments Unknown Sex and Gender Information Value Date Recorded Sex Assigned at Not on file Legal Sex Female 4:27 AM POWERHOUSE OPERATOR Gender Identity Not on file Sexual Orientation Not on file documented as of this encounter Plan of Treatment Not on file documented as of this encounter Visit Diagnoses Not on filedocumented in this encounter
--- OUTSIDE RECORDS SUMMARY | 2025-04-22 14:16 | XMS_ITS | Continuity of Care Document ---
Author Organization [facility] Address [address] [place] [address] Phone Care Team Providers Care Surveying Technician Name Role Phone Kain Tellez Unavailable Unavailable Advance Directives Directive Yes / No Effective Date File Name No Information Encounters Encounter Description Practice Location Reason(s) For Visit Diagnoses Date Provider Providers Copied on Encounter [facility], [address], [place], [place], [id number], [place] tel:[phone] [facility] No Information 2-199 9 Doisy Edward. [address], [place], [address], [place]. tel:[phone] Family History Family Member Type Diagnosis Age [...]
--- OUTSIDE RECORDS SUMMARY | 2025-04-22 14:16 | XMS_ITS | Encounter Summary ---
Author Organization [facility] Address [address] [place] [address] Care Team Providers Care Corporate Development Officer Name Role Phone Unavailable Primary Care Provider Unavailabl e Encounter Details Date Type Department Care Team (Late st Contact Info) Description 02/28/1999 Outpatient Historical HIS MD Ld VO Jorge A, MD [address] [facility] [address] [place] [address] Social History Tobacco Use Types Packs/Day Years Used Date Smoking Tobacco: Never Assessed Comments Unknown Sex and Gender Information Value Date Recorded Sex Assigned at Not on file Legal Sex Female 4:27 AM RF MANAGER Gender Identity Not on file Sexual Orientation Not on file documented as of this encounter Plan of Treatment Not on file documented as of this encounter Visit Diagnoses Not on filedocumented in this encounter
--- OUTSIDE RECORDS SUMMARY | 2025-04-22 14:16 | XMS_ITS | Encounter Summary ---
Author Organization [facility] Address [address] [place] [address] Care Team Providers Care Instrumentation Designer Name Role Phone Unavailable Primary Care Provider Unavailabl e Encounter Details Date Type Department Care Team (Late st Contact Info) Description 02/24/1999 Outpatient Historical HIS MD Ld VO Jorge A, MD [address] [facility] [address] [place] [address] Social History Tobacco Use Types Packs/Day Years Used Date Smoking Tobacco: Never Assessed Comments Unknown Sex and Gender Information Value Date Recorded Sex Assigned at Not on file Legal Sex Female 4:27 AM NEGATIVE SPOTTER Gender Identity Not on file Sexual Orientation Not on file documented as of this encounter Plan of Treatment Not on file documented as of this encounter Visit Diagnoses Not on filedocumented in this encounter
== END 2025-04-22 14:11 | disposition home or self-care (01) ==
PROVIDERS: PCP Nurse Practitioner Family; Visit Provider Otolaryngology
DX: J32.0 Chronic maxillary sinusitis (principal); J34.89 Other specified disorders of nose and nasal sinuses
CPT/HCPCS: 70486

== ENCOUNTER 2025-06-15 14:11 | Outpatient (CLI) | payer OTHER, MEDICARE, SELFPAY ==
--- OUTSIDE RECORDS SUMMARY | 1999-08-07 08:45 | XMS_ITS | Continuity of Care Document ---
Author Organization [facility] Address [address] [place] [address] Phone Care Team Providers Care Heat Engineering Teacher Name Role Phone Kain Tellez Unavailable Unavailable Advance Directives Directive Yes / No Effective Date File Name No Information Encounters Encounter Description Practice Location Reason(s) For Visit Diagnoses Date Provider Providers Copied on Encounter [facility], [address], [place], [place], [id number], [place] tel:[phone] [facility] No Information 2-199 9 Doisy Edward. [address] , [address], [place], [address], [place]. tel:[phone] Family History Family Member Type Diagnosis Age At Onset No Information Payers Payer name Insurance type Covered libertarian ID Authoriza tion(s) No Information Social History [...]
--- OUTSIDE RECORDS SUMMARY | 2025-06-15 14:46 | XMS_ITS | Encounter Summary ---
Author Organization [facility] Address 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
--- OUTSIDE RECORDS SUMMARY | 2025-06-15 14:46 | XMS_ITS | Encounter Summary ---
Author Organization [facility] Address [address] [place] [address] Care Team Providers Care Airborne Mission Systems Name Role Phone Unavailable Primary Care Provider Unavailabl e Encounter Details Date Type Department Care Team (Late st Contact Info) Description 02/26/1999 Outpatient Historical HIS MD Ld VO Jorge A, MD [address] [facility] [address] [place] [address] Social History Tobacco Use Types Packs/Day Years Used Date Smoking Tobacco: Never Assessed Comments Unknown Sex and Gender Information Value Date Recorded Sex Assigned at Not on file Legal Sex Female 4:27 AM INSTRUMENT DESIGNER Gender Identity Not on file Sexual Orientation Not on file documented as of this encounter Plan of Treatment Not on file documented as of this encounter Visit Diagnoses Not on filedocumented in this encounter
--- OUTSIDE RECORDS SUMMARY | 2025-06-15 14:46 | XMS_ITS | Encounter Summary ---
Author Organization [facility] Address [address] [place] [address] Care Team Providers Care Technical Support Engineer Name Role Phone Unavailable Primary Care Provider Unavailabl e Encounter Details Date Type Department Care Team (Late st Contact Info) Description 02/27/1999 Outpatient Historical HIS MD Ld VO Jorge A, MD [address] [facility] [address] [place] [address] Social History Tobacco Use Types Packs/Day Years Used Date Smoking Tobacco: Never Assessed Comments Unknown Sex and Gender Information Value Date Recorded Sex Assigned at Not on file Legal Sex Female 4:27 AM THERAPEUTIC RECREATION SPECIALIST Gender Identity Not on file Sexual Orientation Not on file documented as of this encounter Plan of Treatment Not on file documented as of this encounter Visit Diagnoses Not on filedocumented in this encounter
--- OUTSIDE RECORDS SUMMARY | 2025-06-15 14:46 | XMS_ITS | Encounter Summary ---
Author Organization [facility] Address [address] [place] [address] Care Team Providers Care City Bus Driver Name Role Phone Unavailable Primary Care Provider Unavailabl e Encounter Details Date Type Department Care Team (Late st Contact Info) Description 05/19/1999 Outpatient Historical HIS MD Ld VO Jorge A, MD [address] [facility] [address] [place] [address] Social History Tobacco Use Types Packs/Day Years Used Date Smoking Tobacco: Never Assessed Comments Unknown Sex and Gender Information Value Date Recorded Sex Assigned at Not on file Legal Sex Female 4:27 AM WHOLESALE ACCOUNT MANAGER Gender Identity Not on file Sexual Orientation Not on file documented as of this encounter Plan of Treatment Not on file documented as of this encounter Visit Diagnoses Not on filedocumented in this encounter
--- OUTSIDE RECORDS SUMMARY | 2025-06-15 14:46 | XMS_ITS | Clinical Summary ---
Author Organization [facility] Address [address] Rodriguez: Epic Prelude ADT [place] [address] Care Team Providers Care News Internship Name Role Phone Unavailable Primary Care Provider Unavailabl e Social History Tobacco Use Types Packs/Day Years Used Date Smoking Tobacco: Never Assessed Comments Unknown Sex and Gender Information Value Date Recorded Sex Assigned at Not on file Legal Sex Female 4:27 AM SPLICING MACHINE OPERATOR AUTOMATIC Gender Identity Not on file Sexual Orientation [...]
--- OUTSIDE RECORDS SUMMARY | 2025-06-15 14:46 | XMS_ITS | Encounter Summary ---
Author Organization [facility] Address [address] [place] [address] Care Team Providers Care Bleach Liquor Maker Name Role Phone Unavailable Primary Care Provider Unavailabl e Encounter Details Date Type Department Care Team (Late st Contact Info) Description 01/25/1999 Outpatient Historical HIS MD Ld VO Jorge A, MD [address] [facility] [address] [place] [address] Social History Tobacco Use Types Packs/Day Years Used Date Smoking Tobacco: Never Assessed Comments Unknown Sex and Gender Information Value Date Recorded Sex Assigned at Not on file Legal Sex Female 4:27 AM SPEECH COACH Gender Identity Not on file Sexual Orientation Not on file documented as of this encounter Plan of Treatment Not on file documented as of this encounter Visit Diagnoses Not on filedocumented in this encounter
--- OUTSIDE RECORDS SUMMARY | 2025-06-15 14:46 | XMS_ITS | Encounter Summary ---
Author Organization [facility] Address [address] [place] [address] Care Team Providers Care Baggage Handler Name Role Phone Unavailable Primary Care Provider Unavailabl e Encounter Details Date Type Department Care Team (Late st Contact Info) Description 12/26/1998 Outpatient Historical HIS MD Ld VO Jorge A, MD [address] [facility] [address] [place] [address] Social History Tobacco Use Types Packs/Day Years Used Date Smoking Tobacco: Never Assessed Comments Unknown Sex and Gender Information Value Date Recorded Sex Assigned at Not on file Legal Sex Female 4:27 AM BID WRITER Gender Identity Not on file Sexual Orientation Not on file documented as of this encounter Plan of Treatment Not on file documented as of this encounter Visit Diagnoses Not on filedocumented in this encounter
--- OUTSIDE RECORDS SUMMARY | 2025-06-15 14:46 | XMS_ITS | Encounter Summary ---
Author Organization [facility] Address [address] [place] [address] Care Team Providers Care Mid Level Game Designer Name Role Phone Unavailable Primary Care Provider Unavailabl e Encounter Details Date Type Department Care Team (Late st Contact Info) Description 02/08/1999 Outpatient Historical HIS MD Ld VO Jorge A, MD [address] [facility] [address] [place] [address] Social History Tobacco Use Types Packs/Day Years Used Date Smoking Tobacco: Never Assessed Comments Unknown Sex and Gender Information Value Date Recorded Sex Assigned at Not on file Legal Sex Female 4:27 AM WOOD BOX MAKER Gender Identity Not on file Sexual Orientation Not on file documented as of this encounter Plan of Treatment Not on file documented as of this encounter Visit Diagnoses Not on filedocumented in this encounter
--- OUTSIDE RECORDS SUMMARY | 2025-06-15 14:46 | XMS_ITS | Encounter Summary ---
Author Organization [facility] Address [address] [place] [address] Care Team Providers Care Lay Out Carpenter Name Role Phone Unavailable Primary Care Provider Unavailabl e Encounter Details Date Type Department Care Team (Late st Contact Info) Description 01/02/1999 Outpatient Historical HIS MD Ld VO Jorge A, MD [address] [facility] [address] [place] [address] Social History Tobacco Use Types Packs/Day Years Used Date Smoking Tobacco: Never Assessed Comments Unknown Sex and Gender Information Value Date Recorded Sex Assigned at Not on file Legal Sex Female 4:27 AM WIRE STEWARD Gender Identity Not on file Sexual Orientation Not on file documented as of this encounter Plan of Treatment Not on file documented as of this encounter Visit Diagnoses Not on filedocumented in this encounter
--- OUTSIDE RECORDS SUMMARY | 2025-06-15 14:46 | XMS_ITS | Encounter Summary ---
Author Organization [facility] Address [address] [place] [address] Care Team Providers Care Information Security Analyst Name Role Phone Unavailable Primary Care Provider Unavailabl e Encounter Details Date Type Department Care Team (Late st Contact Info) Description 02/13/1999 Outpatient Historical HIS MD Ld VO Jorge A, MD [address] [facility] [address] [place] [address] Social History Tobacco Use Types Packs/Day Years Used Date Smoking Tobacco: Never Assessed Comments Unknown Sex and Gender Information Value Date Recorded Sex Assigned at Not on file Legal Sex Female 4:27 AM BUTTER GRADER Gender Identity Not on file Sexual Orientation Not on file documented as of this encounter Plan of Treatment Not on file documented as of this encounter Visit Diagnoses Not on filedocumented in this encounter
--- OUTSIDE RECORDS SUMMARY | 2025-06-15 14:46 | XMS_ITS | Encounter Summary ---
Author Organization [facility] Address [address] [place] [address] Care Team Providers Care Janitor Custodian Name Role Phone Unavailable Primary Care Provider Unavailabl e Encounter Details Date Type Department Care Team (Late st Contact Info) Description 02/28/1999 Outpatient Historical HIS MD Ld VO Jorge A, MD [address] [facility] [address] [place] [address] Social History Tobacco Use Types Packs/Day Years Used Date Smoking Tobacco: Never Assessed Comments Unknown Sex and Gender Information Value Date Recorded Sex Assigned at Not on file Legal Sex Female 4:27 AM AUTOMOTIVE MANUFACTURER Gender Identity Not on file Sexual Orientation Not on file documented as of this encounter Plan of Treatment Not on file documented as of this encounter Visit Diagnoses Not on filedocumented in this encounter
--- OUTSIDE RECORDS SUMMARY | 2025-06-15 14:46 | XMS_ITS | Encounter Summary ---
Author Organization [facility] Address [address] [place] [address] Care Team Providers Care Revival Clerk Name Role Phone Unavailable Primary Care Provider Unavailabl e Encounter Details Date Type Department Care Team (Late st Contact Info) Description 03/20/1999 Outpatient Historical HIS MD Ld VO Jorge A, MD [address] [facility] [address] [place] [address] Social History Tobacco Use Types Packs/Day Years Used Date Smoking Tobacco: Never Assessed Comments Unknown Sex and Gender Information Value Date Recorded Sex Assigned at Not on file Legal Sex Female 4:27 AM DIE CAST TECHNICIAN Gender Identity Not on file Sexual Orientation Not on file documented as of this encounter Plan of Treatment Not on file documented as of this encounter Visit Diagnoses Not on filedocumented in this encounter
--- OUTSIDE RECORDS SUMMARY | 2025-06-15 14:46 | XMS_ITS | Encounter Summary ---
Author Organization [facility] Address [address] [place] [address] Care Team Providers Care Parcel Post Order Clerk Name Role Phone Unavailable Primary Care Provider Unavailabl e Encounter Details Date Type Department Care Team (Late st Contact Info) Description 03/20/1999 Outpatient Historical HIS MD Ld VO Jorge A, MD [address] [facility] [address] [place] [address] Social History Tobacco Use Types Packs/Day Years Used Date Smoking Tobacco: Never Assessed Comments Unknown Sex and Gender Information Value Date Recorded Sex Assigned at Not on file Legal Sex Female 4:27 AM RN LPN CNA Gender Identity Not on file Sexual Orientation Not on file documented as of this encounter Plan of Treatment Not on file documented as of this encounter Visit Diagnoses Not on filedocumented in this encounter
--- OUTSIDE RECORDS SUMMARY | 2025-06-15 14:46 | XMS_ITS | Encounter Summary ---
Author Organization [facility] Address [address] [place] [address] Care Team Providers Care Certified Indoor Environmentalist Name Role Phone Unavailable Primary Care Provider Unavailabl e Encounter Details Date Type Department Care Team (Late st Contact Info) Description 02/08/1999 Outpatient Historical HIS MD Ld VO Jorge A, MD [address] [facility] [address] [place] [address] Social History Tobacco Use Types Packs/Day Years Used Date Smoking Tobacco: Never Assessed Comments Unknown Sex and Gender Information Value Date Recorded Sex Assigned at Not on file Legal Sex Female 4:27 AM TOBACCO FARMWORKER Gender Identity Not on file Sexual Orientation Not on file documented as of this encounter Plan of Treatment Not on file documented as of this encounter Visit Diagnoses Not on filedocumented in this encounter
--- OUTSIDE RECORDS SUMMARY | 2025-06-15 14:46 | XMS_ITS | Encounter Summary ---
Author Organization [facility] Address [address] [place] [address] Care Team Providers Care Pipeline Controller Name Role Phone Unavailable Primary Care Provider Unavailabl e Encounter Details Date Type Department Care Team (Late st Contact Info) Description 02/22/1999 Outpatient Historical HIS MD Ld VO Jorge A, MD [address] [facility] [address] [place] [address] Social History Tobacco Use Types Packs/Day Years Used Date Smoking Tobacco: Never Assessed Comments Unknown Sex and Gender Information Value Date Recorded Sex Assigned at Not on file Legal Sex Female 4:27 AM SENIOR SHIPPING CLERK Gender Identity Not on file Sexual Orientation Not on file documented as of this encounter Plan of Treatment Not on file documented as of this encounter Visit Diagnoses Not on filedocumented in this encounter
--- OUTSIDE RECORDS SUMMARY | 2025-06-15 14:46 | XMS_ITS | Encounter Summary ---
Author Organization [facility] Address [address] [place] [address] Care Team Providers Care Pharmaceutical Salesperson Name Role Phone Unavailable Primary Care Provider Unavailabl e Encounter Details Date Type Department Care Team (Late st Contact Info) Description 11/03/1998 Outpatient Historical HIS MD Ld VO Jorge A, MD [address] [facility] [address] [place] [address] Social History Tobacco Use Types Packs/Day Years Used Date Smoking Tobacco: Never Assessed Comments Unknown Sex and Gender Information Value Date Recorded Sex Assigned at Not on file Legal Sex Female 4:27 AM SCREEN PRINTING MACHINE LOADER UNLOADER Gender Identity Not on file Sexual Orientation Not on file documented as of this encounter Plan of Treatment Not on file documented as of this encounter Visit Diagnoses Not on filedocumented in this encounter
--- OUTSIDE RECORDS SUMMARY | 2025-06-15 14:46 | XMS_ITS | Encounter Summary ---
Author Organization [facility] Address [address] [place] [address] Care Team Providers Care Biodiesel Technology Manager Name Role Phone Unavailable Primary Care Provider Unavailabl e Encounter Details Date Type Department Care Team (Late st Contact Info) Description 11/03/1998 Outpatient Historical HIS MD Ld VO Jorge A, MD [address] [facility] [address] [place] [address] Social History Tobacco Use Types Packs/Day Years Used Date Smoking Tobacco: Never Assessed Comments Unknown Sex and Gender Information Value Date Recorded Sex Assigned at Not on file Legal Sex Female 4:27 AM FLUE DUST LABORER Gender Identity Not on file Sexual Orientation Not on file documented as of this encounter Plan of Treatment Not on file documented as of this encounter Visit Diagnoses Not on filedocumented in this encounter
--- OUTSIDE RECORDS SUMMARY | 2025-06-15 14:46 | XMS_ITS | Encounter Summary ---
Author Organization [facility] Address [address] [place] [address] Care Team Providers Care Professional Nurse Name Role Phone Unavailable Primary Care Provider Unavailabl e Encounter Details Date Type Department Care Team (Late st Contact Info) Description 03/20/1999 Outpatient Historical HIS MD Ld VO Jorge A, MD [address] [facility] [address] [place] [address] Social History Tobacco Use Types Packs/Day Years Used Date Smoking Tobacco: Never Assessed Comments Unknown Sex and Gender Information Value Date Recorded Sex Assigned at Not on file Legal Sex Female 4:27 AM TRANSFORMER BUILDER Gender Identity Not on file Sexual Orientation Not on file documented as of this encounter Plan of Treatment Not on file documented as of this encounter Visit Diagnoses Not on filedocumented in this encounter
--- OUTSIDE RECORDS SUMMARY | 2025-06-15 14:46 | XMS_ITS | Encounter Summary ---
Author Organization [facility] Address [address] [place] [address] Care Team Providers Care Computer Information Systems Instructor Name Role Phone Unavailable Primary Care Provider Unavailabl e Encounter Details Date Type Department Care Team (Late st Contact Info) Description 02/08/1999 Outpatient Historical HIS MD Ld VO Jorge A, MD [address] [facility] [address] [place] [address] Social History Tobacco Use Types Packs/Day Years Used Date Smoking Tobacco: Never Assessed Comments Unknown Sex and Gender Information Value Date Recorded Sex Assigned at Not on file Legal Sex Female 4:27 AM PLANT SECURITY GUARD Gender Identity Not on file Sexual Orientation Not on file documented as of this encounter Plan of Treatment Not on file documented as of this encounter Visit Diagnoses Not on filedocumented in this encounter
--- OUTSIDE RECORDS SUMMARY | 2025-06-15 14:46 | XMS_ITS | Encounter Summary ---
Author Organization [facility] Address [address] [place] [address] Care Team Providers Care Counter Hop Name Role Phone Unavailable Primary Care Provider Unavailabl e Encounter Details Date Type Department Care Team (Late st Contact Info) Description 02/24/1999 Outpatient Historical HIS MD Ld VO Jorge A, MD [address] [facility] [address] [place] [address] Social History Tobacco Use Types Packs/Day Years Used Date Smoking Tobacco: Never Assessed Comments Unknown Sex and Gender Information Value Date Recorded Sex Assigned at Not on file Legal Sex Female 4:27 AM INTERMODAL DISPATCHER Gender Identity Not on file Sexual Orientation Not on file documented as of this encounter Plan of Treatment Not on file documented as of this encounter Visit Diagnoses Not on filedocumented in this encounter
--- OUTSIDE RECORDS SUMMARY | 2025-06-15 14:47 | XMS_ITS | Clinical Summary ---
Author Organization [facility] Address [address] [place] [address] Care Team Providers Care Vendor Management Consultant Name Role Phone Amado Juan MD Primary Care Provider Unavail able Source Comments [facility],non-owned Affiliates and Associated Physician Practices is amultiple site organization consisting of ambulatory clinics and hospital sitesin [place], [place], [place] and [place]. This disclosure is being madepursuant to the Care Everywhere program and may not contain all information available regarding this patient. Last updated 18.[facility] Allergies Active Allergy Reactions Criticality Noted Date [...] on file Legal Sex Female 5:37 AM LEAD AUDITOR Gender Identity Not on file Sexual [...] CREATININE 04/19/20202018, 06/02/2018, 05/16/2017, Additional history exists DEPRESSION SCREENING 10/06/2024 DIABETES - URINE PROTEIN SCREENING 10/06/2024 COVID-19 VACCINE (1 - season) 2025 INFLUENZA VACCINE (#1) 2025 08/05/2019 Respiratory Syncytial [...] approximately 13% higher for people identified as -[place]amo[place]. eGFR by MDRD 95 > OR = [...] FEE 2ND ORDER FASTING:YES Test Performed at: [facility] [id number] [id number] NITIN INFANTE DO,MPH 04/19/2019 9:59 AM CDT 04/19/2019 10:00 AM CDT us Aimauro Dsouza MD LAB - CHEMISTRY ORDERABLES Fi nal Result [facility] [address] [place] [address] from Last 3 Months or Most Recently Relevant to Health Maintenance Insurance MEDICARE [facility] MEDICARE Care Teams Vendor Management Consultant Relationship Specialty Start Date End Date Amado Juan MD PCP - General 03/17/18
[2025-06-15 18:59] LABS: INR 1.1; Prothrombin Time 14.8 Seconds (11.1-14.7)
[2025-06-15 19:00] LABS: Partial Thromboplastin Time 30.9 Seconds (22.3-36.8)
[2025-06-15 19:11] LABS: Anion Gap 9 mmol/L (4-12); Blood Urea Nitrogen 16 mg/dL (7-17); Calcium 9.2 mg/dL (8.4-10.2); Carbon Dioxide 30 mmol/L (22-30); Chloride 94 mmol/L (98-107); Estimated Glomerular Filt Rate 57; Glucose 108 mg/dL (65-110); Potassium 4.2 mmol/L (3.4-5.0); Sodium 133 mmol/L (137-145)
== END 2025-06-15 14:12 | disposition home or self-care (01) ==
LOC: ANHGOSHLAB 14:12
PROVIDERS: PCP Nurse Practitioner Family; Visit Provider Anesthesiology
DX: K76.9 Liver disease, unspecified (principal); E11.9 Type 2 diabetes mellitus without complications
CPT/HCPCS: 36415; 80048; 85610; 85730

== ENCOUNTER 2025-06-27 00:29 | Day surgery (SDC) | payer OTHER, MEDICARE, SELFPAY ==
[2025-06-14 15:16] VITALS: BMI 30.4
--- NOTE | 2025-06-14 15:29 | PC.NURSE ---
Report to the Outpatient Waiting Room, entrance under the green pavilion located off [facility], at time __10:00am on date __06/27/25 . Planned Procedure Time: __12:00pm .? Time changes happen often and if your time is changed the preop area will call you the afternoon before. - You and your visitor will be asked to self-screen and do not enter if you have any COVID symptoms. Please call surgeon if you need to reschedule. - A mask is optional within the hospital at this time. Patients may have clear liquids (water, carbonated beverages, clear teas, apple juice) until 3 hours prior to surgery with a maximum of 20 ounces. - No food from midnight until time of surgery and no smoking, or chewing tobacco (or any form of nicotine). No chewing gum, candy or mints. (0900am) Take only the following medications with a SIP of water on the morning of surgery: _Amlodipine, Wellbutrin, Nadolol, and Sertraline /Antibiotics per Dr Martinez if ordered DO NOT STOP ANY OF YOUR OTHER PRESCRIPTION MEDICATIONS PRIOR TO SURGERY EXCEPT THE FOLLOWING Hold all vitamins and supplements for 3 days per anesthesiologist. Medications to discontinue per physician HOLD Aspirin for [address] Martinez Date to take last dose____06/18/25 Please no make-up, nail mexican, hairspray, perfume, deodorant, or body powder the day of surgery.? No jewelry (including any body piercings) or valuables the day of surgery, leave them at home.? Please take a shower or bath the night before, or the morning of, surgery with an antibacterial soap.? Wear comfortable, loose fitting clothing.? - Jewelry must be removed prior to entering the operating room.? Rings and piercings that are not removed may be cut off. - The hospital will not accept responsibility for valuables.? - Please leave all valuables, including medications, at home the day of surgery. If you are going home after surgery, a licensed courier driver must drive you home.? - NO public transportation without another adult if you receive anesthesia. - We recommend that an adult stay with you for 24 hours following discharge. - We also recommend that you do not drive, make important decision, drink alcoholic beverages, or take any drugs that were not prescribed by your health care provider for at least 24 hours after your discharge time. Follow any additional instructions given to you from your surgeon. Telephone instructions given to __Patient and asked if any additional questions and then verbalized understanding. Patient advised to call surgeon office or pre surgery nurse liaison [phone] if any additional questions.
--- NOTE | 2025-06-26 15:28 | PM.IMHP ---
H&P: HPI History of Present Illness Date/Time: 06/26/25 15:28 Chief Complaint: chronic sinusitis, recurrent sinusitis, septal deviation Narrative: planned surgical procedure Review of Systems Review of Systems: All systems reviewed & are unremarkable except as noted in HPI and below PMFSH Past Medical History Medical History Pure hypercholesterolemia Polyosteoarthritis, unspecified Obesity, unspecified Major depressive disorder, single episode, unspecified Recurrent URI (upper respiratory infection) Liver disease, chronic Seasonal allergies Psoriatic arthritis Anxiety Essential (primary) hypertension GERD without esophagitis Type 2 diabetes mellitus without complication, without long-term current use of insulin Psoriasis Fibromyalgia Depression Surgical History Surgical History History of ovarian cystectomy chocolate cyst History of hysterectomy (Unknown) History of hernia surgery (Unknown) History of section (~1999) Family History Family History Mother Family history of chronic obstructive pulmonary disease Hypertension Depression Father No problems noted. Grandparent Diabetes mellitus Family history of alcoholism Acute myocardial infarction Depression Heart disease Hypertension Sibling Diabetes mellitus Depression Hypertension Other Cerebrovascular accident neice-drug induced Depression aunt Hypertension aunt Other Family history of arthritis Family history of heart disease in male family member before age 55 Social History Social History Smoking status: Never smoker Tobacco type: cigarettes Second hand tobacco smoke exposure: No Alcohol intake: current Drinks per week: 2 Alcohol use details: consumes beer socially Substance use: never Substance use type: marijuana Other substance usage details: OCCASSIONALLY SMOKES MARIJUANA FOR PAIN RELIEF Lack of Transportation: YES Lack of Food: Never True Current Housing: I Have Housing Concerned About Future Housing: No Difficulty Paying Gas/Electric Bills: Decline to Answer Difficulty Paying for Meds: No Currently Unemployed: No Education: High School Diploma/GED Difficulty w/ Childcare or Family Care: No Living arrangements: with family Additional living arrangements comments: Occupation/Education: other 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 concerns: No Meds Home Medications and Allergies Home Medications ?Medication ?Instructions ?Recorded ?Confirmed ?Type aspirin 81 mg tablet,delayed 81 mg PO DAILY 06/14/21 06/15/25 History release melatonin 10 mg tablet 10 mg PO HS PRN Insomnia 08/12/23 06/15/25 History amlodipine 5 mg tablet 5 mg PO QAM #90 tabs 10/08/24 06/15/25 Rx sertraline 50 mg tablet 50 mg PO DAILY #90 tabs 12/06/24 06/15/25 Rx nadolol 20 mg tablet 40 mg (2 x 20 mg) PO QAM #180 tabs 12/21/24 06/15/25 Rx empagliflozin 25 mg tablet See Rx Instructions .Route 01/31/25 06/15/25 Rx (Jardiance) .COMPLEX #90 tabs valsartan 160 1 tablet PO QAM #90 tabs 01/31/25 06/15/25 Rx mg-hydrochlorothiazide 12.5 mg tablet atorvastatin 10 mg tablet (Lipitor) 10 mg PO DAILY #30 tabs 03/17/25 06/15/25 Rx ondansetron 8 mg disintegrating 8 mg PO Q8H PRN nausea and 03/18/25 06/15/25 Rx tablet vomiting #15 tabs deucravacitinib 6 mg tablet 6 mg PO DAILY #30 tabs 03/29/25 06/15/25 Rx (Sotyktu) pantoprazole 40 mg tablet,delayed 40 mg PO QAM #90 tabs 05/10/25 06/15/25 Rx release clindamycin HCl 300 mg capsule 300 mg PO Q8H #30 caps 06/07/25 06/15/25 Rx (Cleocin HCl) bupropion HCl 300 mg 24 hr tablet, 300 mg PO QAM #90 tabs 06/09/25 06/15/25 Rx extended release (Wellbutrin XL) glipizide 10 mg tablet, extended 10 mg PO DAILY #90 tabs 06/09/25 06/15/25 Rx release 24 hr semaglutide 2 mg/dose (8 mg/3 mL) 2 mg (0.75 mL) subcut WEEKLY #9 mL 06/13/25 06/15/25 Rx subcutaneous pen injector (Ozempic) Allergies Allergy/AdvReac Type Severity Reaction Status Date / Time No Known Allergies Allergy Verified 06/15/25 14:28 Exam Narrative: disease sinuses chronic appearing sinuses septal deviation Assessment and Plan Assessment and plan (1) Chronic sinusitis: Code(s): J32.9 - Chronic sinusitis, unspecified Status: Acute Assessment and Plan: Plan OR for bilateral image guided endoscopic maxillary antrostomies, total ethmoidectomies, sphenoidotomies, left-sided frontal sinusotomy, possible septoplasty, total operative time 2.5 hours. Risks were discussed bleeding infection damage to surrounding structures need further procedures change in taste changes all damage any structures the clavicle on itself damage to any structure induction and maintenance of anesthesia including vocal cord paralysis. Septal perforation. CSF leak brain brain damage failure to resolve symptoms need further procedures need for prolonged courses of antibiotics. Brain brain damage total blindness change in vision. (2) Nasal crusting: Code(s): J34.89 - Other specified disorders of nose and nasal sinuses Status: Acute (3) Nasal septal deviation: Code(s): J34.2 - Deviated nasal septum Status: Acute
[2025-06-27] VITALS (11 sets, daily range): BP systolic 151–189; BP diastolic 82–97; PULSE 66–76; RESP 12–18; TEMP 36.6–36.8; O2SAT 97–100
[2025-06-27] MEDS: LACTATED RINGERS 1,000 ML 30 ML IV CONT ×2 (11:00→15:15)
--- NOTE | 2025-06-27 11:24 | WPDANESEPPF ---
Anes - Initial Pre Proc Eval Procedure: Operation Date: 06/27/25 12:00 Proposed Procedures p Image Guided Bilateral Maxillary Antrostomy, Bilateral Total Ethmoidectomy, Bilateral Sphenoidotomy, Left Side Frontal Sinusotomy, - Antony Martinez MD s Possible Septoplasty - Antony Martinez MD Date/Time: 06/27/25 11:24 Surgeon: Antony Martinez MD Pre Op Diagnosis: acute sinusitis, chronic max sinusitis, nasal cru Patient Data Age: 64 Gender: F Height: 1.6 m Weight: 78 kg Allergies Allergy/AdvReac Type Severity Reaction Status Date / Time No Known Allergies Allergy Verified 06/15/25 14:28 Home Medications ?Medication ?Instructions ?Recorded ?Confirmed ?Type aspirin 81 mg tablet,delayed 81 mg PO DAILY 06/14/21 06/15/25 History release melatonin 10 mg tablet 10 mg PO HS PRN Insomnia 08/12/23 06/15/25 History amlodipine 5 mg tablet 5 mg PO QAM #90 tabs 10/08/24 06/15/25 Rx sertraline 50 mg tablet 50 mg PO DAILY #90 tabs 12/06/24 06/15/25 Rx nadolol 20 mg tablet 40 mg (2 x 20 mg) PO QAM #180 tabs 12/21/24 06/15/25 Rx empagliflozin 25 mg tablet See Rx Instructions .Route 01/31/25 06/15/25 Rx (Jardiance) .COMPLEX #90 tabs valsartan 160 1 tablet PO QAM #90 tabs 01/31/25 06/15/25 Rx mg-hydrochlorothiazide 12.5 mg tablet atorvastatin 10 mg tablet (Lipitor) 10 mg PO DAILY #30 tabs 03/17/25 06/15/25 Rx ondansetron 8 mg disintegrating 8 mg PO Q8H PRN nausea and 03/18/25 06/15/25 Rx tablet vomiting #15 tabs deucravacitinib 6 mg tablet 6 mg PO DAILY #30 tabs 03/29/25 06/15/25 Rx (Sotyktu) pantoprazole 40 mg tablet,delayed 40 mg PO QAM #90 tabs 05/10/25 06/15/25 Rx release clindamycin HCl 300 mg capsule 300 mg PO Q8H #30 caps 06/07/25 06/15/25 Rx (Cleocin HCl) bupropion HCl 300 mg 24 hr tablet, 300 mg PO QAM #90 tabs 06/09/25 06/15/25 Rx extended release (Wellbutrin XL) glipizide 10 mg tablet, extended 10 mg PO DAILY #90 tabs 06/09/25 06/15/25 Rx release 24 hr semaglutide 2 mg/dose (8 mg/3 mL) 2 mg (0.75 mL) subcut WEEKLY #9 mL 06/13/25 06/15/25 Rx subcutaneous pen injector (Ozempic) Patient hx anesthesia problems: none Family hx anesthesia problems: none Results Review: All pre-operative results and documents have been reviewed as part of the pre-operative evaluation. [facility] Past Medical History Medical History Pure hypercholesterolemia Polyosteoarthritis, unspecified Obesity, unspecified Major depressive disorder, single episode, unspecified Recurrent URI (upper respiratory infection) Liver disease, chronic Seasonal allergies Psoriatic arthritis Anxiety Essential (primary) hypertension GERD without esophagitis Type 2 diabetes mellitus without complication, without long-term current use of insulin Psoriasis Fibromyalgia Depression Surgical History Surgical History History of ovarian cystectomy chocolate cyst History of hysterectomy (Unknown) History of hernia surgery (Unknown) History of section (~1999) Family History Family History Mother Family history of chronic obstructive pulmonary disease Hypertension Depression Father No problems noted. Grandparent Diabetes mellitus Family history of alcoholism Acute myocardial infarction Depression Heart disease Hypertension Sibling Diabetes mellitus Depression Hypertension Other Cerebrovascular accident neice-drug induced Depression aunt Hypertension aunt Other Family history of arthritis Family history of heart disease in male family member before age 55 Social History Social History Smoking status: Never smoker Tobacco type: cigarettes Second hand tobacco smoke exposure: No Alcohol intake: current Drinks per week: 2 Alcohol use details: consumes beer socially Substance use: never Substance use type: marijuana Other substance usage details: OCCASSIONALLY SMOKES MARIJUANA FOR PAIN RELIEF Lack of Transportation: YES Lack of Food: Never True Current Housing: I Have Housing Concerned About Future Housing: No Difficulty Paying Gas/Electric Bills: Decline to Answer Difficulty Paying for Meds: No Currently Unemployed: No Education: High School Diploma/GED Difficulty w/ Childcare or Family Care: No Living arrangements: with family Additional living arrangements comments: Occupation/Education: other 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 concerns: No Anes - Eval Final PreProcedure Day of Procedure 06/27/25 11:24 Patient weight: obese Heart: regular rate and rhythm Lungs: clear to auscultation Airway: Mallampati scale class II Neurological: alert and oriented Last oral intake: >/= 8 hours ASA classification: III Emergent: no Anesthetic plan: proceed Anesthesia type and monitoring: general ETT and standard monitoring Results Review: All pre-operative results and documents have been reviewed as part of the pre-operative evaluation. Informed Consent: The patient's anesthetic plan and its attendant risks and benefits were discussed with the patient/family/POA. Questions were solicited and answers provided to the satisfaction of the patient/family/POA.
[2025-06-27] MEDS: ACETAMINOPHEN 500 MG TABLET 1000 MG PO (11:45)
--- NOTE | 2025-06-27 12:09 | WPDHPUPDATE1 ---
History and Physical Update Update Date/Time: 06/27/25 12:09 History and Physical has been reviewed, including an updated exam of the patient. There are NO changes in the patient's condition. Risks, benefits, and alternatives have been discussed and questions answered. Patient agrees to proceed with procedure.
[2025-06-27] MEDS: ceFAZolin 2 GM in SODIUM CHLORIDE 0.9% IV 50 ML 100 ML IVPB (12:17)
[2025-06-27] MEDS: OXYMETAZOLINE HCL 0.05% NAS 15 ML BTL (*BKC) 1 SPRAY NASAL (12:32)
[2025-06-27] MEDS: LIDO 1%/EPINEPHRINE 1:100,000 50 ML VIAL INFILTRATE (12:32)
[2025-06-27] MEDS: TOBRAMYCIN SULFATE 80 MG/2 ML VIAL 400 MG IRRIGATION (12:38)
--- NOTE | 2025-06-27 13:06 | S_PTH ---
PATIENT: Eva Bergman LOC: [facility], [place] U#:[id number] AGE/SX: 64/F ROOM: RE06/27/[address]: Antony Martinez MD : 1960 BED: DIS: 06/27/2025 SPEC #: [id number] RECD: 06/28/25 07:25 STATUS: DARY RETrent #: [id number] MOSES: 06/27/25 13:[address]: Antony Martinez DEPT: [facility] Surgical RECD BY: Maggie Hooker ENTERED: 06/28/25 07:26 SP TYPE: Surgical OTHR DR: Laly Salas APRN Tissues: A - Sinus Contents Procedures: Hematoxylin and Eosin Stain Gross and Microscopic Level 4
[2025-06-27] MEDS: TRIAMCINOLONE ACET INJ 40 MG/ML VIAL XX (14:04)
[2025-06-27] MEDS: MUPIROCIN 2% OINT 22 GM TUBE 1 APPLIC TOPICAL (14:42)
[2025-06-27] MEDS: fentaNYL CITRATE INJ (*CRX) 100 MCG/2 ML VIAL 25 MCG IV PUSH ×3 (15:37→15:50)
--- NOTE | 2025-06-27 15:38 | W.PM.PROC2 ---
Procedure Note - Detailed Date of Procedure 06/27/25 Pre-op Diagnosis acute sinusitis, chronic sinusitis, septal deviation Post-op Diagnosis Same Procedure Performed 1. Endoscopic assisted septoplasty 2. Bilateral image guided maxillary antrostomies endoscopic 3. Bilateral image guided total ethmoidectomies endoscopic 4. Bilateral image guided endoscopic sphenoidotomies 5. Left image guided endoscopic frontal sinusotomy with vectra placement Surgeon Antony Martinez MD Anesthesia General Indications See above Findings Severely disease sinuses although her cellulitic good edematous inflamed tissue nasal polyps were present. Right had fungus in it as well the right maxillary sinus. Was able to cannulate both frontal sinuses by both them in both portions of the left frontal. Vectra placed. Description of Procedure Patient identified consent verified in the preoperative holding area. Patient brought to the operating room. Time-out performed. General anesthesia induced endotracheal tube secured. Patient prepped draped position procedure confirmed 2nd time-out performed. Image guidance initiated confirmed. 0 degree scope utilized for the majority of the procedure as well as image guidance throughout the entire procedure. Total 15 cc injected in bilateral nasal septum. Left-sided [place] incision made. Left nasal septal flap elevated with 7 Welsh suction no tears osteotome utilized to cross to the septum right nasal septal flap elevated with no tears. Sub septum irrigated out closed with 3 interrupted 5 0 fast gut sutures. Bilateral maxillary antrostomies performed double ball tip probe image guidance microdebrider straight through cutter and backbiter. Ethmoidectomies performed with image guidance microdebrider which was also image guided Kerr[place] straight through cut. Great care was taken to ensure all the cells were opened all the edematous inflamed tissue was removed all the purulence was suctioned out and cultured. Sphenoidotomies performed bilaterally which image guidance sphenoid punch and Kerrison great care was taken to not injure any adjacent structures. Left frontal performed with image guidance 70 degree scope Cobra Hosemann and frontal seeker to open the adjacent left frontal sinus portion. All purulence was cultured. Wounds copiously irrigated out with sterile normal saline infused with tobramycin. Right fungal ball removed from the maxillary sinus. Wounds copiously irrigated. Echavarria splints placed sutured anteriorly with 3-0 mattress nylon suture. Great care taken ensured the Echavarria splint was lateral to the right middle turbinate. Nova pack was also placed bilaterally. An infused with tobramycin sterile normal saline. Total blood loss 35 cc. I performed all dictated portions procedure no complications. Patient was taken to PACU care the patient given back to Anesthesiology. Tissue was also sent to test for ciliary dyskinesia. Estimated Blood Loss 35 Drains No Packing Yes (novapak) Pathology Yes Complications No immediate complications Condition Stable Disposition PACU [facility] Billing Surgery - Charge Forward: Surgery Billing
[2025-06-27] MEDS: oxyCODONE HCL (*CRX) 5 MG TAB IR PO (16:53)
--- NOTE | 2025-06-27 17:14 | SUR.PHASEII ---
BROUGHT PATIENT'S BLOOD PRESSURE MEDS FROM HOME; PATIENT HADN'T TAKEN THEM THIS AM SO SHE TOOK THEM NOW.
--- NOTE | 2025-06-27 17:27 | SUR.PHASEII ---
2 X 2'S AND PAPER TAPE GIVEN TO PATIENT.
== END 2025-06-27 17:29 | disposition home or self-care (01) ==
PROVIDERS: PCP Nurse Practitioner Family; Visit Provider Otolaryngology
PROC: (CPT 31256; principal; 2025-06-27 12:00)
PROC: (CPT 30520; 2025-06-27 12:00)
DX: J32.9 Chronic sinusitis, unspecified (principal); J34.2 Deviated nasal septum; J33.9 Nasal polyp, unspecified; B48.8 Other specified mycoses; J34.89 Other specified disorders of nose and nasal sinuses; E11.9 Type 2 diabetes mellitus without complications; F12.90 Cannabis use, unspecified, uncomplicated; E66.9 Obesity, unspecified; Z68.30 Body mass index [BMI] 30.0-30.9, adult
CPT/HCPCS: 31256; 31257; 31276; 61782; 30520; 82948; 87070; 87075; 87205; 88305; J0690; A9270; J1100; J2003; J2004; J2250; J2405; J2704; J3010; J3260; J3301; J7050; J7120

== ENCOUNTER 2025-08-17 08:18 | Outpatient (NON) | payer OTHER, MEDICARE, SELFPAY ==
--- OUTSIDE RECORDS SUMMARY | 1999-08-07 07:45 | XMS_ITS | Continuity of Care Document ---
Author Organization [facility] Address [address] [place] [address] Phone Care Team Providers Care Hire Car Driver Name Role Phone Kain Tellez Unavailable Unavailable Advance Directives Directive Yes / No Effective Date File Name No Information Encounters Encounter Description Practice Location Reason(s) For Visit Diagnoses Date Provider Providers Copied on Encounter [facility], [address], [place], [place], [id number], [place] tel:[phone] [facility] No Information 2-199 9 Doisy Edward. [address] , [address], [place], [address], [place]. tel:[phone] Family History Family Member Type Diagnosis Age At Onset No Information Payers Payer name Insurance type Covered constitution party ID Authoriza tion(s) No Information Social History Type Description Quantity Date Captured Comments Sex Female Smoking Status No Information Chief Complaint And Reason For Visit No Information Reason For Referral Reason For Referral No Information History Of Present Illness Encounter Date Complaint History Of Prese nt Illness No Information Functional Status Date Functional Assessmen t No Information Instructions Date Instruction Additional Infor mation No Information Assessments Type Assessment Date No Information Patient Care Teams Name Effective Dates (start - stop) Status Members No Information
--- OUTSIDE RECORDS SUMMARY | 2025-08-17 08:25 | XMS_ITS | Encounter Summary ---
Author Organization [facility] Address 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
--- OUTSIDE RECORDS SUMMARY | 2025-08-17 08:25 | XMS_ITS | Encounter Summary ---
Author Organization [facility] Address [address] [place] [address] Care Team Providers Care Manager Therapy Name Role Phone Unavailable Primary Care Provider Unavailabl e Encounter Details Date Type Department Care Team (Late st Contact Info) Description 01/25/1999 Outpatient Historical HIS MD Ld VO Jorge A, MD [address] [facility] [address] [place] [address] Social History Tobacco Use Types Packs/Day Years Used Date Smoking Tobacco: Never Assessed Comments Unknown Sex and Gender Information Value Date Recorded Sex Assigned at Not on file Legal Sex Female 4:27 AM MOLASSES PREPARER Gender Identity Not on file Sexual Orientation Not on file documented as of this encounter Plan of Treatment Not on file documented as of this encounter Visit Diagnoses Not on filedocumented in this encounter
--- OUTSIDE RECORDS SUMMARY | 2025-08-17 08:25 | XMS_ITS | Encounter Summary ---
Author Organization [facility] Address 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
--- OUTSIDE RECORDS SUMMARY | 2025-08-17 08:25 | XMS_ITS | Encounter Summary ---
Author Organization [facility] Address [address] [place] [address] Care Team Providers Care Resource Efficiency Manager Name Role Phone Unavailable Primary Care Provider Unavailabl e Encounter Details Date Type Department Care Team (Late st Contact Info) Description 12/26/1998 Outpatient Historical HIS MD Ld VO Jorge A, MD [address] [facility] [address] [place] [address] Social History Tobacco Use Types Packs/Day Years Used Date Smoking Tobacco: Never Assessed Comments Unknown Sex and Gender Information Value Date Recorded Sex Assigned at Not on file Legal Sex Female 4:27 AM LEATHER SPONGER Gender Identity Not on file Sexual Orientation Not on file documented as of this encounter Plan of Treatment Not on file documented as of this encounter Visit Diagnoses Not on filedocumented in this encounter
--- OUTSIDE RECORDS SUMMARY | 2025-08-17 08:25 | XMS_ITS | Encounter Summary ---
Author Organization [facility] Address [address] [place] [address] Care Team Providers Care Sealer Sander Name Role Phone Unavailable Primary Care Provider Unavailabl e Encounter Details Date Type Department Care Team (Late st Contact Info) Description 02/08/1999 Outpatient Historical HIS MD Ld VO Jorge A, MD [address] [facility] [address] [place] [address] Social History Tobacco Use Types Packs/Day Years Used Date Smoking Tobacco: Never Assessed Comments Unknown Sex and Gender Information Value Date Recorded Sex Assigned at Not on file Legal Sex Female 4:27 AM MANAGER PAYMENT Gender Identity Not on file Sexual Orientation Not on file documented as of this encounter Plan of Treatment Not on file documented as of this encounter Visit Diagnoses Not on filedocumented in this encounter
--- OUTSIDE RECORDS SUMMARY | 2025-08-17 08:25 | XMS_ITS | Encounter Summary ---
Author Organization [facility] Address 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
--- OUTSIDE RECORDS SUMMARY | 2025-08-17 08:25 | XMS_ITS | Encounter Summary ---
Author Organization [facility] Address [address] [place] [address] Care Team Providers Care Section Laborer Name Role Phone Unavailable Primary Care Provider Unavailabl e Encounter Details Date Type Department Care Team (Late st Contact Info) Description 01/02/1999 Outpatient Historical HIS MD Ld VO Jorge A, MD [address] [facility] [address] [place] [address] Social History Tobacco Use Types Packs/Day Years Used Date Smoking Tobacco: Never Assessed Comments Unknown Sex and Gender Information Value Date Recorded Sex Assigned at Not on file Legal Sex Female 4:27 AM SENIOR ESTIMATOR Gender Identity Not on file Sexual Orientation Not on file documented as of this encounter Plan of Treatment Not on file documented as of this encounter Visit Diagnoses Not on filedocumented in this encounter
--- OUTSIDE RECORDS SUMMARY | 2025-08-17 08:25 | XMS_ITS | Encounter Summary ---
Author Organization [facility] Address [address] [place] [address] Care Team Providers Care Culinary Art Teacher Name Role Phone Unavailable Primary Care Provider Unavailabl e Encounter Details Date Type Department Care Team (Late st Contact Info) Description 02/08/1999 Outpatient Historical HIS MD Ld VO Jorge A, MD [address] [facility] [address] [place] [address] Social History Tobacco Use Types Packs/Day Years Used Date Smoking Tobacco: Never Assessed Comments Unknown Sex and Gender Information Value Date Recorded Sex Assigned at Not on file Legal Sex Female 4:27 AM AUTO DESIGN CHECKER Gender Identity Not on file Sexual Orientation Not on file documented as of this encounter Plan of Treatment Not on file documented as of this encounter Visit Diagnoses Not on filedocumented in this encounter
--- OUTSIDE RECORDS SUMMARY | 2025-08-17 08:25 | XMS_ITS | Encounter Summary ---
Author Organization [facility] Address [address] [place] [address] Care Team Providers Care Stave Log Cut Off Saw Operator Name Role Phone Unavailable Primary Care Provider Unavailabl e Encounter Details Date Type Department Care Team (Late st Contact Info) Description 02/08/1999 Outpatient Historical HIS MD Ld VO Jorge A, MD [address] [facility] [address] [place] [address] Social History Tobacco Use Types Packs/Day Years Used Date Smoking Tobacco: Never Assessed Comments Unknown Sex and Gender Information Value Date Recorded Sex Assigned at Not on file Legal Sex Female 4:27 AM SEAFOOD FARMER Gender Identity Not on file Sexual Orientation Not on file documented as of this encounter Plan of Treatment Not on file documented as of this encounter Visit Diagnoses Not on filedocumented in this encounter
--- OUTSIDE RECORDS SUMMARY | 2025-08-17 08:25 | XMS_ITS | Encounter Summary ---
Author Organization [facility] Address [address] [place] [address] Care Team Providers Care Email Production Specialist Name Role Phone Unavailable Primary Care Provider Unavailabl e Encounter Details Date Type Department Care Team (Late st Contact Info) Description 11/03/1998 Outpatient Historical HIS MD Ld VO Jorge A, MD [address] [facility] [address] [place] [address] Social History Tobacco Use Types Packs/Day Years Used Date Smoking Tobacco: Never Assessed Comments Unknown Sex and Gender Information Value Date Recorded Sex Assigned at Not on file Legal Sex Female 4:27 AM PILOT PLANT SUPERVISOR Gender Identity Not on file Sexual Orientation Not on file documented as of this encounter Plan of Treatment Not on file documented as of this encounter Visit Diagnoses Not on filedocumented in this encounter
--- OUTSIDE RECORDS SUMMARY | 2025-08-17 08:25 | XMS_ITS | Encounter Summary ---
Author Organization [facility] Address [address] [place] [address] Care Team Providers Care Rotary Driller Name Role Phone Unavailable Primary Care Provider Unavailabl e Encounter Details Date Type Department Care Team (Late st Contact Info) Description 03/20/1999 Outpatient Historical HIS MD Ld VO Jorge A, MD [address] [facility] [address] [place] [address] Social History Tobacco Use Types Packs/Day Years Used Date Smoking Tobacco: Never Assessed Comments Unknown Sex and Gender Information Value Date Recorded Sex Assigned at Not on file Legal Sex Female 4:27 AM SYSTEMS PROGRAMMER Gender Identity Not on file Sexual Orientation Not on file documented as of this encounter Plan of Treatment Not on file documented as of this encounter Visit Diagnoses Not on filedocumented in this encounter
--- OUTSIDE RECORDS SUMMARY | 2025-08-17 08:26 | XMS_ITS | Encounter Summary ---
Author Organization [facility] Address [address] [place] [address] Care Team Providers Care Breast Puller Name Role Phone Unavailable Primary Care Provider Unavailabl e Encounter Details Date Type Department Care Team (Late st Contact Info) Description 05/19/1999 Outpatient Historical HIS MD Ld VO Jorge A, MD [address] [facility] [address] [place] [address] Social History Tobacco Use Types Packs/Day Years Used Date Smoking Tobacco: Never Assessed Comments Unknown Sex and Gender Information Value Date Recorded Sex Assigned at Not on file Legal Sex Female 4:27 AM DRENCHER Gender Identity Not on file Sexual Orientation Not on file documented as of this encounter Plan of Treatment Not on file documented as of this encounter Visit Diagnoses Not on filedocumented in this encounter
--- OUTSIDE RECORDS SUMMARY | 2025-08-17 08:26 | XMS_ITS | Encounter Summary ---
Author Organization [facility] Address [address] [place] [address] Care Team Providers Care Bait Man Name Role Phone Unavailable Primary Care Provider Unavailabl e Encounter Details Date Type Department Care Team (Late st Contact Info) Description 02/22/1999 Outpatient Historical HIS MD Ld VO Jorge A, MD [address] [facility] [address] [place] [address] Social History Tobacco Use Types Packs/Day Years Used Date Smoking Tobacco: Never Assessed Comments Unknown Sex and Gender Information Value Date Recorded Sex Assigned at Not on file Legal Sex Female 4:27 AM OPTICIAN MANAGER Gender Identity Not on file Sexual Orientation Not on file documented as of this encounter Plan of Treatment Not on file documented as of this encounter Visit Diagnoses Not on filedocumented in this encounter
--- OUTSIDE RECORDS SUMMARY | 2025-08-17 08:26 | XMS_ITS | Encounter Summary ---
Author Organization [facility] Address [address] [place] [address] Care Team Providers Care Aircraft Mechanic Electrical And Radio Name Role Phone Unavailable Primary Care Provider Unavailabl e Encounter Details Date Type Department Care Team (Late st Contact Info) Description 02/28/1999 Outpatient Historical HIS MD Ld VO Jorge A, MD [address] [facility] [address] [place] [address] Social History Tobacco Use Types Packs/Day Years Used Date Smoking Tobacco: Never Assessed Comments Unknown Sex and Gender Information Value Date Recorded Sex Assigned at Not on file Legal Sex Female 4:27 AM LICENSED AIRCRAFT MAINTENANCE ENGINEER Gender Identity Not on file Sexual Orientation Not on file documented as of this encounter Plan of Treatment Not on file documented as of this encounter Visit Diagnoses Not on filedocumented in this encounter
--- OUTSIDE RECORDS SUMMARY | 2025-08-17 08:26 | XMS_ITS | Clinical Summary ---
Author Organization [facility] Address [address] [place]: Epic Prelude [place]T [place] [address] Care Team Providers Care Bankruptcy Judge Name Role Phone Unavailable Primary Care Provider Unavailabl e Social History Tobacco Use Types Packs/Day Years Used Date Smoking Tobacco: Never Assessed Comments Unknown Sex and Gender Information Value Date Recorded Sex Assigned at Not on file Legal Sex Female 4:27 AM SOLAR DESIGNER Gender Identity Not on file Sexual [...]
--- OUTSIDE RECORDS SUMMARY | 2025-08-17 08:26 | XMS_ITS | Encounter Summary ---
Author Organization [facility] Address [address] [place] [address] Care Team Providers Care Neurology Stroke Physician Name Role Phone Unavailable Primary Care Provider Unavailabl e Encounter Details Date Type Department Care Team (Late st Contact Info) Description 02/26/1999 Outpatient Historical HIS MD Ld VO Jorge A, MD [address] [facility] [address] [place] [address] Social History Tobacco Use Types Packs/Day Years Used Date Smoking Tobacco: Never Assessed Comments Unknown Sex and Gender Information Value Date Recorded Sex Assigned at Not on file Legal Sex Female 4:27 AM CASH POSTER Gender Identity Not on file Sexual Orientation Not on file documented as of this encounter Plan of Treatment Not on file documented as of this encounter Visit Diagnoses Not on filedocumented in this encounter
--- OUTSIDE RECORDS SUMMARY | 2025-08-17 08:26 | XMS_ITS | Encounter Summary ---
Author Organization [facility] Address 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
--- OUTSIDE RECORDS SUMMARY | 2025-08-17 08:26 | XMS_ITS | Encounter Summary ---
Author Organization [facility] Address 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
--- OUTSIDE RECORDS SUMMARY | 2025-08-17 08:26 | XMS_ITS | Encounter Summary ---
Author Organization [facility] Address 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
--- OUTSIDE RECORDS SUMMARY | 2025-08-17 08:26 | XMS_ITS | Clinical Summary ---
Author Organization [facility] Address [address] [place] [address] Care Team Providers Care Early Childhood Specialist Name Role Phone Amado Juan MD Primary Care Provider Unavail able Source Comments [facility],non-owned Affiliates and Associated Physician Practices is amultiple site organization consisting of ambulatory clinics and hospital sitesin [place], [place], [place] and [place]. This disclosure is being madepursuant to the Care Everywhere program and may not contain all information available regarding this patient. 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 eGFR by MDRD 95 > OR = [...] FEE 2ND ORDER FASTING:YES Test Performed at: [facility] [address] [place] [address] NITIN INFANTE DO,MPH 04/19/2019 9:59 AM CDT 04/19/2019 10:00 AM [facility] - CHEMISTRY ORDERABLES Fi nal Result Performing Organization Address City/State/[facility] Co de Phone Number [facility] [address] [place] [address] from Last 3 Months or Most Recently Relevant to Health Maintenance Insurance [facility]ICARE [facility] MEDICARE [employer] SELF PAY NO INSURANCE Member Subscriber Plan / Payer (Ef fective for All Dates) Name:MickciraEva oquendo Deyanira Member ID:Not on file Relation to Subscriber:Not on file Name:EVA RIDLEY Deyanira Subscriber ID:Not on file (Home) Address: [address] [place] [address] Payer ID:Not on file Group ID:Not on file Type:Self Pay Address: [facility] Care Teams Early Childhood Specialist Relationship Specialty Start Date End Date Amado Juan MD PCP - General 03/17/18
--- OUTSIDE RECORDS SUMMARY | 2025-08-17 08:26 | XMS_ITS | Encounter Summary ---
Author Organization [facility] Address 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
== END 2025-08-17 08:19 | disposition home or self-care (01) ==
LOC: ANHGOSHLAB 08:19
PROVIDERS: PCP Nurse Practitioner Family; Visit Provider Otolaryngology
DX: J32.0 Chronic maxillary sinusitis (principal)
CPT/HCPCS: 87070; 87075; 87205